=== PATIENT | male | born 1930 | race Caucasian/White ===

== ENCOUNTER 2016-12-26 10:30 | Inpatient (IN) | payer MEDICARE, OTHER ==
[~2016-12-26] VITALS: Ht 190.5 cm; Wt 78.0 kg
[2016-12-29] MEDS ORDERED: CALC500T17 PO (09:33)
[2016-12-29] MEDS ORDERED: SYNT112T PO (09:33)
[2016-12-29] MEDS ORDERED: AMIO200T PO (09:33)
[2016-12-29] MEDS ORDERED: ESCI10TA PO (09:33)
[2016-12-29] MEDS ORDERED: MULT1TAB84 PO (09:33)
[2016-12-29] MEDS ORDERED: LEVO.1 PO (09:33)
[2017-01-09] MEDS ORDERED: ceFAZolin 2 GM PREMIX 50 ML IV SCH (05:45)
[2017-01-09] MEDS ORDERED: CHLORHEXIDINE GLUCONATE 4% SOLN 120 ML BTL TOPICAL SCH (05:45)
[2017-01-09] MEDS ORDERED: INSULIN HUMAN REGULAR 1,000 UNITS/10 ML VIAL SQ PRN (05:45)
[2017-01-09] MEDS ORDERED: CHLORHEXIDINE GLUCONATE 2 % 1 PACK (2 CLOTHS) TOPICAL PRN (05:45)
[2017-01-09] MEDS ORDERED: LACTATED RINGER'S 1000 ML IV PRN (05:45)
[2017-01-09] MEDS ORDERED: POVIDONE IODINE 5% (ANTISEPSIS KIT) 4 APPLICATIONS EACH NARE PRN (05:45)
[2017-01-09] MEDS ORDERED: SODIUM CHLORID 0.9% 500 ML IV PRN (05:45)
[2017-01-09] MEDS ORDERED: METOPROLOL TARTRATE 25 MG TAB PO PRN (05:45)
[2017-01-09 05:49] VITALS: BP 155/78; PULSE 74; RESP 20; TEMP 97.9; O2SAT 97
[2017-01-09] MEDS ORDERED: GENTAMICIN SULFATE 80 MG/2 ML VIAL ONE (06:09)
[2017-01-09] MEDS ORDERED: fentaNYL CITRATE 250 MCG/5 ML AMP ONE (06:46)
[2017-01-09] MEDS ORDERED: FAMOTIDINE 20 MG/2 ML VIAL ONE (06:46)
[2017-01-09] MEDS ORDERED: MIDAZOLAM HCL 2 MG/2 ML VIAL ONE (06:46)
[2017-01-09] MEDS ORDERED: ACETAMINOPHEN 1000 MG/100 ML VIAL IV ONE (06:46)
[2017-01-09] MEDS ORDERED: DEXAMETHASONE SOD PHOS 4 MG/ML VIAL ONE (06:47)
[2017-01-09] MEDS ORDERED: TRANEXAMIC ACID INJ 779 MG in SODIUM CHLORIDE 0.9% INJ 100 ML IV SCH ×2 (07:00→10:00)
[2017-01-09] MEDS ORDERED: EXPAREL PERI-ARTICULAR INJECTION (TOTAL VOL. 60 ML) P-ARTICULR SCH ×2 (07:00)
[2017-01-09] MEDS ORDERED: SODIUM CHLORIDE 0.9% FLUSH 5 ML FLUSH IVF PRN (09:45)
[2017-01-09] MEDS ORDERED: Post-op Orders (for Pharmacy) MISC XX ONE (09:45)
[2017-01-09] MEDS ORDERED: ACETAMINOPHEN/HYDROcodone 325 MG/7.5 MG TAB PO PRN (09:45)
[2017-01-09] MEDS ORDERED: ONDANSETRON HCL 4 MG/2 ML VIAL IVP PRN (09:45)
[2017-01-09] MEDS ORDERED: BISACODYL 10 MG SUPP RECTAL PRN (09:45)
[2017-01-09] MEDS ORDERED: TRANEXAMIC ACID INJ 0 MG in SODIUM CHLORIDE 0.9% INJ 100 ML IV SCH (09:45)
[2017-01-09] MEDS ORDERED: MORPHINE SULFATE 8 MG/ML INJ IV PUSH PRN (09:45)
--- NOTE | 2017-01-09 09:49 | HHI.FF ---
Face to Face Verification Diagnosis: (1) Status post total hip replacement, right Physical Therapy Gait training Hip: Total hip, Protocol: Right, Posterior hip precautions, Progress to weight bearing Canvas Knee Splint: When in bed & 2 pillows btw thighs Right LE Weight Bearing: WB as tolerated Right LE Range of Motion: Active ROM Nursing Nursing: Dressing changes Dressing Changes: Daily dressing change, Coverderm/Primapore Additional Instructions Remove steristrips on postop day 14. I have seen patient Ranjit Cortez on 01/09/17. My clinical findings support the need for the requested home health care services because: Ltd mobility - disease progression Limited ability to care for self High risk of falls I certify that my clinical findings support that this patient is homebound because: Post-op weakness Unsteady gait/balance Unsafe to leave home unassisted Tea Linares MD (Charles) January 09, 2017 09:48
[2017-01-09] MEDS ORDERED: DO NOT ADM ANY ANTICOAGULANT DRUGS PRN (10:15)
[2017-01-09] MEDS ORDERED: *morphine SULFATE 8 MG/ML PERIprocedure ONLY ONE (10:21)
[2017-01-09] MEDS: LACTATED RINGER'S 1000 ML INJ 1,000 ML IV SCH ×2 (10:40→23:02)
[2017-01-09] MEDS: KETOROLAC TROMETHAMINE 30 MG/ML (IVP) VIAL IVP SCH ×3 (10:41→23:01)
--- NOTE | 2017-01-09 10:52 | RADRPT ---
EXAM DATE/TIME: 01/09/2017 10:22 [facility] COMPARISON: HIP RIGHT (AP & LAT), April 07, 2015, 16:30. INDICATIONS : Post op right hip replacement surgery. MEDICAL HISTORY : None. SURGICAL HISTORY : None. ENCOUNTER: Initial ACUITY: 1 day PAIN SCORE: 0/10 LOCATION: Right hip FINDINGS: 2 views of the hip reveal a total hip prosthesis in good position. No fracture or dislocation is obse rved. A small amount of air is seen within the joint. Soft tissue swelling is noted. CONCLUSION: Hip implant in good position. Ethan Spence Jr., MD on January 09, 2017 at 10:49 Board Certified Radiologist. This report was verified electronically.
[2017-01-09] MEDS: ACETAMINOPHEN/HYDROcodone 325 MG/7.5 MG TAB PO PRN (12:11)
--- NOTE | 2017-01-09 12:46 | MP ---
cc: Colton SHELBY. DATE OF SURGERY: 01/09/2017 PREOPERATIVE DIAGNOSIS Primary osteoarthritis right hip with retained hardware post in situ pinning with cannulated screws. POSTOPERATIVE DIAGNOSIS Primary osteoarthritis right hip with retained hardware post in situ pinning with cannulated screws. OPERATION PERFORMED Right total hip arthroplasty and removal of deep retained hardware, right hip. SURGEON Tea Shelby MD ELASTIC ATTACHER ZIGZAG BRODY [place] ANESTHESIA General endotracheal with supplemental local. INDICATIONS AND FINDINGS This 86-year-old man has had a two-year history of right hip pain subsequent to a subcapital fracture that was repaired by another surgeon locally. He has had progressive increase in pain with pain on ambulation and even rest pain. His ambulation tolerance is one-quarter mile because of the pain. He has stiffness and difficulty ascending and descending stairs and difficulty standing from a seated position. He has pain when trying to raise his leg. He has not responded to conservative measures with nonsteroidal anti-inflammatory agents, activity modification, exercise and ambulatory aids. Imaging studies showed significant arthritis in the right hip with loss of articular cartilage to [id number] with there being eburnation and osteophytes. There were three cannulated screws in the upper anterior border of the femoral head. The femoral head is out of round. Operative findings showed evidence of a healed subcapital fracture of the femur with there being severe osteoarthritis with osteophytes and eburnation. There were three cannulated screws in the femoral head. There was no sign of infection. PROCEDURE The patient was brought to the operating room and a general anesthetic was administered. He was placed in a lateral position on a Biomet lateral positioner with the right hip up. An axillary roll was placed under the left shoulder. The left shoulder was then prepped with alcohol, Hibiclens and ChloraPrep and draped in the usual manner with the hip draped free. He received prophylactic antibiotics in the form of Ancef 2 grams preoperatively and also received tranexamic acid. An appropriate timeout procedure was carried out. Local anesthesia was administered in the incision site prior to making the incision. A posterolateral incision was then made extending approximately 15 cm and centered over the posterior superior greater trochanter. The incision was deepened through subcutaneous tissues to the fascia satnam and gluteus fascia which were incised in line with their fibers and the skin incision. The posterior aspect of the hip was exposed. Dissection was carried down to the area of the screws. The screw heads were then exposed through an incision in the vastus lateralis near its origin. Attention was then directed back to the posterior aspect of the hip. The external rotators were transected off the posterior aspect of the greater trochanter along with the capsule which was reflected in a posteriorly based flap. The sciatic nerve was protected throughout the procedure. The hip was dislocated and some releases made to facilitate re-dislocation. The hip was then reduced again. The three screws were then serially removed. The hip was dislocated again. The femoral neck was transected. The femoral head was removed. Femoral preparation was then started with the box osteotome followed by the curved curet which identified the line of the medullary canal. Broaching was started at size 0 and went to a size 8. A size 8 broach was left in place. Calcar planing was not necessary. The hip was then repositioned. Retractors were placed about the acetabulum. The soft tissues were cleaned from the acetabulum. Hemostasis was achieved with a combination of electrocautery and suture ligatures during the procedure. The acetabulum was then reamed starting at size 49 and went in 1 mm increments up to size 58. A size 58 trial prosthesis was inserted and seated appropriately and was stable. This was then removed. A 58 mm tritanium cluster cup shell was impacted into place in the appropriate position after irrigating the acetabulum. When this was seated two screws were then placed, one 20 mm and one 25 mm for further stability. A 0 degree, 36 mm inner diameter liner was inserted and seated appropriately. With this seated attention was directed back to the femur. A trial prosthesis was inserted onto the broach for a 132 degree neck with a 0 and then a -5 mm neck length. The -5 appeared to be appropriate. The stability was excellent. The motion was excellent. There was no pistoning. The leg lengths were appropriate. This was then removed along with the broach. Local anesthesia was administered throughout the hip with Exparel. The medullary canal was cleaned with pulse lavage. The prosthesis which is a size 8 x 132 degree Accolade II stem was impacted into place and seated appropriately. Trial reduction showed the same findings as previously. The trunnion was cleaned and dried. A 36 mm diameter -5 mm neck length femoral head which was a [place] chrome head was impacted onto the trunnion. The hip was reduced. The capsular structures and external rotators were repaired back to bone with a Krackow technique and transosseous sutures. This was done with #1 Vicryl. The sciatic nerve was again inspected. The remainder of the Exparel was injected throughout the hip. The incision in the vastus laterals was repaired with #1 Vicryl interrupted [id number]-xf-[id number] sutures. The fascia satnam and gluteus fascia were repaired with the same suture and technique. The subcutaneous tissue was closed with 2-0 Vicryl interrupted simple sutures with buried knots. The skin was closed with continuous subcuticular closure of 4-0 Monocryl. The wound was dressed with Steri-Strips followed by dry dressing, sterile ABD and Medipore compression hip dressing. The leg was placed into a knee immobilizer. The patient was transported to the recovery room in satisfactory condition having tolerated the procedure well. Counts were correct. Specimens none. Estimated blood loss 600 mL. MD RADHA Alvarez/RUI /9:56 AM /12:29 PM
[2017-01-09 13:55] VITALS: BP 168/71; PULSE 73; RESP 16; TEMP 96.6; O2SAT 98
[2017-01-09] MEDS ORDERED: PROPOFOL 200 MG/20 ML AMP IV ONE (14:08)
[2017-01-09] MEDS ORDERED: NEOSTIGMINE METHYLSULFATE 10 MG/10 ML VIAL IV PUSH ONE (14:09)
[2017-01-09] MEDS ORDERED: PHENYLEPH/NS 1000 MCG/10 ML SYR IV ONE (14:10)
[2017-01-09] MEDS ORDERED: LACTATED RINGER'S 1000 ML INJ 1,000 ML IV ONE (14:10)
[2017-01-09] MEDS ORDERED: ONDANSETRON HCL 4 MG/2 ML VIAL IV PUSH ONE (14:10)
[2017-01-09 20:20] VITALS: BP 129/60; PULSE 75; RESP 18; TEMP 97.8; O2SAT 96
[2017-01-09] MEDS: SODIUM CHLORIDE 0.9% FLUSH 5 ML FLUSH IVF SCH (20:30)
[2017-01-09] MEDS ORDERED: ZOLPIDEM TARTRATE 5 MG TAB PO PRN (21:00)
[2017-01-10] VITALS (7 sets, daily range): BP systolic 110–125; BP diastolic 50–64; PULSE 67–75; RESP 16–18; TEMP 96.7–98.2; O2SAT 95–98
[2017-01-10] MEDS: LEVOTHYROXINE SODIUM 100 MCG TAB PO SCH (05:11)
[2017-01-10] MEDS: LEVOTHYROXINE SODIUM 112 MCG TAB PO SCH (05:11)
[2017-01-10] MEDS: MAGNESIUM HYDROXIDE SUSP 30 ML CUP PO PRN (05:11)
[2017-01-10] MEDS: KETOROLAC TROMETHAMINE 30 MG/ML (IVP) VIAL IVP SCH ×4 (05:11→23:18)
[2017-01-10 05:53] LABS: REVIEW FLAG FINAL
--- NOTE | 2017-01-10 07:36 | PD.ORT.PN ---
Subjective Post Op Day #: 1 Subjective Remarks He has minimal pain. He indicates that he walked a few steps in PACU and none when he got to the floor. Distance Walked 5 feet with PT. Objective Vitals Vital Signs Date Time Temp Pulse Resp B/P Pulse Ox O2 Delivery O2 Flow Rate FiO2 01/10/17 04:00 97.0 67 17 120/58 96 01/10/17 00:20 98.0 70 17 125/64 98 01/09/17 20:20 97.8 75 18 129/60 96 01/09/17 13:55 96.6 73 16 168/71 98 01/09/17 12:30 67 16 157/78 100 Nasal Cannula 2 01/09/17 10:30 65 16 135/63 100 Nasal Cannula 2 01/09/17 10:15 66 16 140/63 100 Nasal Cannula 2 01/09/17 10:00 68 16 149/68 99 Nasal Cannula 2 01/09/17 09:59 97.7 67 16 154/69 100 Nasal Cannula 2 I/O 01/09/17 01/09/17 01/09/17 01/10/17 01/10/17 01/10/17 07:00 15:00 23:00 07:00 15:00 23:00 Intake Total 1850 ml 750 ml 859 ml Output Total 600 ml 200 ml 500 ml Balance 1250 ml 550 ml 359 ml Intake Oral 250 ml 120 ml 240 ml IV Total 400 ml 630 ml 619 ml Other 1200 ml Output Urine Total 0 ml 200 ml 500 ml Estimated Blood Loss 600 ml Other 0 ml # Bowel Movements 0 0 Result Diagram: 01/10/17 0345 Imaging Hip x-ray looks good. Last 72 hours Impressions Hip X-Ray 01/09/17 0000 Signed Impressions: Service Date/Time: Monday, January 09, 2017 10:22 - CONCLUSION: Hip implant in good position. Ethan Spence Jr., MD Objective Remarks He is resting comfortably, supine in bed. The neurovascular status is intact. The dressing is dry and intact. Assessment & Plan Ortho Post Op Day #: 1 Problem List: (1) Status post total hip replacement, right Plan: Continue poastop care and PT. Assessment and Plan Condition: Good. Orthopaedically stable. DVT prophylaxis: TEDs, sequentials, ASA. Discharge plans: Home with home health care. Has appointment. Tea Linares MD (Charles) January 10, 2017 07:36
[2017-01-10] MEDS ORDERED: HYDR-3580 PO (08:00)
[2017-01-10] MEDS ORDERED: ASPI81TA11 PO (08:00)
[2017-01-10] MEDS: CALCIUM CARBONATE 1.25 GM (CA 500 MG) TAB PO SCH (08:49)
[2017-01-10] MEDS: AMIODARONE 200 MG TAB PO SCH (08:49)
[2017-01-10] MEDS: MULTIVITAMINS/MINERALS THERAPEUTIC TAB PO SCH (08:49)
[2017-01-10] MEDS: ESCITALOPRAM OXALATE 10 MG TAB PO SCH (08:50)
[2017-01-10] MEDS: SODIUM CHLORIDE 0.9% FLUSH 5 ML FLUSH IVF SCH ×2 (08:51→20:15)
[2017-01-10] MEDS: ASPIRIN EC 81 MG TABEC PO SCH ×2 (08:51→20:15)
[2017-01-10] MEDS: LACTATED RINGER'S 1000 ML INJ 1,000 ML IV SCH ×2 (10:40→23:10)
--- NOTE | 2017-01-10 12:17 | PD.CONS ---
[facility] Reason for Consult Medical management Primary Care Physician Nguyễn Roberts MD Diagnoses: History of Present Illness 86 years old male admitted for right total hip arthroplasty, patient from [place] he told me he has a history of hypothyroidism he takes Synthroid, he also was told that he has a murmur but not significant as well as that he has minimal nonsignificant level of CHF. Patient stated his blood pressure usually around 125/50, he is not on KIMI inhibitor or diuretic. He told me he follow up every 4 months with his breakfast hostess. Currently he denied any chest pain short of breath headache lightheaded abdominal pain diarrhea constipation. However he reported chronic fatigue and feeling tired, especially on exertion but he denied specific chest pain or short of breath. I advised with him extensively to continue following up closely with his breakfast hostess and primary care physician and at the same time organ a check his TSH, CBC and BMP and electrolyte as well as BNP Review of Systems Constitutional: COMPLAINS OF: Fatigue Except as stated in HPI: all other systems reviewed are Neg Past Family Social History Allergies: Uncoded Allergies: RUBBER (Allergy, Severe, ITCHING, 12/29/16) Past Medical History Hypothyroidism Patient was told he had minimal level of CHF, and nonsignificant heart murmur Atrial fibrillation Hypertension Hypothyroidism Colon cancer Past Surgical History Colon resection for colon cancer Family History Significant for diabetes mellitus Social History He drinks one drink 5 times a week, no alcohol or illicit drug abuse Physical Exam Vital Signs Vital Signs Date Time Temp Pulse Resp B/P Pulse Ox O2 Delivery O2 Flow Rate FiO2 01/10/17 09:33 98 Nasal Cannula 2.00 01/10/17 08:00 98.0 75 16 114/52 96 01/10/17 04:00 97.0 67 17 120/58 96 01/10/17 00:20 98.0 70 17 125/64 98 01/09/17 20:20 97.8 75 18 129/60 96 01/09/17 13:55 96.6 73 16 168/71 98 01/09/17 12:30 67 16 157/78 100 Nasal Cannula 2 Physical Exam GENERAL: This is a well-nourished, well-developed patient, in no apparent distress. SKIN: No rashes, warm and dry HEAD: Atraumatic. Normocephalic. EYES: Pupils equal round and reactive. Extraocular motions intact. No scleral icterus. ENT: Nose without bleeding, or drainage, Airway patent. NECK: Trachea midline. Supple CARDIOVASCULAR: Regular rate and rhythm 4/6 systolic crescendo decrescendo murmur RESPIRATORY: Fair air entry bilaterally. No wheezes, rales, or rhonchi. GASTROINTESTINAL: Abdomen soft, non-tender, nondistended. Positive bowel sounds MUSCULOSKELETAL: Extremities without clubbing, cyanosis, or edema. Pedal pulses appreciated NEUROLOGICAL: Awake and alert. Moves all extremity. Normal speech.no focal neurological deficit Laboratory Laboratory Tests Test 01/10/17 03:45 Hemoglobin 9.2 Hematocrit 29.0 Result Diagram: 01/10/17 0345 Imaging Last Impressions Hip X-Ray 01/09/17 0000 Signed Impressions: Service Date/Time: Monday, January 09, 2017 10:22 - CONCLUSION: Hip implant in good position. Ethan Spence Jr., MD Assessment and Plan Assessment and Plan 86 years old male with history of hypothyroidism heart murmur hypertension admitted for -Right total hip arthroplasty: Doing well post op, pain management, DVT prophylaxis per ortho -Complain of constant fatigue> will check TSH, CBC to rule out anemia, patient and his family about reason for his fatigue, patient confirmed to me along with his family that he t sees his breakfast hostess every 4 months, he doesn't know what' s the valvulopathy he has but he was told it's not significant -History of CHF with systolic heart murmur 4/6 last 2-D echo 2 years ago as per the patient but he is following up closely every 4 months with his breakfast hostess , will check BMP, BNP Rodger Cain MD January 10, 2017 12:17
[2017-01-10 13:37] LABS: AUTOMATED NEUTROPHIL # 12.9 TH/MM3 (1.8-7.7); BASOPHIL # 0.1 TH/MM3 (0-0.2); BASOPHIL % 0.4 % (0.0-2.0); HEMATOCRIT 30.3 % (39.0-51.0); HEMO FLAGS DIFF FINAL; LYMPHOCYTE # 1.5 TH/MM3 (1.0-4.8); MEAN CELL VOLUME 82.7 FL (80.0-100.0); MEAN CORPUSCULAR HEMOGLOBIN 26.3 PG (27.0-34.0); MEAN CORPUSCULAR HGB CONC 31.9 % (32.0-36.0); NEUT % 79.6 % (16.0-70.0); PLATELET COUNT 232 TH/MM3 (150-450); RED BLOOD COUNT 3.67 MIL/MM3 (4.50-5.90); RED CELL DISTRIBUTION WIDTH 13.8 % (11.6-17.2); WHITE BLOOD COUNT 16.2 TH/MM3 (4.0-11.0)
[2017-01-10 13:56] LABS: BICARBONATE 27.6 MEQ/L (21.0-32.0); POTASSIUM 4.3 MEQ/L (3.5-5.1)
[2017-01-10] MEDS: DOCUSATE SODIUM 100 MG CAP PO SCH (20:15)
[2017-01-11] VITALS: BP 137/62; PULSE 77; RESP 17; TEMP 97; O2SAT 93
[2017-01-11 04:15] VITALS: BP 122/57; PULSE 67; RESP 16; TEMP 97.1; O2SAT 96
[2017-01-11] MEDS: KETOROLAC TROMETHAMINE 30 MG/ML (IVP) VIAL IVP SCH (05:24)
[2017-01-11] MEDS: LEVOTHYROXINE SODIUM 100 MCG TAB PO SCH (05:24)
[2017-01-11] MEDS: LEVOTHYROXINE SODIUM 112 MCG TAB PO SCH (05:24)
[2017-01-11] MEDS: ACETAMINOPHEN/HYDROcodone 325 MG/7.5 MG TAB PO PRN ×2 (05:27→10:17)
[2017-01-11 06:04] LABS: HEMATOCRIT 25.7 % (39.0-51.0); REVIEW FLAG FINAL
--- NOTE | 2017-01-11 06:44 | PD.ORT.PN ---
Subjective Post Op Day #: 2 Subjective Remarks He has minimal pain. He attended the class. He is ready to go home. Distance Walked 72 feet twice with PT. Objective Vitals Vital Signs Date Time Temp Pulse Resp B/P Pulse Ox O2 Delivery O2 Flow Rate FiO2 01/11/17 04:15 97.1 67 16 122/57 96 01/11/17 00:00 97.0 77 17 137/62 93 01/10/17 20:01 21 01/10/17 20:00 97.6 72 16 114/51 96 01/10/17 16:00 98.2 73 18 117/54 98 01/10/17 12:00 96.7 73 16 110/50 95 01/10/17 09:33 98 Nasal Cannula 2.00 01/10/17 08:00 98.0 75 16 114/52 96 I/O 01/10/17 01/10/17 01/10/17 01/11/17 01/11/17 01/11/17 07:00 15:00 23:00 07:00 15:00 23:00 Intake Total 859 ml 980 ml 460 ml 320 ml Output Total 500 ml 400 ml 600 ml Balance 359 ml 980 ml 60 ml -280 ml Intake Oral 240 ml 980 ml 460 ml 320 ml IV Total 619 ml Output Urine Total 500 ml 400 ml 600 ml # Voids 2 # Bowel Movements 0 0 0 0 Result Diagram: 01/11/17 0523 01/10/17 1317 Imaging Hip x-ray looks good. Last 72 hours Impressions Hip X-Ray 01/09/17 0000 Signed Impressions: Service Date/Time: Monday, January 09, 2017 10:22 - CONCLUSION: Hip implant in good position. Ethan Spence Jr., MD Objective Remarks He is resting comfortably, supine in bed. The neurovascular status is intact. The new dressing is dry and intact. Assessment & Plan Ortho Post Op Day #: 2 Problem List: (1) Status post total hip replacement, right Plan: Continue postop care and PT. Assessment and Plan Condition: Good. Orthopaedically stable. DVT prophylaxis: TEDs, sequentials, ASA. Discharge plans: Home with home health care. Has appointment. Rx [place] 7.5/325 Tea Linares MD (Charles) January 11, 2017 06:44
[2017-01-11 08:00] VITALS: BP 114/57; PULSE 67; RESP 18; TEMP 97.9; O2SAT 92
[2017-01-11] MEDS: SODIUM CHLORIDE 0.9% FLUSH 5 ML FLUSH IVF SCH (09:00)
[2017-01-11] MEDS: ESCITALOPRAM OXALATE 10 MG TAB PO SCH (10:16)
[2017-01-11] MEDS: AMIODARONE 200 MG TAB PO SCH (10:16)
[2017-01-11] MEDS: CALCIUM CARBONATE 1.25 GM (CA 500 MG) TAB PO SCH (10:16)
[2017-01-11] MEDS: ASPIRIN EC 81 MG TABEC PO SCH (10:16)
[2017-01-11] MEDS: MULTIVITAMINS/MINERALS THERAPEUTIC TAB PO SCH (10:16)
[2017-01-11] MEDS: DOCUSATE SODIUM 100 MG CAP PO SCH (10:16)
[2017-01-11] MEDS: MAGNESIUM HYDROXIDE SUSP 30 ML CUP PO PRN (10:16)
[2017-01-11] MEDS: LACTATED RINGER'S 1000 ML INJ 1,000 ML IV SCH (10:17)
--- NOTE | 2017-01-29 09:24 | MD ---
cc: Colton SHELBY. ADMISSION DATE: 01/09/2017 DISCHARGE DATE: 01/11/2017 ADMISSION DIAGNOSIS Osteoarthritis right hip with retained hardware post in situ pinning with cannulated screws. FINAL DIAGNOSIS Osteoarthritis right hip with retained hardware post in situ pinning with cannulated screws. OPERATIONS DURING THE HOSPITALIZATION Right total hip arthroplasty with removal of deep retained hardware right hip on 01/09/2017. PRESENT ILLNESS This 86-year-old man has a 2-year history of right hip pain progressively worsening subsequent to a subcapital fracture treated with screws. His ambulation tolerance is one-quarter mile. He has stiffness with difficulty ascending and descending stairs and difficulty standing from a seated position. He had pain when trying to raise the leg and had not responded to conservative measures with nonsteroidal anti-inflammatory agents, activity modification, exercise and ambulatory aids. Physical findings showed limited range of motion in the hip with tenderness on motion and a well-healed scar. Imaging studies showed severe osteoarthritis with loss of articular cartilage to [id number] with eburnation osteophytes along with three cannulated screws in the upper anterior border of the femoral head. The femoral head was well out of round. HOSPITAL COURSE The patient was admitted on 01/09/2017. After discussion with the anesthesiologist, he was taken to the clean-air operating suite where a general anesthetic was administered. He received prophylactic antibiotics in the form of Ancef. He also received tranexamic acid. A total hip arthroplasty and removal of hardware was carried out at that time. He tolerated the procedure well. On the first postoperative day he did indicate that he had walked a few steps in the Post-Anesthesia Care Unit but none on the floor. He walked 5 feet with the therapist. He had minimal pain. His temperature was 98.0. He was stable and felt comfortable. Hemoglobin was 9.2 with a hematocrit of 29.0. X-rays showed excellent position and alignment of the prosthesis. His neurovascular status was intact. Arrangements were made for eventual discharge home with home health care. On the second postoperative day he also had minimal pain. He indicated that he had attended class and indicated the desire to return home. The day before he walked 72 feet, twice with physical therapy. His maximum temperature was 98.2. His vital signs remained stable. His hemoglobin was 8.4 with hematocrit of 25.7. Arrangements were made for discharge home with home health care after therapy. On the day of discharge he did walk 75 feet twice with physical therapist as well. He tolerated this well. He was discharged home on this day with home health care being arranged. Follow-up appointment was scheduled. DISCHARGE MEDICATIONS 1. Hawley 7.5/325 for pain. 2. He was to continue using his NICK stockings and aspirin as an anticoagulant. He was also instructed on the use of a canvas knee splint while sleeping. MD RADHA Alvarez/ALEXANDER /10:17 AM /9:17 AM
== END 2017-01-11 12:28 | disposition home health service (06) | DRG 470 ==
LOC: HSDI 01-09 05:16 → N06A 01-09 14:03
PROVIDERS: ADMIT Orthopaedic Surgery; ATTEND Orthopaedic Surgery
PROC: 0SR901A Replacement of Right Hip Joint with Metal Synthetic Substitute, Uncemented, Open Approach (ICD-10-PCS; principal; 2017-01-09 06:46)
DX: M16.11 Unilateral primary osteoarthritis, right hip (principal); I50.22 Chronic systolic (congestive) heart failure; I10 Essential (primary) hypertension; E03.9 Hypothyroidism, unspecified; Z85.038 Personal history of other malignant neoplasm of large intestine
CPT/HCPCS: 73502; 80048; 84443; 85014; 85018; 85025; 86850; 86900; 86901; 94150; C1776; C9290; J0131; J0690; J1100; J1580; J1885; J2250; J2270; J2370; J2405; J2710; J3010; J7120; L1830

== ENCOUNTER → 2016-12-29 | Outpatient (CLI) | payer MEDICARE, OTHER ==
[~2016-12-29] MED LIST: AMIO200T PO; ASPI81TA11 PO; CALC500T17 PO; ENOX30P SQ; ESCI10TA PO; HYDR-3580 PO; LEVO.1 PO; LEVO50IN PO; LISI-360 PO; MULT1TAB84 PO; MVI PO; NYST500KS SWISH-SWAL; PROS5TAB2 PO; SYNT112T PO
[2016-12-29 10:03] LABS: HEMATOCRIT 40.1 % (39.0-51.0); MEAN CELL VOLUME 82.4 FL (80.0-100.0); MEAN CORPUSCULAR HEMOGLOBIN 26.2 PG (27.0-34.0); MEAN CORPUSCULAR HGB CONC 31.8 % (32.0-36.0); PLATELET COUNT 289 TH/MM3 (150-450); RED BLOOD COUNT 4.87 MIL/MM3 (4.50-5.90); RED CELL DISTRIBUTION WIDTH 13.2 % (11.6-17.2); REVIEW FLAG FINAL; WHITE BLOOD COUNT 11.8 TH/MM3 (4.0-11.0)
[2016-12-29 10:13] LABS: APTT (PATIENT) 29.9 SEC (24.3-30.1); PROTHROMBIN TIME - PATIENT 10.7 SEC (9.8-11.6)
[2016-12-29 10:34] LABS: BICARBONATE 30.8 MEQ/L (21.0-32.0); POTASSIUM 4.5 MEQ/L (3.5-5.1)
[2016-12-29 12:10] LABS: BLOOD, URINE NEG (NEG); COMMENT (UR) CULT NOT INDICATED; CULTURE IF INDICATED CULT NOT INDICATED; GLUCOSE,URINE NEG (NEG); HYALINE CAST, URINE 12 /lpf (RARE); KETONE, URINE NEG (NEG); MUCUS URINE FEW /lpf (OCC); NITRITE,URINE NEG (NEG); PH, URINE 6.5 (5.0-8.5); URINE COLOR YELLOW (YELLW/STRAW)
--- NOTE | 2016-12-29 19:36 | EKG ---
Date Performed: 12/29/2016 Time Performed: 09:18:38 PTAGE: 86 years EKG: Sinus rhythm Compared to prior tracing no significant change NORMAL ECG PREVIOUS TRACING : 03/26/2015 22.41 DOCTOR: Nik Brenner Interpretating Date/Time 12/29/2016 19:33:30
== END ==
LOC: CPRE 08:47
PROVIDERS: ATTEND Orthopaedic Surgery
DX: Z01.812 Encounter for preprocedural laboratory examination (principal); Z01.810 Encounter for preprocedural cardiovascular examination; I48.0 Paroxysmal atrial fibrillation; M16.11 Unilateral primary osteoarthritis, right hip; S72.091 Other fracture of head and neck of right femur; Z47.2 Encounter for removal of internal fixation device; M79.609 Pain in unspecified limb; X58.XXXS Exposure to other specified factors, sequela
CPT/HCPCS: 36415; 80048; 81001; 85027; 85610; 85730; 93005

== ENCOUNTER 2017-01-13 12:25 | Inpatient (IN) | payer MEDICARE, OTHER ==
[2017-01-13] VITALS (16 sets, daily range): BP systolic 112–152; BP diastolic 54–73; PULSE 68–86; RESP 12–26; TEMP 97.4–98.6; O2SAT 20–100
[~2017-01-13] VITALS: Ht 190.5 cm; Wt 71.8 kg
[~2017-01-13 12:25] MED LIST changes: -ENOX30P SQ; -LEVO50IN PO; -LISI-360 PO; -MVI PO; -NYST500KS SWISH-SWAL; -PROS5TAB2 PO
[2017-01-13 12:47] LABS: BLOOD GAS HCO3 25 mmol/L (22-26); BLOOD GAS METHEMOGLOBIN 0.6 % (0-2); BLOOD GAS O2 HGB SATURATION 56 % (90-100); BLOOD GAS OXYGEN CONTENT 7.1 Vol % (12.0-20.0); BLOOD GAS PCO2 35 mmHg (38-42); BLOOD GAS PO2 29 mmHG (61-120); CRITICAL VALUE YES; DRAW SITE RT RADIAL; FIO2 21 %; NUMBER OF ARTERIAL PUNCTURES 1; OXYGEN DEVICE ROOM AIR; STAT YES; TEMP CORR TO 98.6; ULNAR PULSE PRESENT
--- NOTE | 2017-01-13 13:03 | PD ---
HPI Chief Complaint: Respiratory Symptoms Time Seen by Provider: 12:41 Travel History International Travel<30 days: No Contact w/Intl Traveler<30days: No Traveled to known affect area: No History of Present Illness HPI Patient is an 86-year-old male who presents to emergency room with complaints of shortness of breath. As per EMS, patient had a right hip replacement performed on Sunday by Dr. Linares. Patient reports that he was discharged to home on . Patient reports that he felt fine after his discharge, reports that he began to feel sick last night. Patients reports that patient had the chills, reports that he was feeling weak and has had a productive cough since last night.. Reports that this morning, he was complaining of shortness of breath. When patient's home nurse arrived, she noted that patients pulse ox was 35%on room air. Patient does not use home O2. EMS were called, fire rescue reports that patient's pulse ox was 50% on room air. Patient was put on a nonrebreather which brought his pulse ox to 80%. When EMS arrived on scene, patient's pulse ox went to the low 90s on a nonrebreather. Patient reports that he felt short of breath prior to being placed on oxygen, reports that he is feeling much better with oxygen in place. Patient does have history of hypothyroidism, CHF, A. fib, hypertension, colon cancer, he currently takes a baby aspirin and is not on any anticoagulants. PFSH Past Medical History Hx Anticoagulant Therapy: Yes (ASA ) Arthritis: Yes (Right Hip ) Asthma: No Atrial Fibrillation: Yes Autoimmune Disease: No Anxiety: No Depression: No Heart Rhythm Problems: Yes (A-Fib ) Cancer: Yes (COLON 2008 s/p Colon section ) Cardiovascular Problems: Yes (MURMUR, AFIB ) High Cholesterol: No Chemotherapy: Yes Chest Pain: No Congestive Heart Failure: No COPD: No Cerebrovascular Accident: No Diabetes: No Diminished Hearing: No Endocrine: Yes GERD: No Genitourinary: Yes (FREQUENCY AT HS) Hepatitis: No Hiatal Hernia: Yes Immune Disorder: No Kidney Stones: No Musculoskeletal: Yes (OA) Neurologic: Yes Psychiatric: No Reproductive: No Respiratory: No Migraines: No Radiation Therapy: No Renal Failure: No Seizures: No Sickle Cell Disease: No Sleep Apnea: No Thyroid Disease: Yes (hypothyroidism) Ulcer: No Past Surgical History Abdominal Surgery: Yes (COLON RESECTION secondary to colon CA 2007,HERNIA REPAIR) AICD: No Arteriovenous Shunt: No Body Medical Devices: SCREWS RIGHT LEG Cardiac Surgery: No Ear Surgery: No Endocrine Surgery: No Eye Surgery: No Genitourinary Surgery: No Gynecologic Surgery: No Insulin Pump: Yes Joint Replacement: Yes (S/P ORIF right hip ) Oral Surgery: No Pacemaker: No Thoracic Surgery: No Social History Alcohol Use: Yes (ONE DRINK EVERY OTHER DAY) Tobacco Use: No Substance Use: No Allergies-Medications (Allergen,Severity, Reaction): Uncoded Allergies: RUBBER (Allergy, Severe, ITCHING, 12/29/16) Reported Meds & Prescriptions Reported Meds & Active Scripts Active Hydrocodone-Acetaminophen 7.5-325 mg Tab 1 Tab PO Q4H PRN Aspirin EC (Aspirin) 81 Mg Tabdr 81 Mg PO BID Reported Calcium (Calcium Carbonate) 1,250 Mg Tab 1,250 Mg PO DAILY 1,250 mg calcium carbonate (500 mg elemental calcium) Multivitamin Adults (Multiple Vitamins W/ Minerals) 1 Tab 1 Tab PO DAILY Amiodarone (Amiodarone HCl) 200 Mg Tab 200 Mg PO DAILY Synthroid (Levothyroxine Sodium) 100 Mcg Tab 100 Mcg PO DAILY take with 112 mcg for toatal sose of 212mcg Synthroid (Levothyroxine Sodium) 112 Mcg Tab 112 Mcg PO DAILY take with 100 mcg for toatal sose of 212mcg Review of Systems General / Constitutional: No: Fever Eyes: No: Visual changes HENT: No: Headaches Cardiovascular: No: Chest Pain or Discomfort Respiratory: Positive: Cough, Shortness of Breath Gastrointestinal: No: Abdominal Pain Genitourinary: No: Dysuria Musculoskeletal: No: Pain Skin: No Rash Neurologic: No: Weakness Psychiatric: No: Depression Endocrine: No: Polydipsia Hematologic/Lymphatic: No: Easy Bruising Physical Exam Narrative GENERAL: moderate distress, patient hypoxic on exam SKIN: Focused skin assessment warm/dry. HEAD: Atraumatic. Normocephalic. EYES: Pupils equal and round. No scleral icterus. No injection or drainage. ENT: No nasal bleeding or discharge. Mucous membranes pink and moist. NECK: Trachea midline. No JVD. CARDIOVASCULAR: Regular rate and rhythm. No murmur appreciated. RESPIRATORY: No accessory muscle use. rhonchi to lung bases. GASTROINTESTINAL: Abdomen soft, non-tender, nondistended. Hepatic and splenic margins not palpable. MUSCULOSKELETAL: No obvious deformities. No clubbing. No cyanosis. No edema. NEUROLOGICAL: Awake and alert. No obvious cranial nerve deficits. Motor grossly within normal limits. Normal speech. PSYCHIATRIC: Appropriate mood and affect; insight and judgment normal. Data Data Last Documented VS Vital Signs Date Time Temp Pulse Resp B/P Pulse Ox O2 Delivery O2 Flow Rate FiO2 01/13/17 14:22 97 01/13/17 13:15 79 18 134/68 Non-Rebreather 15 01/13/17 12:48 21 01/13/17 12:25 98.6 Orders Complete Blood Count With Diff (01/13/17 12:41) Comprehensive Metabolic Panel (01/13/17 12:41) Prothrombin Time / Inr (Pt) (01/13/17 12:41) Act Partial Throm Time (Ptt) (01/13/17 12:41) Lactic Acid Sepsis Protocol (01/13/17 12:41) Magnesium (Mg) (01/13/17 12:41) Ckmb (Isoenzyme) Profile (01/13/17 12:41) Troponin I (01/13/17 12:41) Urinalysis - C+S If Indicated (01/13/17 12:41) Influenzae A/B Antigen (01/13/17 12:41) Blood Culture (01/13/17 12:41) Chest, Single Ap (01/13/17 12:41) Arterial Blood Gas (Abg) (01/13/17 12:41) Blood Glucose (01/13/17 12:41) Ecg Monitoring (01/13/17 12:41) Iv Access Insert/Monitor (01/13/17 12:41) Oximetry (01/13/17 12:41) Oxygen Administration (01/13/17 12:41) B-Type Natriuretic Peptide (01/13/17 12:52) I-Stat Profile (01/13/17 12:52) I-Stat Creatinine (01/13/17 12:52) Furosemide Inj (Lasix Inj) (01/13/17 13:15) Ct Pulmonary Angiogram (01/13/17 13:13) Piperacil-Tazo 3.375 Gm Premix (Zosyn 3. (01/13/17 13:45) Vancomycin Inj (Vancomycin Inj) (01/13/17 13:45) CKMB (01/13/17 12:50) CKMB% (01/13/17 12:50) Aspirin Chew (Aspirin Chew) (01/13/17 14:00) Iohexol 350 Inj (Omnipaque 350 Inj) (01/13/17 13:57) Resp Bipap / Cpap Non Invas Vt (01/13/17 ) Labs Laboratory Tests Test 01/13/17 01/13/17 12:41 12:50 Blood Gas Puncture Site RT RADIAL Blood Gas Patient Temperature 98.6 Blood Gas HCO3 25 mmol/L Blood Gas Base Excess 2.0 mmol/L Blood Gas Oxygen Saturation 56 % Arterial Blood pH 7.48 Arterial Blood Partial 35 mmHg Pressure CO2 Arterial Blood Partial 29 mmHG Pressure O2 Arterial Blood Oxygen Content 7.1 Vol % Arterial Blood 2.0 % Carboxyhemoglobin Arterial Blood Methemoglobin 0.6 % Blood Gas Hemoglobin 9.0 G/DL Oxygen Delivery Device ROOM AIR Blood Gas Inspired Oxygen 21 % White Blood Count 22.4 TH/MM3 Red Blood Count 3.50 MIL/MM3 Hemoglobin 9.4 GM/DL Bedside Hemoglobin 9.5 G/DL Hematocrit 28.9 % Bedside Hematocrit 28.0 % Mean Corpuscular Volume 82.5 FL Mean Corpuscular Hemoglobin 26.8 PG Mean Corpuscular Hemoglobin 32.5 % Concent Red Cell Distribution Width 14.0 % Platelet Count 303 TH/MM3 Mean Platelet Volume 7.5 FL Neutrophils (%) (Auto) 85.9 % Lymphocytes (%) (Auto) 5.3 % Monocytes (%) (Auto) 8.6 % Eosinophils (%) (Auto) 0.0 % Basophils (%) (Auto) 0.2 % Neutrophils # (Auto) 19.3 TH/MM3 Lymphocytes # (Auto) 1.2 TH/MM3 Monocytes # (Auto) 1.9 TH/MM3 Eosinophils # (Auto) 0.0 TH/MM3 Basophils # (Auto) 0.1 TH/MM3 CBC Comment DIFF FINAL Differential Comment Prothrombin Time 11.5 SEC Prothromb Time International 1.0 RATIO Ratio Activated Partial 32.7 SEC Thromboplast Time Bedside Sodium 138 MMOL/L Sodium Level 140 MEQ/L Bedside Potassium 5.1 MMOL/L Potassium Level 5.1 MEQ/L Bedside Chloride 102 MMOL/L Chloride Level 104 MEQ/L Carbon Dioxide Level 27.3 MEQ/L Anion Gap 9 MEQ/L Bedside Blood Urea Nitrogen 27 MG/DL Blood Urea Nitrogen 27 MG/DL Creatinine 1.32 MG/DL Bedside Creatinine 1.2 MG/DL Estimat Glomerular Filtration 52 ML/MIN Rate Bedside Glucose 155 MG/DL Random Glucose 151 MG/DL Lactic Acid Level 2.6 mmol/L Calcium Level 8.7 MG/DL Magnesium Level 2.5 MG/DL Total Bilirubin 1.1 MG/DL Aspartate Amino Transf 106 U/L (AST/SGOT) Alanine Aminotransferase 63 U/L (ALT/SGPT) Alkaline Phosphatase 86 U/L Total Creatine Kinase 130 U/L Creatine Kinase MB 3.2 NG/ML Troponin I 0.68 NG/ML B-Type Natriuretic Peptide 782 PG/ML Total Protein 6.0 GM/DL Albumin 2.5 GM/DL [facility] Medical Decision Making Medical Screen Exam Complete: Yes Emergency Medical Condition: Yes Interpretation(s) ekg at 1238: NSR at 90bpm, 1st degree av block with nonspecific st and t wave changes Vital Signs Date Time Temp Pulse Resp B/P Pulse Ox O2 Delivery O2 Flow Rate FiO2 01/13/17 12:50 96 Non-Rebreather 15.00 01/13/17 12:48 52 21 01/13/17 12:25 97 Non-Rebreather 15 01/13/17 12:25 98.6 84 18 133/62 56 Differential Diagnosis Pulmonary embolism, flash pulmonary edema, CHF, ACS, electrolyte abnormality Narrative Course Patient is an 86-year-old male who presents to emergency room with hypoxia. Patient had a right hip arthroscopy and total hip replacement on Sunday, presents to ER with c/o of sob and hypoxia. Patient was 35% on room air by his home RN, fire rescue reported a pulse ox of 50% on room and and then was placed on nonrebreather. Patient did have a pulse ox of 50% on Room air while in the ER. Patient with recent hip replacement, concern for possible PE vs flash pulmonary edema given his xray of chest. I- STAT labs sent. Patient was put on a nonrebreather. Vital Signs Date Time Temp Pulse Resp B/P Pulse Ox O2 Delivery O2 Flow Rate FiO2 01/13/17 14:22 97 01/13/17 13:15 79 18 134/68 97 Non-Rebreather 15 01/13/17 12:50 96 Non-Rebreather 15.00 01/13/17 12:48 52 21 01/13/17 12:25 83 18 97 Non-Rebreather 15 01/13/17 12:25 82 18 133/62 97 Non-Rebreather 15 01/13/17 12:25 97 Non-Rebreather 15 01/13/17 12:25 98.6 84 18 133/62 56 Laboratory Tests Test 01/13/17 01/13/17 12:41 12:50 Blood Gas Puncture Site RT RADIAL Blood Gas Patient Temperature 98.6 Blood Gas HCO3 25 mmol/L (22-26) Blood Gas Base Excess 2.0 mmol/L (-2-2) Blood Gas Oxygen Saturation 56 % (90-100) Arterial Blood pH 7.48 (7.380-7.420) Arterial Blood Partial 35 mmHg (38-42) Pressure CO2 Arterial Blood Partial 29 mmHG Pressure O2 (61-120) Arterial Blood Oxygen Content 7.1 Vol % (12.0-20.0) Arterial Blood 2.0 % (0-4) Carboxyhemoglobin Arterial Blood Methemoglobin 0.6 % (0-2) Blood Gas Hemoglobin 9.0 G/DL (12.0-16.0) Oxygen Delivery Device ROOM AIR Blood Gas Inspired Oxygen 21 % White Blood Count 22.4 TH/MM3 (4.0-11.0) Red Blood Count 3.50 MIL/MM3 (4.50-5.90) Hemoglobin 9.4 GM/DL (13.0-17.0) Bedside Hemoglobin 9.5 G/DL (12.0-17.0) Hematocrit 28.9 % (39.0-51.0) Bedside Hematocrit 28.0 % (38.0-51.0) Mean Corpuscular Volume 82.5 FL (80.0-100.0) Mean Corpuscular Hemoglobin 26.8 PG (27.0-34.0) Mean Corpuscular Hemoglobin 32.5 % Concent (32.0-36.0) Red Cell Distribution Width 14.0 % (11.6-17.2) Platelet Count 303 TH/MM3 (150-450) Mean Platelet Volume 7.5 FL (7.0-11.0) Neutrophils (%) (Auto) 85.9 % (16.0-70.0) Lymphocytes (%) (Auto) 5.3 % (9.0-44.0) Monocytes (%) (Auto) 8.6 % (0.0-8.0) Eosinophils (%) (Auto) 0.0 % (0.0-4.0) Basophils (%) (Auto) 0.2 % (0.0-2.0) Neutrophils # (Auto) 19.3 TH/MM3 (1.8-7.7) Lymphocytes # (Auto) 1.2 TH/MM3 (1.0-4.8) Monocytes # (Auto) 1.9 TH/MM3 (0-0.9) Eosinophils # (Auto) 0.0 TH/MM3 (0-0.4) Basophils # (Auto) 0.1 TH/MM3 (0-0.2) CBC Comment DIFF FINAL Differential Comment Prothrombin Time 11.5 SEC (9.8-11.6) Prothromb Time International 1.0 RATIO Ratio Activated Partial 32.7 SEC Thromboplast Time (24.3-30.1) Bedside Sodium 138 MMOL/L (138-146) Sodium Level 140 MEQ/L (136-145) Bedside Potassium 5.1 MMOL/L (3.5-4.9) Potassium Level 5.1 MEQ/L (3.5-5.1) Bedside Chloride 102 MMOL/L (98-109) Chloride Level 104 MEQ/L (98-107) Carbon Dioxide Level 27.3 MEQ/L (21.0-32.0) Anion Gap 9 MEQ/L (5-15) Bedside Blood Urea Nitrogen 27 MG/DL (8-26) Blood Urea Nitrogen 27 MG/DL (7-18) Creatinine 1.32 MG/DL (0.60-1.30) Bedside Creatinine 1.2 MG/DL (0.8-1.3) Estimat Glomerular Filtration 52 ML/MIN (>89) Rate Bedside Glucose 155 MG/DL (60-95) Random Glucose 151 MG/DL (74-106) Lactic Acid Level 2.6 mmol/L (0.4-2.0) Calcium Level 8.7 MG/DL (8.5-10.1) Magnesium Level 2.5 MG/DL (1.5-2.5) Total Bilirubin 1.1 MG/DL (0.2-1.0) Aspartate Amino Transf 106 U/L (15-37) (AST/SGOT) Alanine Aminotransferase 63 U/L (12-78) (ALT/SGPT) Alkaline Phosphatase 86 U/L (45-117) Total Creatine Kinase 130 U/L (39-308) Creatine Kinase MB 3.2 NG/ML (0.5-3.6) Troponin I 0.68 NG/ML (0.02-0.05) B-Type Natriuretic Peptide 782 PG/ML (0-100) Total Protein 6.0 GM/DL (6.4-8.2) Albumin 2.5 GM/DL (3.4-5.0) Last Impressions CT Angiography 01/13/17 1313 Signed Impressions: Service Date/Time: Friday, January 13, 2017 13:52 - CONCLUSION: 1. No evidence of pulmonary embolism. 2. Diffuse alveolar infiltrates most consistent with pulmonary edema. 3. Small bilateral pleural effusions and cardiomegaly. Pan Soria MD Chest X-Ray 01/13/17 1241 Signed Impressions: Service Date/Time: Friday, January 13, 2017 12:42 - CONCLUSION: 1. Development of diffuse interstitial prominence and small effusion suggesting congestive failure. Mega Monzon MD patient reports that he is feeling much better. 80mg of IV lasix given, patient tolerated bipap without any difficultly. Patient does have a white blood cell count 22.4, a lactate of 2.6, patient has been pancultured, IV vancomycin as well as Zosyn ordered for patient. Patient also with a troponin of 0.68, patient with no chest pain at this time. Repeat EKG at 1434 shows normal sinus rhythm at 81 bpm, there is some ST segment depressions on lateral leads. Patient was given an aspirin. CT of the chest shows no PE, patient has diffuse alveolar infiltrates consistent with pulmonary edema. A milligrams of Lasix was administered to patient, patient was placed on BiPAP and tolerating without any difficulty. Plan to admit patient to the hospital under Dr. Franco (Compliance Clerk). I did review case with Dr. Franco who accepts pt to service. Critical Care Narrative Aggregate critical care time was 45 minutes. Time to perform other separately billable procedures was not included in the critical care time. My time did not include minutes spent treating any other patients simultaneously or on activities that did not directly contribute to the patient's treatment. The services I provided to this patient were to treat and/or prevent clinically significant deterioration that could result in: , decompensation, deterioration I provided critical care services requiring my management, as noted below: Chart data review, documentation time, medication orders and management, vital sign assessments/reviewing monitor data, ordering and reviewing lab tests, ordering and interpreting/reviewing x-rays and diagnostic studies, care of the patient and discussion of the patient with the admitting physicians. Diagnosis Primary Impression: Pulmonary edema Qualified Code: J81.0 - Acute pulmonary edema Additional Impressions: Hypoxia Sepsis Qualified Code: A41.9 - Sepsis, due to unspecified organism NSTEMI (non-ST elevated myocardial infarction) Admitting Information Admitting Physician Requests: Admit Linda Burton DO January 13, 2017 13:03
--- NOTE | 2017-01-13 13:04 | RADRPT ---
EXAM DATE/TIME: 01/13/2017 12:42 [facility] COMPARISON: CHEST SINGLE AP, March 26, 2015, 22:17. HIP RIGHT (AP&LAT 2/3VWS) WO AP PELVIS, January 09, 2017, 10:22. INDICATIONS : Shortness of breath. MEDICAL HISTORY : Hiatal hernia. Carcinoma, colon. A-fib. SURGICAL HISTORY : None. ENCOUNTER: Initial ACUITY: 1 day PAIN SCORE: 0/10 LOCATION: Bilateral chest FINDINGS: There is cardiomegaly. There is diffuse interstitial prominence which is new compared to previous edwar ed 03/26/15. There are minimal bilateral effusions. The exam would suggest congestive failure. There is a known 1 cm nodule on the right. This is not appreciated on today's exam. CONCLUSION: 1. Development of diffuse interstitial prominence and small effusion suggesting congestive failure. Mega Monzon MD on January 13, 2017 at 13:01 Board Certified Radiologist. This report was verified electronically.
[2017-01-13 13:08] LABS: AUTOMATED NEUTROPHIL # 19.3 TH/MM3 (1.8-7.7); BASOPHIL # 0.1 TH/MM3 (0-0.2); BASOPHIL % 0.2 % (0.0-2.0); HEMATOCRIT 28.9 % (39.0-51.0); HEMO FLAGS DIFF FINAL; LYMPH % 5.3 % (9.0-44.0); LYMPHOCYTE # 1.2 TH/MM3 (1.0-4.8); MEAN CELL VOLUME 82.5 FL (80.0-100.0); MEAN CORPUSCULAR HEMOGLOBIN 26.8 PG (27.0-34.0); MEAN CORPUSCULAR HGB CONC 32.5 % (32.0-36.0); MONO % 8.6 % (0.0-8.0); NEUT % 85.9 % (16.0-70.0); PLATELET COUNT 303 TH/MM3 (150-450); WHITE BLOOD COUNT 22.4 TH/MM3 (4.0-11.0)
[2017-01-13 13:11] LABS: I-STAT POTASSIUM 5.1 MMOL/L (3.5-4.9)
[2017-01-13 13:13] LABS: APTT (PATIENT) 32.7 SEC (24.3-30.1); PROTHROMBIN TIME - PATIENT 11.5 SEC (9.8-11.6)
[2017-01-13] MEDS ORDERED: FUROSEMIDE 100 MG/10 ML VIAL IV PUSH ONE (13:15)
[2017-01-13 13:31] LABS: ALT (GPT) 63 U/L (12-78); ANION GAP 9 MEQ/L (5-15); AST (GOT) 106 U/L (15-37); BICARBONATE 27.3 MEQ/L (21.0-32.0); BLOOD UREA NITROGEN 27 MG/DL (7-18); CHLORIDE 104 MEQ/L (98-107); GLOMERULAR FILTRATION RATE 52 ML/MIN (>89); MAGNESIUM 2.5 MG/DL (1.5-2.5); POTASSIUM 5.1 MEQ/L (3.5-5.1); SODIUM (NA) 140 MEQ/L (136-145)
[2017-01-13 13:34] LABS: ALKALINE PHOSPHATASE 86 U/L (45-117); CREATINE KINASE 130 U/L (39-308); TOTAL BILIRUBIN ADULT 1.1 MG/DL (0.2-1.0)
[2017-01-13] MEDS ORDERED: PIPERACIL-TAZO 3.375 GM PREMIX 50 ML IV ONE (13:45)
[2017-01-13] MEDS ORDERED: VANCOMYCIN INJ 1,150 MG in SODIUM CHLOR 0.9% 250 ML INJ 250 ML IV ONE (13:45)
[2017-01-13 13:54] LABS: CKMB 3.2 NG/ML (0.5-3.6)
[2017-01-13] MEDS ORDERED: IOHEXOL 350 MG/ML 10 ML VIAL (for RAD DIAG) IV ONE (13:57)
[2017-01-13] MEDS ORDERED: ASPIRIN 81 MG CHEW TAB CHEW ONE (14:00)
--- NOTE | 2017-01-13 14:16 | RADRPT ---
EXAM DATE/TIME: 01/13/2017 13:52 [facility] COMPARISON: No previous studies available for comparison. INDICATIONS : Shortness of breath; post op hip replacement four days ago. IV CONTRAST: 75 cc Omnipaque 350 (iohexol) IV RADIATION DOSE: 23.16 CTDIvol (mGy) MEDICAL HISTORY : Cardiovascular disease. Carcinoma, colon. SURGICAL HISTORY : Hiatal hernia repair. ENCOUNTER: Initial ACUITY: 1 day PAIN SCALE: 3/10 LOCATION: Bilateral chest TECHNIQUE: Volumetric scanning of the chest was performed using a pulmonary embolism protocol MIP images were re constructed. Using automated exposure control and adjustment of the mA and/or kV according to patien t size, radiation dose was kept as low as reasonably achievable to obtain optimal diagnostic quality images. FINDINGS: PULMONARY ARTERIES: No filling defects are seen in the pulmonary arteries through the segmental level. LUNGS: Extensive bilateral ground glass alveolar opacities are noted in both lungs. PLEURAE: There is small bilateral pleural effusions. There are calcified pleural plaques. MEDIASTINUM: There is good visualization of the great vessels of the middle mediastinum. No evidence of mediastin al or hilar adenopathy/mass. The heart size is enlarged. MUSCULOSKELETAL: Within normal limits for patient age. MISCELLANEOUS: The visualized upper abdominal organs demonstrate no acute abnormality. CONCLUSION: 1. No evidence of pulmonary embolism. 2. Diffuse alveolar infiltrates most consistent with pulmonary edema. 3. Small bilateral pleural effusions and cardiomegaly. Pan Soria MD on January 13, 2017 at 14:02 Board Certified Radiologist. This report was verified electronically.
[2017-01-13] MEDS ORDERED: ENOXAPARIN SODIUM 80 MG/0.8 ML SYRINGE SQ ONE (14:45)
[2017-01-13 14:59] LABS: LACTIC ACID GHOST NOT REPORTABLE
[2017-01-13 15:08] LABS: BLOOD, URINE NEG (NEG); GLUCOSE,URINE NEG (NEG); KETONE, URINE NEG (NEG); NITRITE,URINE NEG (NEG); PH, URINE 6.5 (5.0-8.5); URINE COLOR LIGHT-YELLOW (YELLW/STRAW)
[2017-01-13 15:13] LABS: COMMENT (UR) CATH-CULT NOT IND; CULTURE IF INDICATED CATH CULTURE NOT IND
[2017-01-13] MEDS ORDERED: MAGNESIUM OXIDE 400 MG TAB PO PRN (15:45)
[2017-01-13] MEDS ORDERED: CHLORHEXIDINE GLUCONATE 2 % 1 PACK (2 CLOTHS) TOP PRN (15:45)
[2017-01-13] MEDS ORDERED: Vancomycin Consult Pharmacy 1 EA OTHER SCH (15:45)
[2017-01-13] MEDS ORDERED: BISACODYL 10 MG SUPP RECTAL PRN (15:45)
[2017-01-13] MEDS ORDERED: MAGNESIUM SULFATE INJ 2 GM in SODIUM CHLORIDE 0.9% INJ 96 ML IV PRN (15:45)
[2017-01-13] MEDS ORDERED: POTASSIUM PHOSPHATE MONOBASIC 500 MG TAB PO PRN (15:45)
[2017-01-13] MEDS ORDERED: RESP: ALBUTEROL 2.5 MG/IPRATROPIUM 0.5 MG NEB (PRN) INH (15:45)
[2017-01-13] MEDS ORDERED: ACETAMINOPHEN/HYDROcodone 325 MG/5 MG TAB PO PRN (15:45)
[2017-01-13] MEDS ORDERED: ONDANSETRON HCL 4 MG/2 ML VIAL IV PRN (15:45)
[2017-01-13] MEDS ORDERED: POTASSIUM CHLOR 40 MEQ PREMIX 100 ML IV PRN ×2 (15:45)
[2017-01-13] MEDS ORDERED: POTASSIUM CHLORIDE 25 MEQ EFFERVESCENT TAB PO PRN (15:45)
[2017-01-13] MEDS ORDERED: SODIUM PHOSPHATE INJ 30 MMOL in SODIUM CHLOR 0.9% 250 ML INJ 240 ML IV PRN (15:45)
[2017-01-13] MEDS ORDERED: MISCELLANEOUS NURSING INFORMATION XX SCH (15:45)
[2017-01-13] MEDS ORDERED: POTASSIUM PHOSPHATE MONOBASIC 500 MG TAB PO/TUBE PRN (15:45)
[2017-01-13] MEDS ORDERED: POTASSIUM CHLOR 20 MEQ PREMIX 100 ML IV PRN (15:45)
[2017-01-13] MEDS ORDERED: MAGNESIUM SULFATE INJ 4 GM in SODIUM CHLORIDE 0.9% INJ 92 ML IV PRN (15:45)
[2017-01-13] MEDS ORDERED: MAGNESIUM HYDROXIDE SUSP 30 ML CUP PO PRN (15:45)
--- NOTE | 2017-01-13 16:24 | HHI.HP ---
HPI Service Critical Care Medicine Primary Care Physician Unknown Admission Diagnosis Sepsis, Hypoxia, Pulmonary Edema Diagnosis: Travel History International Travel<30 Days: No Contact w/Intl Traveler <30 Da: No Traveled to Known Affected Are: No History of Present Illness Patient is an 86-year-old male that presented to the ED with complaints of shortness of breath. As per EMS, patient had a right hip replacement performed on Sunday by Dr. Linares. Patient reports that he was discharged to home on . Patient reports that he felt fine after his discharge, and reported that last evening he had episodes of nausea, and indigestion so he decided not to take his second dose of ASA. Patients reports that patient had the chills, reports that he was feeling weak and has had a productive cough since last night.. Reports that this morning, he was complaining of shortness of breath. When patient's home nurse arrived, she noted that patients pulse ox was 35% on room air. Patient does not use home O2. EMS were called, fire rescue reports that patient's pulse ox was 50% on room air. Patient was put on a nonrebreather which brought his pulse ox to 80%. When EMS arrived on scene, patient's pulse ox went to the low 90s on a nonrebreather. In the ED ABG was obtained and the patient was noted to have an O2 sat duration of 56% on room air with a PA O2 of 29. The patient was placed on 100% O2 imaging studies were performed showing pulmonary edema, CTA performed negative for pulmonary embolus. The patient was given 80 mg of furosemide IV with good diuresis. Initial troponin was noted to be elevated the patient received Lovenox subcutaneous 1 dose, and an aspirin 81 mg. Patient does have history of hypothyroidism, CHF, A. fib, hypertension, colon cancer, he currently takes a baby aspirin and is not on any anticoagulants. Critical care medicine was consult for management. History PFSH Past Medical History Hx Anticoagulant Therapy: Yes (ASA ) Arthritis: Yes (Right Hip ) Asthma: No Atrial Fibrillation: Yes Autoimmune Disease: No Anxiety: No Depression: No Heart Rhythm Problems: Yes (A-Fib ) Cancer: Yes (COLON 2008 s/p Colon section ) Cardiovascular Problems: Yes (MURMUR, AFIB ) High Cholesterol: No Chemotherapy: Yes Chest Pain: No Congestive Heart Failure: No COPD: No Cerebrovascular Accident: No Diabetes: No Diminished Hearing: No Endocrine: Yes GERD: No Genitourinary: Yes (FREQUENCY AT HS) Hepatitis: No Hiatal Hernia: Yes Immune Disorder: No Kidney Stones: No Musculoskeletal: Yes (OA) Neurologic: Yes Psychiatric: No Reproductive: No Respiratory: No Migraines: No Radiation Therapy: No Renal Failure: No Seizures: No Sickle Cell Disease: No Sleep Apnea: No Thyroid Disease: Yes (hypothyroidism) Ulcer: No Past Surgical History Abdominal Surgery: Yes (COLON RESECTION secondary to colon CA 2007,HERNIA REPAIR) AICD: No Arteriovenous Shunt: No Body Medical Devices: SCREWS RIGHT LEG Cardiac Surgery: No Ear Surgery: No Endocrine Surgery: No Eye Surgery: No Genitourinary Surgery: No Gynecologic Surgery: No Insulin Pump: Yes Joint Replacement: Yes (S/P ORIF right hip ) Oral Surgery: No Pacemaker: No Thoracic Surgery: No Social History Alcohol Use: Yes (ONE DRINK EVERY OTHER DAY) Tobacco Use: No Substance Use: No Allergies-Medications Allergies-Medications (Allergen,Severity, Reaction): Uncoded Allergies: RUBBER (Allergy, Severe, ITCHING, 12/29/16) Reported Meds & Prescriptions Reported Meds & Active Scripts Active Hydrocodone-Acetaminophen 7.5-325 mg Tab 1 Tab PO Q4H PRN Aspirin EC (Aspirin) 81 Mg Tabdr 81 Mg PO BID Reported Calcium (Calcium Carbonate) 1,250 Mg Tab 1,250 Mg PO DAILY 1,250 mg calcium carbonate (500 mg elemental calcium) Multivitamin Adults (Multiple Vitamins W/ Minerals) 1 Tab 1 Tab PO DAILY Amiodarone (Amiodarone HCl) 200 Mg Tab 200 Mg PO DAILY Synthroid (Levothyroxine Sodium) 100 Mcg Tab 100 Mcg PO DAILY take with 112 mcg for toatal sose of 212mcg Synthroid (Levothyroxine Sodium) 112 Mcg Tab 112 Mcg PO DAILY take with 100 mcg for toatal sose of 212mcg ROS Review of Systems General / Constitutional: No: Fever Eyes: No: Visual changes HENT: No: Headaches Cardiovascular: No: Chest Pain or Discomfort Respiratory: Positive: Cough, Shortness of Breath Gastrointestinal: No: Abdominal Pain Genitourinary: No: Dysuria Musculoskeletal: No: Pain Skin: No Rash Neurologic: No: Weakness Psychiatric: No: Depression Endocrine: No: Polydipsia Hematologic/Lymphatic: No: Easy Bruising Physical Exam Vital Signs Vital Signs Date Time Temp Pulse Resp B/P Pulse Ox O2 Delivery O2 Flow Rate FiO2 01/13/17 15:30 77 20 116/54 100 BiPAP 100 01/13/17 14:30 84 20 133/73 99 BiPAP 100 01/13/17 14:22 97 01/13/17 14:05 86 18 152/66 97 Non-Rebreather 15 01/13/17 13:15 79 18 134/68 97 Non-Rebreather 15 01/13/17 12:50 96 Non-Rebreather 15.00 01/13/17 12:48 52 21 01/13/17 12:25 83 18 97 Non-Rebreather 15 01/13/17 12:25 82 18 133/62 97 Non-Rebreather 15 01/13/17 12:25 97 Non-Rebreather 15 01/13/17 12:25 98.6 84 18 133/62 56 Physical Exam GENERAL: Elderly gentleman in moderate respiratory distress, on BiPAP. SKIN: Warm and dry. HEAD: Atraumatic. Normocephalic. EYES: Pupils equal and round. No scleral icterus. No injection or drainage. ENT: No nasal bleeding or discharge. Mucous membranes pink and moist. NECK: Trachea midline. No JVD. CARDIOVASCULAR: Normal rate, regular rhythm. RESPIRATORY: No accessory muscle use. Rales bilateral bases. Breath sounds equal bilaterally. GASTROINTESTINAL: Abdomen soft, non-tender, nondistended. No guarding. MUSCULOSKELETAL: Extremities without clubbing, cyanosis, or edema. No obvious deformities. NEUROLOGICAL: Awake and alert. RASS 0. No gross focal/sensory deficits. Follows commands in all 4 extremities. Laboratory Laboratory Tests Test 01/13/17 01/13/17 01/13/17 12:41 12:50 14:45 Blood Gas Puncture Site RT RADIAL Blood Gas Patient Temperature 98.6 Blood Gas HCO3 25 Blood Gas Base Excess 2.0 Blood Gas Oxygen Saturation 56 Arterial Blood pH 7.48 Arterial Blood Partial 35 Pressure CO2 Arterial Blood Partial 29 Pressure O2 Arterial Blood Oxygen Content 7.1 Arterial Blood 2.0 Carboxyhemoglobin Arterial Blood Methemoglobin 0.6 Blood Gas Hemoglobin 9.0 Oxygen Delivery Device ROOM AIR Blood Gas Inspired Oxygen 21 White Blood Count 22.4 Red Blood Count 3.50 Hemoglobin 9.4 Bedside Hemoglobin 9.5 Hematocrit 28.9 Bedside Hematocrit 28.0 Mean Corpuscular Volume 82.5 Mean Corpuscular Hemoglobin 26.8 Mean Corpuscular Hemoglobin 32.5 Concent Red Cell Distribution Width 14.0 Platelet Count 303 Mean Platelet Volume 7.5 Neutrophils (%) (Auto) 85.9 Lymphocytes (%) (Auto) 5.3 Monocytes (%) (Auto) 8.6 Eosinophils (%) (Auto) 0.0 Basophils (%) (Auto) 0.2 Neutrophils # (Auto) 19.3 Lymphocytes # (Auto) 1.2 Monocytes # (Auto) 1.9 Eosinophils # (Auto) 0.0 Basophils # (Auto) 0.1 CBC Comment DIFF FINAL Differential Comment Prothrombin Time 11.5 Prothromb Time International 1.0 Ratio Activated Partial 32.7 Thromboplast Time Bedside Sodium 138 Sodium Level 140 Bedside Potassium 5.1 Potassium Level 5.1 Bedside Chloride 102 Chloride Level 104 Carbon Dioxide Level 27.3 Anion Gap 9 Bedside Blood Urea Nitrogen 27 Blood Urea Nitrogen 27 Creatinine 1.32 Bedside Creatinine 1.2 Estimat Glomerular Filtration 52 Rate Bedside Glucose 155 Random Glucose 151 Lactic Acid Level 2.6 Calcium Level 8.7 Magnesium Level 2.5 Total Bilirubin 1.1 Aspartate Amino Transf 106 (AST/SGOT) Alanine Aminotransferase 63 (ALT/SGPT) Alkaline Phosphatase 86 Total Creatine Kinase 130 Creatine Kinase MB 3.2 Troponin I 0.68 B-Type Natriuretic Peptide 782 Total Protein 6.0 Albumin 2.5 Urine Color LIGHT-YELLOW Urine Turbidity CLEAR Urine pH 6.5 Urine Specific [place] 1.013 Urine Protein NEG Urine Glucose (UA) NEG Urine Ketones NEG Urine Occult Blood NEG Urine Nitrite NEG Urine Bilirubin NEG Urine Urobilinogen LESS THAN 2.0 Urine Leukocyte Esterase NEG Urine RBC LESS THAN 1 Microscopic Urinalysis Comment CATH-CULT NOT IND Date/Time Procedure Status Source Growth 01/13/17 12:55 Influenza Types A,B Antigen (BRISA) - Final Complete Nasal Aspirate NEGATIVE FOR FLU A AND B ANTIGEN.... 01/13/17 12:55 Aerobic Blood Culture Received Blood Peripheral Pending 01/13/17 12:55 Anaerobic Blood Culture Received Blood Peripheral Pending Result Diagram: 01/13/17 1250 01/13/[address] Angiography 01/13/17 1313 Signed Impressions: Service Date/Time: Friday, January 13, 2017 13:52 - CONCLUSION: 1. No evidence of pulmonary embolism. 2. Diffuse alveolar infiltrates most consistent with pulmonary edema. 3. Small bilateral pleural effusions and cardiomegaly. Pan Soria MD Chest X-Ray 01/13/17 1241 Signed Impressions: Service Date/Time: Friday, January 13, 2017 12:42 - CONCLUSION: 1. Development of diffuse interstitial prominence and small effusion suggesting congestive failure. Mega Monzon MD Septic Shock Reassessment Heart: Regular rate and rhythm Lungs: Crackles Skin: Warm Peripheral Pulses: Bounding Right Radial Bounding Left Radial Bounding Right Dorsalis Pedis Bounding Left Dorsalis Pedis Capillary Refill: Brisk Assessment and Plan Assessment and Plan This is a 86-year-old gentleman status post right total hip arthroplasty recently discharged from the hospital, with noted hypoxemic respiratory failure secondary to john, most likely flash pulmonary edema. The patient has a remote cardiac history of noted A. fib, and CHF currently in sinus rhythm. The patient's lactate level was also noted to be slightly elevated, possibly, secondary to cardiac ischemia or sepsis. Neurologic: GCS 15 Neurochecks per ICU protocol Maintain sleep hygiene Consider melatonin 5 mg for insomnia Respiratory: Acute hypoxemic respiratory failure Pulmonary edema Possible multilobar pneumonia 5/6CTA no evidence of pulmonary embolus. Diffuse alveolar infiltrates consistent with pulmonary edema. Small bilateral pleural effusions. Cardiomegaly Maintain O2 sat greater than 92% Given 80 mg IV Lasix in ED, will wean FiO2 as clinically indicated Continue on BiPAP Bronchodilators every 4 hours when necessary Maintain head of bed 30 Repeat chest x-ray in a.m. Lasix PRN Cardiovascular: NSTEMI History of A. fib CHF Cardiomegaly Given aspirin, Lovenox in ED, patient's home med atorvastatin continued Will continue home med amiodarone Cardiology consulted, appreciate recommendations Obtain echocardiogram Initial troponin 0.68 , Follow up serial troponins BNP 782 Patient's private home health assistant is [facility] Obtain lipid panel Renal: Renal insufficiency Insert Kinney, monitor urine output-diuresed 1200 cc since receiving 80 mg Lasix IV -- Strict I/Os FEN/GI: Hyperkalemia Hiatal hernia Potassium 5.1, creatinine 1.3 Monitor BMP Gentle hydration normal saline 42 cc/hour Protonix 40 mg IV Clear liquid diet tonight Bowel regimen Heme/ID: Sepsis Obtain blood urine and sputum cultures follow-up results Initial Lactate level 2.7, follow up serial lactate level Antibiotics received in the ED included Zosyn, and vancomycin Patient placed on empiric antibiotics cefepime, vancomycin and azithromycin Monitor CBC Endocrine: Hyperglycemia of critical illness Hypothyroidism Obtain TSH and resume home dose Synthroid Glucose monitoring per ICU protocol. Low-dose regimen -- SSI Prophylaxis: GI Prophylaxis Protonix DVT Prophylaxis -- SCDs Lines: Peripheral IVs 2. Central line if indicated Dispo: This patient remains critically ill with one or more organ systems which are or may become a threat to life. I have spent in excess of 45 minutes discontinuously in the care and management of this patient. This time is exclusive of procedures, and includes, but is not limited to, evaluation of the patient, review of the medical record, discussions with family, consultants, nursing staff, or respiratory therapy, and documentation in the medical record. Code Status Full Discussed Condition With Patient, and daughter,ED RN at bedside Ronda Franco MD January 13, 2017 16:24
[2017-01-13] MEDS ORDERED: SODIUM CHLOR 0.9% 1000 ML INJ 1,000 ML IV SCH (17:00)
[2017-01-13] MEDS ORDERED: VANCOMYCIN 1,000 MG/NS 250 ML IV ONE ×2 (17:00)
[2017-01-13] MEDS: AZITHROMYCIN INJ 500 MG in SODIUM CHLOR 0.9% 250 ML INJ 250 ML IV SCH (17:02)
[2017-01-13] MEDS ORDERED: VANCOMYCIN 500 MG/NS 100 ML IV ONE ×2 (18:00)
[2017-01-13] MEDS: CEFEPIME INJ 2,000 MG in SODIUM CHLORIDE 0.9% INJ 100 ML IV SCH (19:19)
[2017-01-13 19:27] LABS: HDL CHOLESTEROL 57.2 MG/DL (40.0-60.0)
[2017-01-13] MEDS: DOCUSATE SODIUM 50 MG/SENNA 8.6 MG TAB PO SCH (20:58)
[2017-01-13] MEDS: SODIUM CHLORIDE 0.9% FLUSH 10 ML FLUSH IV FLUSH SCH (21:00)
--- NOTE | 2017-01-13 21:49 | EKG ---
Date Performed: 01/13/2017 Time Performed: 14:34:28 PTAGE: 86 years EKG: Sinus rhythm WITH FIRST DEGREE AV BLOCK MODERATE ST DEPRESSION ABNORMAL ECG PREVIOUS TRACING : 01/13/2017 12.38 DOCTOR: Wilson Escoto Interpretating Date/Time 01/13/2017 21:46:00
--- NOTE | 2017-01-13 21:50 | EKG ---
Date Performed: 01/13/2017 Time Performed: 12:38:33 PTAGE: 86 years EKG: Sinus rhythm WITH FIRST DEGREE AV BLOCK NONSPECIFIC ST & T-WAVE ABNORMALITY ABNORMAL ECG INTERPRETATION BASED ON A DEFAULT AGE OF 40 YEARS PREVIOUS TRACING : 12/29/2016 09.18 DOCTOR: Wilson Escoto Interpretating Date/Time 01/13/2017 21:47:02
[2017-01-14] VITALS (19 sets, daily range): BP systolic 103–121; BP diastolic 60–64; PULSE 76–110; RESP 20–24; TEMP 97.1–98.4; O2SAT 92–98
[2017-01-14] MEDS: CHLORHEXIDINE GLUCONATE 2 % 1 PACK (2 CLOTHS) TOP SCH (04:00)
--- NOTE | 2017-01-14 04:57 | RADRPT ---
EXAM DATE/TIME: 01/14/2017 03:51 [facility] COMPARISON: CHEST SINGLE AP, January 13, 2017, 12:42. INDICATIONS : Shortness of breath, possible pulmonary disease. MEDICAL HISTORY : Hiatal hernia. Carcinoma, colon. A-Fib SURGICAL HISTORY : None. ENCOUNTER: Subsequent ACUITY: 2 days PAIN SCORE: 0/10 LOCATION: Bilateral chest FINDINGS: A single view of the chest demonstrates cardiomegaly with interstitial edema, slightly improved. Oss eous structures are intact. CONCLUSION: Slight improvement of interstitial edema. Deng Nicholas MD on January 14, 2017 at 4:54 Board Certified Radiologist. This report was verified electronically.
[2017-01-14] MEDS: CEFEPIME INJ 2,000 MG in SODIUM CHLORIDE 0.9% INJ 100 ML IV SCH (05:40)
[2017-01-14 05:54] LABS: AUTOMATED NEUTROPHIL # 14.3 TH/MM3 (1.8-7.7); BASOPHIL # 0.1 TH/MM3 (0-0.2); BASOPHIL % 0.6 % (0.0-2.0); EOSINOPHIL % 0.1 % (0.0-4.0); HEMATOCRIT 25.2 % (39.0-51.0); HEMO FLAGS DIFF FINAL; LYMPH % 9.6 % (9.0-44.0); LYMPHOCYTE # 1.7 TH/MM3 (1.0-4.8); MEAN CELL VOLUME 82.4 FL (80.0-100.0); MEAN CORPUSCULAR HEMOGLOBIN 26.8 PG (27.0-34.0); MEAN CORPUSCULAR HGB CONC 32.5 % (32.0-36.0); MONO % 8.5 % (0.0-8.0); NEUT % 81.2 % (16.0-70.0); PLATELET COUNT 252 TH/MM3 (150-450); RED BLOOD COUNT 3.06 MIL/MM3 (4.50-5.90); WHITE BLOOD COUNT 17.6 TH/MM3 (4.0-11.0)
[2017-01-14 06:22] LABS: MAGNESIUM 2.4 MG/DL (1.5-2.5)
--- NOTE | 2017-01-14 07:54 | HHI.CCPN ---
Subjective Remarks/Hospital Course Patient is an 86-year-old male that presented to the ED with complaints of shortness of breath. As per EMS, patient had a right hip replacement performed on Sunday by Dr. Linares. Patient reports that he was discharged to home on . Patient reports that he felt fine after his discharge, and reported that last evening he had episodes of nausea, and indigestion so he decided not to take his second dose of ASA. Patients reports that patient had the chills, reports that he was feeling weak and has had a productive cough since last night.. Reports that this morning, he was complaining of shortness of breath. When patient's home nurse arrived, she noted that patients pulse ox was 35% on room air. Patient does not use home O2. EMS were called, fire rescue reports that patient's pulse ox was 50% on room air. Patient was put on a nonrebreather which brought his pulse ox to 80%. When EMS arrived on scene, patient's pulse ox went to the low 90s on a nonrebreather. In the ED ABG was obtained and the patient was noted to have an O2 sat duration of 56% on room air with a PA O2 of 29. The patient was placed on 100% O2 imaging studies were performed showing pulmonary edema, CTA performed negative for pulmonary embolus. The patient was given 80 mg of furosemide IV with good diuresis. Initial troponin was noted to be elevated the patient received Lovenox subcutaneous 1 dose, and an aspirin 81 mg. Patient does have history of hypothyroidism, CHF, A. fib, hypertension, colon cancer, he currently takes a baby aspirin and is not on any anticoagulants. Critical care medicine was consult for management. Subjective: 01/14: Tmax 98.0. WBC count trending down. Troponins was noted to be elevated. Atorvastatin added to medication regimen. The patient's chest x-ray revealed slight improvement in his pulmonary edema additional Lasix 40 mg IV given this a.m.. Cardiology consulted 01/13, appreciate recommendations The patient continued on BiPAP at 40% overnight we'll continue to attempt to wean to facemask this a.m.. Patient is tolerating a clear liquid diet. Objective Vital Signs Date Time Temp Pulse Resp B/P Pulse Ox O2 Delivery O2 Flow Rate FiO2 01/14/17 07:31 98 40 01/14/17 03:00 97.1 81 24 107/60 01/13/17 17:30 BiPAP 01/13/17 14:05 15 Intake and Output 01/13/17 01/13/17 01/14/17 08:00 16:00 00:00 Output Total 700 ml 800 ml Balance -700 ml -800 ml Result Diagram: 01/14/17 0541 01/13/17 1250 Other Results Microbiology Date/Time Procedure Status Source Growth 01/13/17 12:55 Influenza Types A,B Antigen (BRISA) - Final Complete Nasal Aspirate NEGATIVE FOR FLU A AND B ANTIGEN.... Laboratory Tests Test 01/13/17 12:41 Blood Gas Puncture Site RT RADIAL Blood Gas Patient Temperature 98.6 Blood Gas HCO3 25 mmol/L (22-26) Blood Gas Base Excess 2.0 mmol/L (-2-2) Blood Gas Oxygen Saturation 56 % (90-100) Arterial Blood pH 7.48 (7.380-7.420) Arterial Blood Partial 35 mmHg (38-42) Pressure CO2 Arterial Blood Partial 29 mmHG Pressure O2 (61-120) Arterial Blood Oxygen Content 7.1 Vol % (12.0-20.0) Arterial Blood 2.0 % (0-4) Carboxyhemoglobin Arterial Blood Methemoglobin 0.6 % (0-2) Blood Gas Hemoglobin 9.0 G/DL (12.0-16.0) Oxygen Delivery Device ROOM AIR Blood Gas Inspired Oxygen 21 % Imaging Last Impressions CT Angiography 01/13/17 1313 Signed Impressions: Service Date/Time: Friday, January 13, 2017 13:52 - CONCLUSION: 1. No evidence of pulmonary embolism. 2. Diffuse alveolar infiltrates most consistent with pulmonary edema. 3. Small bilateral pleural effusions and cardiomegaly. Pan Soria MD Chest X-Ray 01/13/17 1241 Signed Impressions: Service Date/Time: Friday, January 13, 2017 12:42 - CONCLUSION: 1. Development of diffuse interstitial prominence and small effusion suggesting congestive failure. Mega Monzon MD Objective Remarks GENERAL: Elderly well-developed well-nourished gentleman on BiPAP, able to complete sentences without shortness of breath SKIN: Warm and dry. HEAD: Atraumatic. Normocephalic. EYES: Pupils equal and round. No scleral icterus. No injection or drainage. ENT: No nasal bleeding or discharge. Mucous membranes pink and moist. Currently on BiPAP at FiO2 of 40% NECK: Trachea midline. No JVD. CARDIOVASCULAR: Normal rate, irregular rhythm. RESPIRATORY: No accessory muscle use. Clear to auscultation. Breath sounds equal bilaterally. GASTROINTESTINAL: Abdomen soft, non-tender, nondistended. No guarding. MUSCULOSKELETAL: Extremities without clubbing, cyanosis, or edema. No obvious deformities. NEUROLOGICAL: Awake and alert. RASS 0. No gross focal/sensory deficits. Follows commands in all 4 extremities. Urinary Catheter: Yes Kinney insert reason: ICU Pt Getting Diuretics Date of Insertion: January 13, 2017 A/P Assessment and Plan This is a 86-year-old gentleman status post right total hip arthroplasty recently discharged from the hospital, with noted hypoxemic respiratory failure secondary to john, most likely flash pulmonary edema. The patient has a remote cardiac history of noted A. fib, and CHF currently in sinus rhythm. The patient's lactate level was also noted to be slightly elevated, possibly secondary to ischemia or sepsis. Neurologic: GCS 15 Neurochecks per ICU protocol Maintain sleep hygiene Consider melatonin 5 mg for insomnia Respiratory: Acute hypoxemic respiratory failure Pulmonary edema Possible multilobar pneumonia 5/6CTA no evidence of pulmonary embolus. Diffuse alveolar infiltrates consistent with pulmonary edema. Small bilateral pleural effusions. Cardiomegaly Maintain O2 sat greater than 92% Given 80 mg IV Lasix in ED, will wean FiO2 as clinically indicated Continue on BiPAP Bronchodilators every 4 hours when necessary Maintain head of bed 30 CXR-slight improvement in interstitial edema. Lasix 40 mg IV now Cardiovascular: NSTEMI History of A. fib CHF Cardiomegaly Given aspirin, Lovenox in ED 5/ Cardiology consulted, appreciate recommendations Obtain echocardiogram Atorvastatin 20 mg daily home med, and amiodarone continued Initial troponin 0.68->1.44 Continue ASA 81 mg BNP 782 Patient's private load out worker is [facility] At 3 AM the patient was noted to go into atrial fibrillation controlled, intermittently with resolution normal sinus rhythm. Patient continues on home dose amiodarone 200 mg twice a day Renal: Renal insufficiency Insert Kinney, monitor urine output-diuresed 1200 cc since receiving 80 mg Lasix IV -- Strict I/Os FEN/GI: Hyperkalemia Hiatal hernia Potassium 5.1, creatinine 1.3 Monitor BMP Gentle hydration normal saline 42 cc/hour Protonix 40 mg IV Clear liquid diet Bowel regimen Heme/ID: Sepsis Obtain blood urine and sputum cultures follow-up results Initial Lactate level 2.7, follow up serial lactate level possibly 2/2 ischemia or infectious process Antibiotics received in the ED included Zosyn, and vancomycin Patient placed on empiric antibiotics cefepime, vancomycin and azithromycin Monitor CBC Endocrine: Hyperglycemia of critical illness Hypothyroidism Obtain TSH and resume home dose Synthroid Glucose monitoring per ICU protocol. Low-dose regimen -- SSI Prophylaxis: GI Prophylaxis Protonix DVT Prophylaxis -- SCDs Lines: Peripheral IVs 2. Central line if indicated Dispo: Discussed with [employer] OFFICER at bedside This patient remains critically ill with one or more organ systems which are or may become a threat to life. I have spent in excess of 34 minutes discontinuously in the care and management of this patient. This time is exclusive of procedures, and includes, but is not limited to, evaluation of the patient, review of the medical record, discussions with family, consultants, nursing staff, or respiratory therapy, and documentation in the medical record. Physician Ronda Hall MD January 14, 2017 07:53
[2017-01-14] MEDS ORDERED: FUROSEMIDE 40 MG/4 ML VIAL ONE (08:15)
[2017-01-14] MEDS: ATORVASTATIN 20 MG TAB PO SCH (08:25)
[2017-01-14] MEDS: ASPIRIN 81 MG CHEW TAB CHEW SCH (08:25)
[2017-01-14] MEDS: DOCUSATE SODIUM 50 MG/SENNA 8.6 MG TAB PO SCH ×2 (08:26→21:27)
[2017-01-14] MEDS: SODIUM CHLORIDE 0.9% FLUSH 10 ML FLUSH IV FLUSH SCH ×2 (08:26→21:27)
[2017-01-14] MEDS: PANTOPRAZOLE SODIUM 40 MG VIAL IV SCH (08:26)
--- NOTE | 2017-01-14 08:45 | PD.CONS ---
HPI Service Orthopedic Surgeons Consult Requested By Primary Care Physician Unknown Admission Diagnosis Sepsis, Hypoxia, Pulmonary Edema Diagnoses: (1) Status post total hip replacement, right Diagnosis: Principal Chief Complaint: Postop Right total hip History of Present Illness This 86 year old man had a right total hip done by the undersigned last 01/08/2017. He did well in the hospital and was discharged home with [facility]. He was readmitted apparently with CHF, atrial fibrillation and oxygen desaturation. Past Family Social History Allergies: Uncoded Allergies: RUBBER (Allergy, Severe, ITCHING, 12/29/16) Active Ordered Medications Current Medications Medications (Trade) Dose Ordered Sig/Mookie Route Start Time Stop Time Status Last Admin (NS Flush) 2 ml UNSCH PRN IV FLUSH 01/13/17 15:45 (NS Flush) 2 ml BID IV FLUSH 01/13/17 21:00 01/14/17 08:26 (Tylenol) 650 mg Q6H PRN PO 01/13/17 15:45 ([place] 5-325 Mg) 1 tab Q4H PRN PO 01/13/17 15:45 (Protonix Inj) 40 mg DAILY IV 01/14/17 09:00 01/14/17 08:26 (Zofran Inj) 4 mg Q6H PRN IV 01/13/17 15:45 (Gertrude-Colace) 2 tab BID PO 01/13/17 21:00 01/14/17 08:26 (Dulcolax Supp) 10 mg DAILY PRN RECTAL 01/13/17 15:45 (Milk Of Magnesia Liq) 30 ml Q12H PRN PO 01/13/17 15:45 Miscellaneous Information 1 Q361D XX 01/13/17 15:45 (Chlorhexidine 2% Cloth) 3 pack Taper DAILY@04 TOP 01/14/17 04:00 01/10/18 03:59 Chlorhexidine Gluconate 3 pack 3 pack UNSCH PRN TOP 01/13/17 15:45 Potassium Chloride 100 ml @ 50 mls/hr Q2H PRN IV 01/13/17 15:45 (KCl 20 Meq Premix Inj) 100 ml @ 50 mls/hr Q2H PRN IV 01/13/17 15:45 Potassium Bicarb/ Potassium Chloride 50 meq 50 meq UNSCH PRN PO 01/13/17 15:45 Potassium Chloride 100 ml @ 25 mls/hr UNSCH PRN IV 01/13/17 15:45 Potassium Chloride 100 ml @ 50 mls/hr Q2H PRN IV 01/13/17 15:45 (Magnesium Sulfate Inj/NS Inj) 100 ml @ 50 mls/hr UNSCH PRN IV 01/13/17 15:45 Magnesium Oxide 800 mg 800 mg UNSCH PRN PO 01/13/17 15:45 (Magnesium Sulfate Inj/NS Inj) 100 ml @ 50 mls/hr UNSCH PRN IV 01/13/17 15:45 Potassium Phosphate 2000 mg 2,000 mg Q4H PRN PO 01/13/17 15:45 (Sodium Phosphate Inj/NS 250 ml Inj) 250 ml @ 42 mls/hr UNSCH PRN IV 01/13/17 15:45 Potassium Phosphate 2000 mg 2,000 mg UNSCH PRN PO/TUBE 01/13/17 15:45 Cefepime HCl 2000 mg/Sodium Chloride 100 ml @ 200 mls/hr Q12H IV 01/13/17 18:00 01/14/17 05:40 Azithromycin 500 mg/Sodium Chloride 250 ml @ 250 mls/hr Q24H IV 01/13/17 17:00 01/13/17 17:02 Pharmacy Profile Note 0 ml @ 0 mls/hr UNSCH OTHER 01/13/17 15:45 (NS 1000 ml Inj) 1,000 ml @ 42 mls/hr [id number] IV 01/13/17 17:00 01/13/17 17:02 (Lipitor) 20 mg DAILY PO 01/14/17 09:00 01/14/17 08:25 (Aspirin Chew) 81 mg DAILY CHEW 01/14/17 09:00 01/14/17 08:25 (Lasix Inj) 40 mg NOW ONCE IV PUSH 01/14/17 09:00 01/14/17 09:01 Reported Meds & Active Scripts Active Hydrocodone-Acetaminophen 7.5-325 mg Tab 1 Tab PO Q4H PRN Aspirin EC (Aspirin) 81 Mg Tabdr 81 Mg PO BID Reported Calcium (Calcium Carbonate) 1,250 Mg Tab 1,250 Mg PO DAILY 1,250 mg calcium carbonate (500 mg elemental calcium) Multivitamin Adults (Multiple Vitamins W/ Minerals) 1 Tab 1 Tab PO DAILY Amiodarone (Amiodarone HCl) 200 Mg Tab 200 Mg PO DAILY Synthroid (Levothyroxine Sodium) 100 Mcg Tab 100 Mcg PO DAILY take with 112 mcg for toatal sose of 212mcg Synthroid (Levothyroxine Sodium) 112 Mcg Tab 112 Mcg PO DAILY take with 100 mcg for toatal sose of 212mcg Physical Exam Vital Signs Vital Signs Date Time Temp Pulse Resp B/P Pulse Ox O2 Delivery O2 Flow Rate FiO2 01/14/17 07:31 98 40 01/14/17 03:34 97 40 01/14/17 03:00 97.1 81 24 107/60 97 01/14/17 03:00 84 01/14/17 00:05 97 35 01/13/17 23:00 68 01/13/17 23:00 97.8 72 20 120/66 20 01/13/17 22:05 94 40 01/13/17 19:00 71 01/13/17 19:00 98.0 71 26 112/60 97 01/13/17 18:12 78 01/13/17 18:12 97.4 78 20 126/56 93 01/13/17 18:10 95 50 01/13/17 17:30 74 20 119/67 94 BiPAP 40 01/13/17 17:02 93 40 01/13/17 16:30 76 20 116/64 93 BiPAP 40 01/13/17 15:30 77 20 116/54 100 BiPAP 100 01/13/17 14:30 84 20 133/73 99 BiPAP 100 01/13/17 14:22 97 01/13/17 14:05 86 18 152/66 97 Non-Rebreather 15 01/13/17 13:15 79 18 134/68 97 Non-Rebreather 15 01/13/17 12:50 96 Non-Rebreather 15.00 01/13/17 12:48 52 21 01/13/17 12:25 83 18 97 Non-Rebreather 15 01/13/17 12:25 82 18 133/62 97 Non-Rebreather 15 01/13/17 12:25 97 Non-Rebreather 15 01/13/17 12:25 98.6 84 18 133/62 56 Physical Exam The right hip wound is clean and dry. There is no erythema, induration or drainage. The neurovascular status is intact. There is no edema. Laboratory Laboratory Tests Test 01/13/17 01/13/17 01/13/17 01/13/17 12:41 12:50 14:45 16:20 Blood Gas Puncture Site RT RADIAL Blood Gas Patient Temperature 98.6 Blood Gas HCO3 25 Blood Gas Base Excess 2.0 Blood Gas Oxygen Saturation 56 Arterial Blood pH 7.48 Arterial Blood Partial 35 Pressure CO2 Arterial Blood Partial 29 Pressure O2 Arterial Blood Oxygen Content 7.1 Arterial Blood 2.0 Carboxyhemoglobin Arterial Blood Methemoglobin 0.6 Blood Gas Hemoglobin 9.0 Oxygen Delivery Device ROOM AIR Blood Gas Inspired Oxygen 21 White Blood Count 22.4 Red Blood Count 3.50 Hemoglobin 9.4 Bedside Hemoglobin 9.5 Hematocrit 28.9 Bedside Hematocrit 28.0 Mean Corpuscular Volume 82.5 Mean Corpuscular Hemoglobin 26.8 Mean Corpuscular Hemoglobin 32.5 Concent Red Cell Distribution Width 14.0 Platelet Count 303 Mean Platelet Volume 7.5 Neutrophils (%) (Auto) 85.9 Lymphocytes (%) (Auto) 5.3 Monocytes (%) (Auto) 8.6 Eosinophils (%) (Auto) 0.0 Basophils (%) (Auto) 0.2 Neutrophils # (Auto) 19.3 Lymphocytes # (Auto) 1.2 Monocytes # (Auto) 1.9 Eosinophils # (Auto) 0.0 Basophils # (Auto) 0.1 CBC Comment DIFF FINAL Differential Comment Prothrombin Time 11.5 Prothromb Time International 1.0 Ratio Activated Partial 32.7 Thromboplast Time Bedside Sodium 138 Sodium Level 140 Bedside Potassium 5.1 Potassium Level 5.1 Bedside Chloride 102 Chloride Level 104 Carbon Dioxide Level 27.3 Anion Gap 9 Bedside Blood Urea Nitrogen 27 Blood Urea Nitrogen 27 Creatinine 1.32 Bedside Creatinine 1.2 Estimat Glomerular Filtration 52 Rate Bedside Glucose 155 Random Glucose 151 Lactic Acid Level 2.6 1.9 Calcium Level 8.7 Phosphorus Level 2.9 Magnesium Level 2.5 Total Bilirubin 1.1 Aspartate Amino Transf 106 (AST/SGOT) Alanine Aminotransferase 63 (ALT/SGPT) Alkaline Phosphatase 86 Total Creatine Kinase 130 Creatine Kinase MB 3.2 Troponin I 0.68 B-Type Natriuretic Peptide 782 Total Protein 6.0 Albumin 2.5 Thyroid Stimulating Hormone 1.330 3rd Gen Urine Color LIGHT-YELLOW Urine Turbidity CLEAR Urine pH 6.5 Urine Specific [place] 1.013 Urine Protein NEG Urine Glucose (UA) NEG Urine Ketones NEG Urine Occult Blood NEG Urine Nitrite NEG Urine Bilirubin NEG Urine Urobilinogen LESS THAN 2.0 Urine Leukocyte Esterase NEG Urine RBC LESS THAN 1 Microscopic Urinalysis Comment CATH-CULT NOT IND Test 01/13/17 01/13/17 01/14/17 01/14/17 18:45 20:29 01:12 05:41 Lactic Acid Level 1.6 1.1 Troponin I 1.44 Triglycerides Level 78 Cholesterol Level 110 LDL Cholesterol 37 HDL Cholesterol 57.2 Cholesterol/HDL Ratio 1.92 Nasal Screen MRSA (PCR) MRSA NOT DETECTED White Blood Count 17.6 Red Blood Count 3.06 Hemoglobin 8.2 Hematocrit 25.2 Mean Corpuscular Volume 82.4 Mean Corpuscular Hemoglobin 26.8 Mean Corpuscular Hemoglobin 32.5 Concent Red Cell Distribution Width 14.0 Platelet Count 252 Mean Platelet Volume 7.2 Neutrophils (%) (Auto) 81.2 Lymphocytes (%) (Auto) 9.6 Monocytes (%) (Auto) 8.5 Eosinophils (%) (Auto) 0.1 Basophils (%) (Auto) 0.6 Neutrophils # (Auto) 14.3 Lymphocytes # (Auto) 1.7 Monocytes # (Auto) 1.5 Eosinophils # (Auto) 0.0 Basophils # (Auto) 0.1 CBC Comment DIFF FINAL Differential Comment Phosphorus Level 2.9 Magnesium Level 2.4 Date/Time Procedure Status Source Growth 01/13/17 18:24 Urine Culture Received Urine Catheterized Urine Pending 01/13/17 12:55 Influenza Types A,B Antigen (BRISA) - Final Complete Nasal Aspirate NEGATIVE FOR FLU A AND B ANTIGEN.... 01/13/17 12:55 Aerobic Blood Culture Received Blood Peripheral Pending 01/13/17 12:55 Anaerobic Blood Culture Received Blood Peripheral Pending Result Diagram: 01/14/17 0541 01/13/17 1250 Assessment & Plan Ortho Post Op Day #: 6 Problem List: (1) Status post total hip replacement, right Plan: Continue postop care . Resume PT/OT when allowed by admitting physician. Assessment and Plan Orthopaedically stable. I have added wound care and posterior hip orders. PT/OT orders are added for when he is allowed to resume therapy. Tea Linares MD (Charles) January 14, 2017 08:44
[2017-01-14 08:53] LABS: BLOOD UREA NITROGEN 27 MG/DL (7-18); GLOMERULAR FILTRATION RATE 52 ML/MIN (>89)
[2017-01-14 08:54] LABS: ALKALINE PHOSPHATASE 80 U/L (45-117); ALT (GPT) 49 U/L (12-78); ANION GAP 10 MEQ/L (5-15); AST (GOT) 63 U/L (15-37); BICARBONATE 29.4 MEQ/L (21.0-32.0); CHLORIDE 105 MEQ/L (98-107); INDIRECT BILIRUBIN 0.5 MG/DL (0.0-0.8); SODIUM (NA) 144 MEQ/L (136-145); TOTAL BILIRUBIN ADULT 0.8 MG/DL (0.2-1.0)
[2017-01-14] MEDS ORDERED: FUROSEMIDE 40 MG/4 ML VIAL IV PUSH ONE (09:00)
--- NOTE | 2017-01-14 10:35 | EKG ---
Date Performed: 01/14/2017 Time Performed: 07:07:02 PTAGE: 86 years EKG: Atrial flutter Extensive ST-T changes suggest myocardial injury/ischemia Abnormal ECG PREVIOUS TRACING : 01/13/2017 14.34 DOCTOR: Wilson Escoto Interpretating Date/Time 01/14/2017 10:33:53
--- NOTE | 2017-01-14 12:24 | OTSOAPIP ---
TIME SESSION COMPLETED: 1200 PATIENT ON REBREATHER WITH DECREASING SATURATION WILL REATTEMPT IN AM. Therapist: Lizette Troncoso OTR/L Signature on file
--- NOTE | 2017-01-14 17:22 | EC ---
Study Study Date:01/14/2017 STUDY CONCLUSIONS SUMMARY - Left ventricle: The cavity size was normal. Wall thickness was normal. Systolic function was normal. The estimated ejection fraction was in the range of 50% to 55%. Wall motion was normal; there were no regional wall motion abnormalities. Doppler parameters are consistent with abnormal left ventricular relaxation (grade 1 diastolic dysfunction). - Aortic valve: Transvalvular velocity was increased. There was mild stenosis. - Mitral valve: Mild regurgitation. - Tricuspid valve: Mild regurgitation. - Pulmonary arteries: PA peak pressure: 54mm Hg (S). If LV function is below 40, please consider prescribing an ACEI or ARB or document rationale for non-use. PROCEDURE DATA STUDY STATUS: Elective. Procedure: Transthoracic echocardiography. Image quality was good. Scanning was performed from the parasternal, apical, and subcostal acoustic windows. Study completion: The patient tolerated the procedure well. Transthoracic echocardiography. M-mode, complete 2D, complete spectral Doppler, and color Doppler. Height: Height: 75in. Weight: Weight: 170.6lb. Body mass index: BMI: 21.4kg/m^2. Body surface area: BSA: 2.05m^2. Patient status: Inpatient. CARDIAC ANATOMY LEFT VENTRICLE: The cavity size was normal. Wall thickness was normal. Systolic function was normal. The estimated ejection fraction was in the range of 50% to 55%. Wall motion was normal; there were no regional wall motion abnormalities. Doppler parameters are consistent with abnormal left ventricular relaxation (grade 1 diastolic dysfunction). AORTIC VALVE: Trileaflet; moderately thickened, moderately calcified leaflets. Doppler: Transvalvular velocity was increased. There was mild stenosis. No regurgitation. Indexed valve area: 0.35cm^2/m^2 (Vmax). Mean gradient: 32mm Hg (S). Peak gradient: 57mm Hg (S). AORTA: Aortic root: The aortic root was normal in size. MITRAL VALVE: Structurally normal valve. Doppler: Transvalvular velocity was within the normal range. There was no evidence for stenosis. Mild regurgitation. Peak gradient: 2mm Hg (D). LEFT ATRIUM: The atrium was normal in size. RIGHT VENTRICLE: The cavity size was normal. Wall thickness was normal. PULMONIC VALVE: Doppler: Transvalvular velocity was within the normal range. There was no evidence for stenosis. Trace regurgitation. TRICUSPID VALVE: Structurally normal valve. Doppler: Transvalvular velocity was within the normal range. Mild regurgitation. PULMONARY ARTERY: The main pulmonary artery was normal-sized. Systolic pressure was within the normal range. RIGHT ATRIUM: The atrium was normal in size. PERICARDIUM: There was no pericardial effusion. SYSTEMIC VEINS: Inferior vena cava: The vessel was normal in size. Patient weight: 170.6lb _Ejection fraction:_ 65-75% _Fractional shortening:_ 32% up to 5Kg 5-11.5Kg 11.6-22.9Kg 23-45Kg 45-57Kg Aortic Root 7-13 <17 13-22 17-27 17-27 LA diam 6-13 <23 24-38 33-47 37-40 RVID 10-17 7-15 7-15 7-18 8-17 LVIDd 12-22 <32 24-38 33-47 37-40 LVPW 2-4 3-6 5-7 6-8 7-8 IVS 2-4 3-6 5-7 6-8 7-8 BASIC MEASUREMENTS ADULT NORMAL Left ventricle LV internal dimension, ED, chordal *38.3 mm 43-52 level, PLAX LV internal dimension, ES, chordal 30.9 mm 23-38 level, PLAX Fractional shortening, chordal level, *19 % >29 PLAX LV posterior wall thickness, ED 13.1 mm IVS/LVPW ratio, ED 1 <1.3 Ventricular septum Septal thickness, ED 13.1 mm Aorta Root diameter, ED 31 mm Left atrium Anterior-posterior dimension 30 mm Anterior-posterior dimension index 1.46 cm/m^2 <2.2 DOPPLER MEASUREMENTS ADULT NORMAL Main pulmonary artery Pressure, S *54 mm Hg =30 Aortic valve Peak velocity, S 378 cm/s Mean velocity, S 259 cm/s VTI, S 85.4 cm Mean gradient, S 32 mm Hg Peak gradient, S 57 mm Hg Valve area index, Vmax 0.35 cm^2/m^2 Mitral valve Peak E-wave velocity 76.5 cm/s Peak A-wave velocity 98.2 cm/s Deceleration time 187 ms 150-230 Peak gradient, D 2 mm Hg Peak E/A ratio 0.8 Tricuspid valve Regurgitant peak velocity 336 cm/s Peak RV-RA gradient, S 45 mm Hg Maximal regurgitant velocity 336 cm/s Systemic veins Estimated CVP 10 mm Hg Right ventricle RV pressure, S *55 mm Hg <30 Pulmonic valve Peak velocity, S 54.1 cm/s LEGEND: Mean values are shown as u=mean value. Asterisk (*) rodriguez values outside specified normal range. Prepared and signed by Wilson Escoto [id number]
[2017-01-14] MEDS: AZITHROMYCIN INJ 500 MG in SODIUM CHLOR 0.9% 250 ML INJ 250 ML IV SCH (17:33)
[2017-01-15] VITALS (32 sets, daily range): BP systolic 102–129; BP diastolic 56–71; PULSE 20–110; RESP 18–24; TEMP 98–99.9; O2SAT 92–98
[2017-01-15] MEDS: CHLORHEXIDINE GLUCONATE 2 % 1 PACK (2 CLOTHS) TOP SCH (03:56)
[2017-01-15] MEDS: CEFEPIME INJ 2,000 MG in SODIUM CHLORIDE 0.9% INJ 100 ML IV SCH ×3 (06:03→17:47)
--- NOTE | 2017-01-15 07:12 | PD.ORT.PN ---
Subjective Post Op Day #: 7 Subjective Remarks He has not been OOB because of hypoxia. Objective Vitals Vital Signs Date Time Temp Pulse Resp B/P Pulse Ox O2 Delivery O2 Flow Rate FiO2 01/15/17 05:00 108 01/15/17 04:20 94 60 01/15/17 04:00 98.5 108 24 108/62 94 01/15/17 04:00 110 01/15/17 03:00 108 01/15/17 02:00 106 01/15/17 01:00 106 01/15/17 00:23 95 60 01/15/17 00:00 99.2 108 24 108/60 94 01/15/17 00:00 108 01/14/17 23:00 80 01/14/17 22:00 82 01/14/17 21:30 93 60 01/14/17 21:00 96 01/14/17 20:00 86 01/14/17 20:00 98.0 85 22 103/60 93 01/14/17 19:40 97 Partial Rebreather 15.00 01/14/17 19:00 86 01/14/17 17:28 110 01/14/17 16:00 98.3 95 20 108/64 92 01/14/17 12:00 98.4 82 20 121/62 97 01/14/17 11:44 93 Partial Rebreather 13.00 01/14/17 11:00 88 01/14/17 07:31 98 40 01/14/17 07:15 98.0 94 21 108/64 98 I/O 01/14/17 01/14/17 01/14/17 01/15/17 01/15/17 01/15/17 07:00 15:00 23:00 07:00 15:00 23:00 Intake Total 944 ml 1181 ml 780 ml Output Total 550 ml 2100 ml 400 ml Balance 394 ml -919 ml 380 ml Intake Oral 240 ml 680 ml 300 ml IV Total 704 ml 501 ml 480 ml Output Urine Total 550 ml 2100 ml 400 ml # Bowel Movements 0 0 Result Diagram: 01/14/17 0541 01/14/17 0729 Objective Remarks He is resting comfortably, supine in bed. The neurovascular status is intact. Assessment & Plan Ortho Post Op Day #: 7 Problem List: (1) Status post total hip replacement, right Plan: Continue postop care . Resume PT/OT when allowed by admitting physician. Assessment and Plan Orthopaedically stable. PT/OT when he is allowed to resume therapy. Tea Linares MD (Charles) January 15, 2017 07:12
--- NOTE | 2017-01-15 08:12 | RADRPT ---
EXAM DATE/TIME: 01/15/2017 07:54 [facility] COMPARISON: CHEST SINGLE AP, January 14, 2017, 3:51. INDICATIONS : Shortness of breath. MEDICAL HISTORY : Hiatal hernia. Carcinoma, colon. A-Fib. SURGICAL HISTORY : None. ENCOUNTER: Subsequent ACUITY: 3 days PAIN SCORE: 0/10 LOCATION: Bilateral chest FINDINGS: A single view of the chest demonstrates diffuse bilateral airspace disease with more confluence densi ty in the lower lobes. Heart mildly enlarged.. Osseous structures are intact. CONCLUSION: Cardiomegaly with diffuse bilateral pulmonary opacities likely pulmonary edema CHF. Deng Nicholas MD on January 15, 2017 at 8:08 Board Certified Radiologist. This report was verified electronically.
[2017-01-15] MEDS ORDERED: FUROSEMIDE 40 MG/4 ML VIAL IV PUSH ONE ×3 (08:45→20:45)
--- NOTE | 2017-01-15 09:08 | HHI.CCPN ---
Subjective Remarks/Hospital Course Patient is an 86-year-old male that presented to the ED with complaints of shortness of breath. As per EMS, patient had a right hip replacement performed on Sunday by Dr. Linares. Patient reports that he was discharged to home on . Patient reports that he felt fine after his discharge, and reported that last evening he had episodes of nausea, and indigestion so he decided not to take his second dose of ASA. Patients reports that patient had the chills, reports that he was feeling weak and has had a productive cough since last night.. Reports that this morning, he was complaining of shortness of breath. When patient's home nurse arrived, she noted that patients pulse ox was 35% on room air. Patient does not use home O2. EMS were called, fire rescue reports that patient's pulse ox was 50% on room air. Patient was put on a nonrebreather which brought his pulse ox to 80%. When EMS arrived on scene, patient's pulse ox went to the low 90s on a nonrebreather. In the ED ABG was obtained and the patient was noted to have an O2 sat duration of 56% on room air with a PA O2 of 29. The patient was placed on 100% O2 imaging studies were performed showing pulmonary edema, CTA performed negative for pulmonary embolus. The patient was given 80 mg of furosemide IV with good diuresis. Initial troponin was noted to be elevated the patient received Lovenox subcutaneous 1 dose, and an aspirin 81 mg. Patient does have history of hypothyroidism, CHF, A. fib, hypertension, colon cancer, he currently takes a baby aspirin and is not on any anticoagulants. Critical care medicine was consult for management. Subjective: 01/14: Tmax 98.0. WBC count trending down. Troponins was noted to be elevated. Atorvastatin added to medication regimen. The patient's chest x-ray revealed slight improvement in his pulmonary edema additional Lasix 40 mg IV given this a.m.. Cardiology consulted 01/13, appreciate recommendations The patient continued on BiPAP at 40% overnight we'll continue to attempt to wean to facemask this a.m.. Patient is tolerating a clear liquid diet. 01/15: Tmax 99.2. Morning labs pending. Patient was noted to have an episode of nausea last evening, given Zofran with resolution of symptoms. Concern for cardiac ischemia, EKG ordered this a.m.. Troponin level 1.[address] Linares and obtained clearance to begin heparin infusion.Echo showed elevated Transvalvular gradient w/ mean of 32, and Peak of 57. Patient given Lasix, this a.m.. Objective Vital Signs Date Time Temp Pulse Resp B/P Pulse Ox O2 Delivery O2 Flow Rate FiO2 01/15/17 07:00 78 01/15/17 04:20 94 60 01/15/17 04:00 98.5 24 108/62 01/14/17 19:40 Partial Rebreather 15.00 Intake and Output 01/14/17 01/14/17 01/15/17 08:00 16:00 00:00 Intake Total 944 ml 1181 ml Output Total 550 ml 2100 ml Balance 394 ml -919 ml Result Diagram: 01/14/17 0541 01/14/17 0729 Other Results Microbiology Date/Time Procedure Status Source Growth 01/13/17 12:55 Influenza Types A,B Antigen (BRISA) - Final Complete Nasal Aspirate NEGATIVE FOR FLU A AND B ANTIGEN.... Imaging Last Impressions Chest X-Ray 01/15/17 0000 Signed Impressions: Service Date/Time: Sunday, January 15, 2017 07:54 - CONCLUSION: Cardiomegaly with diffuse bilateral pulmonary opacities likely pulmonary edema CHF. Deng Nicholas MD CT Angiography 01/13/17 1313 Signed Impressions: Service Date/Time: Friday, January 13, 2017 13:52 - CONCLUSION: 1. No evidence of pulmonary embolism. 2. Diffuse alveolar infiltrates most consistent with pulmonary edema. 3. Small bilateral pleural effusions and cardiomegaly. Pan Soria MD Last Impressions CT Angiography 01/13/17 1313 Signed Impressions: Service Date/Time: Friday, January 13, 2017 13:52 - CONCLUSION: 1. No evidence of pulmonary embolism. 2. Diffuse alveolar infiltrates most consistent with pulmonary edema. 3. Small bilateral pleural effusions and cardiomegaly. Pan Soria MD Chest X-Ray 01/13/17 1241 Signed Impressions: Service Date/Time: Friday, January 13, 2017 12:42 - CONCLUSION: 1. Development of diffuse interstitial prominence and small effusion suggesting congestive failure. Mega Monzon MD Objective Remarks GENERAL: Elderly gentleman in on BiPAP, no respiratory distress noted SKIN: Warm and dry. HEAD: Atraumatic. Normocephalic. EYES: Pupils equal and round. No scleral icterus. No injection or drainage. ENT: No nasal bleeding or discharge. Mucous membranes pink and moist. NECK: Trachea midline. No JVD. CARDIOVASCULAR: Normal rate, regular rhythm. RESPIRATORY: No accessory muscle use. Fine crackles noted in bases. Breath sounds equal bilaterally. GASTROINTESTINAL: Abdomen soft, non-tender, nondistended. No guarding. MUSCULOSKELETAL: Extremities without clubbing, cyanosis, or edema. No obvious deformities. NEUROLOGICAL: Awake and alert. RASS 0. No gross focal/sensory deficits. Follows commands in all 4 extremities. Date of Insertion: January 13, 2017 A/P Assessment and Plan This is a 86-year-old gentleman status post right total hip arthroplasty Mon,01/08 recently discharged from the hospital, with noted hypoxemic respiratory failure secondary to john, most likely flash pulmonary edema. The patient has a remote cardiac history of noted A. fib, and CHF currently in sinus rhythm. The patient's lactate level was also noted to be slightly elevated, possibly secondary to ischemia or sepsis. Neurologic: GCS 15 Neurochecks per ICU protocol Maintain sleep hygiene Consider melatonin 5 mg for insomnia Respiratory: Acute hypoxemic respiratory failure Pulmonary edema 5/6CTA no evidence of pulmonary embolus. Diffuse alveolar infiltrates consistent with pulmonary edema. Small bilateral pleural effusions. Cardiomegaly Maintain O2 sat greater than 92% Given 80 mg IV Lasix in ED, will wean FiO2 as clinically indicated Continue on BiPAP wean as tolerated Bronchodilators every 4 hours when necessary Maintain head of bed 30 CXR-slight improvement in interstitial edema. Lasix 40 mg IV. No noted pulmonary opacities, less likely a pneumonia process Cardiovascular: NSTEMI History of A. 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 Patient continues on home dose amiodarone 200 mg twice a day Heparin infusion initiated after receiving clearance from Orthopedic surgeon, Dr. Linares Renal: Renal insufficiency Insert Kinney, monitor urine output -- Strict I/Os FEN/GI: Hyperkalemia-resolved Hiatal hernia Lasix 40 mg IV Monitor BMP Hep-Lock IV Protonix 40 mg IV Clear liquid diet Bowel regimen Heme/ID: Lactic acidosis F/U blood urine and sputum cultures -NGTD Initial Lactate level 2.7, follow up serial lactate level possibly 2/2 ischemia or infectious process Antibiotics received in the ED included Zosyn, and vancomycin Patient placed on empiric antibiotics cefepime, vancomycin and azithromycin on - will de-escalate Monitor CBC Endocrine: Hyperglycemia of critical illness Hypothyroidism Obtain TSH and resume home dose Synthroid Glucose monitoring per ICU protocol. Low-dose regimen -- SSI Prophylaxis: GI Prophylaxis Protonix DVT Prophylaxis -- SCDs Lines: Peripheral IVs 2. Central line if indicated Dispo: Discussed with RN at bedside, and Dr. Linares Called patient's Biometrics Technician in [place] Dr. Velazquez and updated him on the patient's medical status. This patient remains critically ill with one or more organ systems which are or may become a threat to life. I have spent in excess of 45 minutes discontinuously in the care and management of this patient. This time is exclusive of procedures, and includes, but is not limited to, evaluation of the patient, review of the medical record, discussions with family, consultants, nursing staff, or respiratory therapy, and documentation in the medical record. Physician Ronda Hall MD January 15, 2017 09:08
[2017-01-15 09:11] LABS: AUTOMATED NEUTROPHIL # 14.5 TH/MM3 (1.8-7.7); HEMATOCRIT 25.2 % (39.0-51.0); HEMO FLAGS DIFF FINAL; LYMPH % 5.7 % (9.0-44.0); MEAN CELL VOLUME 82.7 FL (80.0-100.0); MEAN CORPUSCULAR HEMOGLOBIN 27.3 PG (27.0-34.0); MONO % 8.8 % (0.0-8.0); NEUT % 85.5 % (16.0-70.0); PLATELET COUNT 268 TH/MM3 (150-450); RED BLOOD COUNT 3.05 MIL/MM3 (4.50-5.90); RED CELL DISTRIBUTION WIDTH 14.2 % (11.6-17.2)
[2017-01-15 09:21] LABS: APTT (PATIENT) 32.4 SEC (24.3-30.1); INTERNATIONAL NORMALIZED RATIO 1.1 RATIO; PROTHROMBIN TIME - PATIENT 11.7 SEC (9.8-11.6)
[2017-01-15] MEDS: ATORVASTATIN 20 MG TAB PO SCH (09:25)
[2017-01-15] MEDS: DOCUSATE SODIUM 50 MG/SENNA 8.6 MG TAB PO SCH ×2 (09:25→21:04)
[2017-01-15] MEDS: PANTOPRAZOLE SODIUM 40 MG VIAL IV SCH (09:25)
[2017-01-15 09:26] LABS: BICARBONATE 31.9 MEQ/L (21.0-32.0); MAGNESIUM 2.4 MG/DL (1.5-2.5); POTASSIUM 4.1 MEQ/L (3.5-5.1)
[2017-01-15] MEDS: ASPIRIN 81 MG CHEW TAB CHEW SCH (09:26)
[2017-01-15] MEDS: SODIUM CHLORIDE 0.9% FLUSH 10 ML FLUSH IV FLUSH SCH ×2 (09:26→21:02)
[2017-01-15] MEDS: HEPARIN-D5W INJ 250 ML IV SCH (09:35)
[2017-01-15] MEDS: LEVOTHYROXINE SODIUM 100 MCG TAB PO SCH (11:16)
[2017-01-15] MEDS: AMIODARONE 200 MG TAB PO SCH (11:16)
[2017-01-15] MEDS: AZITHROMYCIN INJ 500 MG in SODIUM CHLOR 0.9% 250 ML INJ 250 ML IV SCH (16:29)
[2017-01-15 17:04] LABS: APTT (PATIENT) 38.5 SEC (24.3-30.1)
[2017-01-15] MEDS: VANCOMYCIN 1,000 MG/NS 250 ML IV SCH ×2 (18:39)
[2017-01-15 23:58] LABS: APTT (PATIENT) 42.9 SEC (24.3-30.1)
[2017-01-16] VITALS (32 sets, daily range): BP systolic 91–112; BP diastolic 52–62; PULSE 71–115; RESP 17–28; TEMP 97.6–99.2; O2SAT 90–100
[2017-01-16] MEDS: CHLORHEXIDINE GLUCONATE 2 % 1 PACK (2 CLOTHS) TOP SCH (03:45)
[2017-01-16 05:30] LABS: HEMATOCRIT 24.7 % (39.0-51.0); MEAN CELL VOLUME 81.5 FL (80.0-100.0); MEAN CORPUSCULAR HEMOGLOBIN 26.6 PG (27.0-34.0); MEAN CORPUSCULAR HGB CONC 32.6 % (32.0-36.0); PLATELET COUNT 299 TH/MM3 (150-450); RED BLOOD COUNT 3.03 MIL/MM3 (4.50-5.90); RED CELL DISTRIBUTION WIDTH 13.5 % (11.6-17.2); REVIEW FLAG FINAL; WHITE BLOOD COUNT 16.4 TH/MM3 (4.0-11.0)
[2017-01-16 05:41] LABS: APTT (PATIENT) 44.8 SEC (24.3-30.1)
[2017-01-16] MEDS: CEFEPIME INJ 2,000 MG in SODIUM CHLORIDE 0.9% INJ 100 ML IV SCH ×2 (05:44→18:06)
[2017-01-16 05:53] LABS: BICARBONATE 35.6 MEQ/L (21.0-32.0); MAGNESIUM 2.2 MG/DL (1.5-2.5); POTASSIUM 3.2 MEQ/L (3.5-5.1)
[2017-01-16] MEDS: LEVOTHYROXINE SODIUM 112 MCG TAB PO SCH (06:32)
[2017-01-16] MEDS: LEVOTHYROXINE SODIUM 100 MCG TAB PO SCH (06:32)
--- NOTE | 2017-01-16 06:55 | RADRPT ---
EXAM DATE/TIME: 01/16/2017 06:29 [facility] COMPARISON: CHEST SINGLE AP, January 15, 2017, 7:54. INDICATIONS : Shortness of breath. MEDICAL HISTORY : Hiatal hernia. Carcinoma, colon. A-Fib. SURGICAL HISTORY : None. ENCOUNTER: Subsequent ACUITY: 1 week PAIN SCORE: 0/10 LOCATION: Bilateral chest FINDINGS: A single portable frontal view the chest shows no significant change. Diffuse bilateral pulmonary inf iltrates again noted. Tiny left effusion question. Heart is normal in size. CONCLUSION: Unchanged diffuse bilateral pulmonary infiltrates. Ethan Spence Jr., MD on January 16, 2017 at 6:53 Board Certified Radiologist. This report was verified electronically.
--- NOTE | 2017-01-16 07:43 | EKG ---
Date Performed: 01/15/2017 Time Performed: 08:42:30 PTAGE: 86 years EKG: Sinus rhythm . Anterolateral ST-T changes are nonspecific Borderline ECG PREVIOUS TRACING : 01/14/2017 07.07 DOCTOR: Elvis Shaikh Interpretating Date/Time 01/16/2017 07:41:55
--- NOTE | 2017-01-16 07:58 | MB ---
cc: YESICA RODRIGES DO DATE OF CONSULTATION 01/15/2017 IMPRESSION 1. Shortness of breath secondary to congestive heart failure. This is likely a combination of valvular heart disease (aortic stenosis), recent hip surgery and probable fluid overload. 2. Recent total hip arthroplasty right side two days prior to admission. 3. History of colon cancer. 4. Normal nuclear stress test 2014. 5. Leukocytosis, although this may be related to congestive heart failure. 6. Elevated troponin. The patient is noted to have mild renal insufficiency GFR 52 on admission. 7. Elevated troponin 8. History of atrial fibrillation. ECG on admission normal sinus rhythm. 9. Hypothyroidism on replacement therapy. RECOMMENDATIONS At this point in time, I would continue diaphoresis. I ordered an extra dose of intravenous Lasix. The patient will ultimately need cardiac catheterization to rule out progression of his aortic stenosis. No evidence of acute myocardial infarction at this point in time. EKG's are essentially normal. CLINICAL DATA Mr. Cortez is an 86-year-old male admitted to the hospital with shortness of breath, nausea and anorexia. He apparently had a successful total right hip arthroplasty, was sent home doing well. No shortness of breath or chest pain. He started to feel badly over the following 48 hours. Paramedics were called. His O2 saturations were about 50%. He was transported to the hospital. Chest x-ray demonstrated pulmonary edema. A CT angiogram failed to demonstrate any evidence of a major pulmonary emboli. It did demonstrate alveolar edema condition with congestive heart failure. Enzymes were performed and were 0.68 Troponin on admission. The troponin performed yesterday evening at 11:00 p.m. was 1.07. He has no history of ischemic heart disease, myocardial infarction, previous episodes of congestive heart failure. He does have an episode of paroxysmal atrial fibrillation. He has been on amiodarone at relatively low doses of 200 mg daily long-term. He has no history of seizure or stroke or TIA. There is no history of lung disease, COPD, asthma, bronchitis, no history of GI bleeding or acid peptic disease. No history of liver disease. There is no history of significant renal failure, no history of DVT or previous pulmonary thromboembolic disease. He does have a history of colon cancer. Previous surgeries include hip surgery, colon resection for colon cancer. It is unclear if she had chemotherapy at this point in time. He apparently has had other surgery on his right leg with hardware. He denies any fever or chills to me. Admitting physician. There may be hospital-acquired pneumonia. His potassium was also 5.1 on admission. He has had no angina. He has had no fever or shaking chills. He has had no lower extremity edema. He has had no abdominal pain but was nauseated. He did not vomit. He has had no unusual back pain, etc. PHYSICAL EXAMINATION At this point in time demonstrates an alert oriented male sitting up in bed. His sats were 88. He now has a non-rebreather and sats have come up to 92. His most recent heart rate is 100 and regular. blood pressure 129/70. T-max today is 99.9. HEAD, EARS, EYES, NOSE, AND THROAT: Anicteric sclerae. NECK: Jugular venous pressures are not elevated. RESPIRATORY: He has bibasilar rales. CARDIAC: Regular rate and rhythm with a 2/6 systolic ejection murmur which extends to the second heart sound. I could not hear splitting of the second heart sound, but the examination is somewhat limited. There are no diastolic murmurs, no gallops currently noted. ABDOMEN: Soft, nontender. EXTREMITIES: Free of cyanosis, clubbing or edema. ELECTROCARDIOGRAM A 12-lead electrocardiogram normal sinus rhythm with nonspecific ST-T changes. No evidence of A fib. LABORATORY FINDINGS Most recent electrolytes 144, 4.0. 105, 29 with a BUN 27, creatinine 1.3. Transaminases less than two x above normal limits. Troponin elevated at 1.07. Chest x-ray pulmonary edema. DISCUSSION This is an 86-year-old male with valvular heart disease admitted to the hospital with pulmonary edema and heart failure after recent total hip arthroplasty. There is no evidence of pulmonary embolism based on imaging studies and physical exam. RECOMMENDATIONS As noted above. DO LUCAS [place]/SALVATORE /8:13 PM /7:45 AM
[2017-01-16] MEDS: ATORVASTATIN 20 MG TAB PO SCH (08:38)
[2017-01-16] MEDS: DOCUSATE SODIUM 50 MG/SENNA 8.6 MG TAB PO SCH ×2 (08:38→21:48)
[2017-01-16] MEDS: PANTOPRAZOLE SODIUM 40 MG VIAL IV SCH (08:39)
[2017-01-16] MEDS: ASPIRIN 81 MG CHEW TAB CHEW SCH (08:39)
[2017-01-16] MEDS: FUROSEMIDE 40 MG TAB PO SCH ×2 (08:39→21:48)
[2017-01-16] MEDS: AMIODARONE 200 MG TAB PO SCH (08:39)
[2017-01-16] MEDS: SODIUM CHLORIDE 0.9% FLUSH 10 ML FLUSH IV FLUSH SCH ×2 (08:40→21:47)
[2017-01-16] MEDS ORDERED: POTASSIUM CHLORIDE 25 MEQ EFFERVESCENT TAB PO ONE (08:45)
--- NOTE | 2017-01-16 10:25 | HHI.CCPN ---
Subjective Remarks/Hospital Course Patient is an 86-year-old male that presented to the ED with complaints of shortness of breath. As per EMS, patient had a right hip replacement performed on Sunday by Dr. Linares. Patient reports that he was discharged to home on . Patient reports that he felt fine after his discharge, and reported that last evening he had episodes of nausea, and indigestion so he decided not to take his second dose of ASA. Patients reports that patient had the chills, reports that he was feeling weak and has had a productive cough since last night.. Reports that this morning, he was complaining of shortness of breath. When patient's home nurse arrived, she noted that patients pulse ox was 35% on room air. Patient does not use home O2. EMS were called, fire rescue reports that patient's pulse ox was 50% on room air. Patient was put on a nonrebreather which brought his pulse ox to 80%. When EMS arrived on scene, patient's pulse ox went to the low 90s on a nonrebreather. In the ED ABG was obtained and the patient was noted to have an O2 sat duration of 56% on room air with a PA O2 of 29. The patient was placed on 100% O2 imaging studies were performed showing pulmonary edema, CTA performed negative for pulmonary embolus. The patient was given 80 mg of furosemide IV with good diuresis. Initial troponin was noted to be elevated the patient received Lovenox subcutaneous 1 dose, and an aspirin 81 mg. Patient does have history of hypothyroidism, CHF, A. fib, hypertension, colon cancer, he currently takes a baby aspirin and is not on any anticoagulants. Critical care medicine was consult for management. Subjective: 01/14: Tmax 98.0. WBC count trending down. Troponins was noted to be elevated. Atorvastatin added to medication regimen. The patient's chest x-ray revealed slight improvement in his pulmonary edema additional Lasix 40 mg IV given this a.m.. Cardiology consulted 01/13, appreciate recommendations The patient continued on BiPAP at 40% overnight we'll continue to attempt to wean to facemask this a.m.. Patient is tolerating a clear liquid diet. 01/15: Tmax 99.2. Morning labs pending. Patient was noted to have an episode of nausea last evening, given Zofran with resolution of symptoms. Concern for cardiac ischemia, EKG ordered this a.m.. Troponin level 1.[address] Linares and obtained clearance to begin heparin infusion.Echo showed elevated Transvalvular gradient w/ mean of 32, and Peak of 57. Patient given Lasix, this a.m.. 01/16: Tmax 99.8. The patient was seen by his geosciences faculty member, Dr. Barrow last evening. Per report from the RN, Dr. Barrow plans to do a cardiac catheterization in the near future, when respiratory status improves. The patient received a total of 240 mg of Lasix in the last 24 hours, with 3 L diuresed. The patient had a short episode of atrial fib last night, and converted without any intervention .Persistent leukocytosis noted, ID consulted. Objective Vital Signs Date Time Temp Pulse Resp B/P Pulse Ox O2 Delivery O2 Flow Rate FiO2 01/16/17 06:40 95 01/16/17 06:05 89 01/16/17 04:17 60 01/16/17 03:01 98.6 17 103/62 01/16/17 03:01 Bi-Pap 01/15/17 10:35 15.00 Intake and Output 01/15/17 01/15/17 01/16/17 08:00 16:00 00:00 Intake Total 780 ml Output Total 400 ml 1200 ml Balance 380 ml -1200 ml Result Diagram: 01/16/17 0508 01/16/17 0508 Other Results Microbiology Date/Time Procedure Status Source Growth 01/13/17 12:55 Influenza Types A,B Antigen (BRISA) - Final Complete Nasal Aspirate NEGATIVE FOR FLU A AND B ANTIGEN.... 01/13/17 18:24 Urine Culture - Final Complete Urine Catheterized Urine NO GROWTH IN 48 HOURS. Imaging Last Impressions Chest X-Ray 01/16/17 0600 Signed Impressions: Service Date/Time: Monday, January 16, 2017 06:29 - CONCLUSION: Unchanged diffuse bilateral pulmonary infiltrates. Ethan Spence Jr., MD CT Angiography 01/13/17 1313 Signed Impressions: Service Date/Time: Friday, January 13, 2017 13:52 - CONCLUSION: 1. No evidence of pulmonary embolism. 2. Diffuse alveolar infiltrates most consistent with pulmonary edema. 3. Small bilateral pleural effusions and cardiomegaly. Pan Soria MD Last Impressions Chest X-Ray 01/15/17 0000 Signed Impressions: Service Date/Time: Sunday, January 15, 2017 07:54 - CONCLUSION: Cardiomegaly with diffuse bilateral pulmonary opacities likely pulmonary edema CHF. Deng Nicholas MD CT Angiography 01/13/17 1313 Signed Impressions: Service Date/Time: Friday, January 13, 2017 13:52 - CONCLUSION: 1. No evidence of pulmonary embolism. 2. Diffuse alveolar infiltrates most consistent with pulmonary edema. 3. Small bilateral pleural effusions and cardiomegaly. Pan Soria MD Last Impressions CT Angiography 01/13/17 1313 Signed Impressions: Service Date/Time: Friday, January 13, 2017 13:52 - CONCLUSION: 1. No evidence of pulmonary embolism. 2. Diffuse alveolar infiltrates most consistent with pulmonary edema. 3. Small bilateral pleural effusions and cardiomegaly. Pan Soria MD Chest X-Ray 01/13/17 1241 Signed Impressions: Service Date/Time: Friday, January 13, 2017 12:42 - CONCLUSION: 1. Development of diffuse interstitial prominence and small effusion suggesting congestive failure. Mega Monzon MD Objective Remarks GENERAL: Elderly gentleman on nonrebreather, no respiratory distress noted SKIN: Warm and dry. HEAD: Atraumatic. Normocephalic. EYES: Pupils equal and round. No scleral icterus. No injection or drainage. ENT: No nasal bleeding or discharge. Mucous membranes pink and moist. NECK: Trachea midline. No JVD. CARDIOVASCULAR: Normal rate, regular rhythm. Murmur 2/6 noted left sternal border RESPIRATORY: No accessory muscle use. Fine crackles noted in bases. Breath sounds equal bilaterally. GASTROINTESTINAL: Abdomen soft, non-tender, nondistended. No guarding. MUSCULOSKELETAL: Extremities without clubbing, cyanosis, or edema. No obvious deformities. NEUROLOGICAL: Awake and alert. RASS 0. No gross focal/sensory deficits. Follows commands in all 4 extremities. Date of Insertion: January 13, 2017 A/P Assessment and Plan This is a 86-year-old gentleman status post right total hip arthroplasty recently discharged from the hospital, with noted hypoxemic respiratory failure secondary to john, most likely flash pulmonary edema. The patient has a remote cardiac history of noted A. fib, and CHF currently in sinus rhythm. The patient's lactate level was also noted to be slightly elevated, possibly secondary to ischemia or sepsis. Neurologic: GCS 15 Neurochecks per ICU protocol Maintain sleep hygiene Consider melatonin 5 mg for insomnia Respiratory: Acute hypoxemic respiratory failure Pulmonary edema TA no evidence of pulmonary embolus. Diffuse alveolar infiltrates consistent with pulmonary edema. Small bilateral pleural effusions. Cardiomegaly Maintain O2 sat greater than 92% Given 80 mg IV Lasix in ED, will wean FiO2 as clinically indicated Continue on BiPAP wean as tolerated Bronchodilators every 4 hours when necessary Maintain head of bed 30 01/16 CXR-pulmonary edema 01/16 initiate Hi flow O2, as tolerated by the patient and wean FiO2 Cardiovascular: NSTEMI History of A. fib CHF Cardiomegaly Grade 1 diastolic dysfunction Aortic Stenosis Given aspirin, Lovenox in ED 01/13 Cardiology consulted 01/13, appreciate recommendations Echocardiogram 01/14-ejection fraction 50-55%,no RWMA, diastolic dysfunction, tricuspid valve mild regurg, mitral valve mild regurg.PASP 54 mmHg elevated transvalvular gradients Continue Atorvastatin 20 mg daily home med, and amiodarone continued Initial troponin 0.68->1.44 Continue ASA 81 mg BNP 782 Patient's private geosciences faculty member is [facility] 01/14 atrial fibrillation controlled, intermittently with resolution normal sinus rhythm. Patient continues on home dose amiodarone 200 mg twice a day 01/15 Heparin infusion initiated after receiving clearance from Orthopedic surgeon , Dr. Linares 01/15 Management per Cardiology -Dr. Barrow, tentative plans for cardiac catheterization per report Renal: Renal insufficiency Insert Kinney, monitor urine output -- Strict I/Os FEN/GI: Hyperkalemia-resolved Hiatal hernia Lasix 40 mg IV BID x 3 days per Cards Monitor BMP Hep-Lock IV Protonix 40 mg IV Heart healthy diet Ensure supplement shakes Bowel regimen Heme/ID: Lactic acidosis Persistent Leukocytosis F/U blood urine and sputum cultures -NGTD Initial Lactate level 2.7, follow up serial lactate level possibly 2/2 ischemia or infectious process Antibiotics received in the ED included Zosyn, and vancomycin Patient placed on empiric antibiotics cefepime, vancomycin and azithromycin on - will de-escalate with resolution of leukocytosis Monitor CBC ID consulted Endocrine: Hyperglycemia of critical illness Hypothyroidism Obtain TSH normal Synthroid home medication 212 mcgs/d Glucose monitoring per ICU protocol. Low-dose regimen -- SSI Physical therapy ampulla mentation per Dr. Tran, patient is status post right total hip arthroplasty POD #8 Prophylaxis: GI Prophylaxis Protonix DVT Prophylaxis -- SCDs Heparin infusion Lines: Peripheral IVs 2. Central line if indicated Dispo: Discussed with RN at bedside. Level 3 Plan transfer to [facility] in the [facility] Physician Ronda Hall MD January 16, 2017 10:25
[2017-01-16] MEDS: HEPARIN-D5W INJ 250 ML IV SCH (13:01)
[2017-01-16] MEDS: AZITHROMYCIN INJ 500 MG in SODIUM CHLOR 0.9% 250 ML INJ 250 ML IV SCH (16:27)
--- NOTE | 2017-01-16 18:17 | PD.ID.CON ---
History of Present Illness Service ID Consult Requested By Reason for Consult Evaluation and Mment of persistent leucocytosis and pneumonia in a post op patient. 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 Per his who provided most of the history patient was doing ok post operatively and participating in PT/OT at home. With this background patient was admitted to the hospital with shortness of breath, nausea and anorexia. Over the last 48 hrs prior to admission patient started getting progressively short of breath and when home health checked his O2 sats at home they were in late 30s. EMS was called, patient was started on oxygen and transported to the ED. In the ED his sats were 58%. CXR in ED showed pulmonary edema. CT angiogram was negative for PE but demonstrated pulmonary edema. Cardiology has been following patient and determined. His cardiac enzymes were 0.68 on admission and later elevated to 1.07. Pertinent positives and negatives: No history of lung disease, COPD, asthma, bronchitis, no history of GI bleeding or acid peptic disease. No history of liver disease. There is no history of significant renal failure, no history of DVT or previous pulmonary thromboembolic disease. He does have a history of colon cancer. ID consulted for evaluation and Mment of persistent leucocytosis, ? Pneumonia in a patient with concomitant CHF, recent Total hip replacement. Review of Systems Constitutional: DENIES: Diaphoretic episodes, Fatigue, Fever, Weight gain, Weight loss, Chills, Dizziness, Change in appetite, Night Sweats Endocrine: DENIES: Heat/cold intolerance, Polydipsia, Polyuria, Polyphagia Eyes: DENIES: Blurred vision, Diplopia, Eye inflammation, Eye pain, Vision loss , Photosensitivity, Double Vision Ears, nose, mouth, throat: DENIES: Tinnitus, Hearing loss, Vertigo, Nasal discharge, Oral lesions, Throat pain, Hoarseness, Ear Pain, Running Nose, Epistaxis, Sinus Pain, Toothache, Odynophagia Respiratory: DENIES: Apneas, Cough, Snoring, Wheezing, Hemoptysis, Sputum production, Shortness of breath Cardiovascular: COMPLAINS OF: Dyspnea on Exertion, Orthopnea, DENIES: Chest pain, Palpitations, Syncope, PND, Lower Extremity Edema, Claudication Gastrointestinal: DENIES: Abdominal pain, Black stools, Bloody stools, Constipation, Diarrhea, Nausea, Vomiting, Difficulty Swallowing, Anorexia Genitourinary: DENIES: Sexual dysfunction, Urinary frequency, Urinary incontinence, Urgency, Hematuria, Dysuria, Nocturia, Penile Discharge, Testicular Pain, Testicular Swelling Musculoskeletal: DENIES: Joint pain, Muscle aches, Stiffness, Joint Swelling, Back pain, Neck pain Integumentary: DENIES: Abnormal pigmentation, Nail changes, Pruritus, Rash Hematologic/lymphatic: DENIES: Bruising, Lymphadenopathy Immunologic/allergic: DENIES: Eczema, Urticaria Neurologic: DENIES: Abnormal gait, Headache, Localized weakness, Paresthesias, Seizures, Speech Problems, Tremor, Poor Balance Psychiatric: DENIES: Anxiety, Confusion, Mood changes, Depression, Hallucinations, Agitation, Suicidal Ideation, Homicidal Ideation, Delusions Except as stated in HPI: all other systems reviewed are Neg Past Family Social History Allergies: Uncoded Allergies: RUBBER (Allergy, Severe, ITCHING, 12/29/16) Past Medical History hypothyroidism, CHF, A. fib, hypertension Past Surgical History Right hip hardware now removed. Right Total hip replacement. Colon resection for colon cancer. Reported Medications Reported Meds & Active Scripts Active Hydrocodone-Acetaminophen 7.5-325 mg Tab 1 Tab PO Q4H PRN Aspirin EC (Aspirin) 81 Mg Tabdr 81 Mg PO BID Reported Calcium (Calcium Carbonate) 1,250 Mg Tab 1,250 Mg PO DAILY 1,250 mg calcium carbonate (500 mg elemental calcium) Multivitamin Adults (Multiple Vitamins W/ Minerals) 1 Tab 1 Tab PO DAILY Amiodarone (Amiodarone HCl) 200 Mg Tab 200 Mg PO DAILY Synthroid (Levothyroxine Sodium) 100 Mcg Tab 100 Mcg PO DAILY take with 112 mcg for toatal sose of 212mcg Synthroid (Levothyroxine Sodium) 112 Mcg Tab 112 Mcg PO DAILY take with 100 mcg for toatal sose of 212mcg Active Ordered Medications Current Medications Medications (Trade) Dose Ordered Sig/Mookie Route Start Time Stop Time Status Last Admin (NS Flush) 2 ml UNSCH PRN IV FLUSH 01/13/17 15:45 (NS Flush) 2 ml BID IV FLUSH 01/13/17 21:00 01/16/17 08:40 (Tylenol) 650 mg Q6H PRN PO 01/13/17 15:45 ([place] 5-325 Mg) 1 tab Q4H PRN PO 01/13/17 15:45 (Protonix Inj) 40 mg DAILY IV 01/14/17 09:00 01/16/17 08:39 (Zofran Inj) 4 mg Q6H PRN IV 01/13/17 15:45 01/15/17 06:06 (Gertrude-Colace) 2 tab BID PO 01/13/17 21:00 01/16/17 08:38 (Dulcolax Supp) 10 mg DAILY PRN RECTAL 01/13/17 15:45 (Milk Of Magnesia Liq) 30 ml Q12H PRN PO 01/13/17 15:45 Miscellaneous Information 1 Q361D XX 01/13/17 15:45 (Chlorhexidine 2% Cloth) 3 pack Taper DAILY@04 TOP 01/14/17 04:00 01/10/18 03:59 Chlorhexidine Gluconate 3 pack 3 pack UNSCH PRN TOP 01/13/17 15:45 Potassium Chloride 100 ml @ 50 mls/hr Q2H PRN IV 01/13/17 15:45 (KCl 20 Meq Premix Inj) 100 ml @ 50 mls/hr Q2H PRN IV 01/13/17 15:45 Potassium Bicarb/ Potassium Chloride 50 meq 50 meq UNSCH PRN PO 01/13/17 15:45 Potassium Chloride 100 ml @ 25 mls/hr UNSCH PRN IV 01/13/17 15:45 Potassium Chloride 100 ml @ 50 mls/hr Q2H PRN IV 01/13/17 15:45 (Magnesium Sulfate Inj/NS Inj) 100 ml @ 50 mls/hr UNSCH PRN IV 01/13/17 15:45 Magnesium Oxide 800 mg 800 mg UNSCH PRN PO 01/13/17 15:45 (Magnesium Sulfate Inj/NS Inj) 100 ml @ 50 mls/hr UNSCH PRN IV 01/13/17 15:45 Potassium Phosphate 2000 mg 2,000 mg Q4H PRN PO 01/13/17 15:45 (Sodium Phosphate Inj/NS 250 ml Inj) 250 ml @ 42 mls/hr UNSCH PRN IV 01/13/17 15:45 Potassium Phosphate 2000 mg 2,000 mg UNSCH PRN PO/TUBE 01/13/17 15:45 Cefepime HCl 2000 mg/Sodium Chloride 100 ml @ 200 mls/hr Q12H IV 01/13/17 18:00 01/16/17 18:06 Azithromycin 500 mg/Sodium Chloride 250 ml @ 250 mls/hr Q24H IV 01/13/17 17:00 01/16/17 16:27 (Vancomycin Consult Pharmacy) 0 ml @ 0 mls/hr UNSCH OTHER 01/13/17 15:45 (Lipitor) 20 mg DAILY PO 01/14/17 09:00 01/16/17 08:38 Aspirin 81 mg 81 mg DAILY CHEW 01/14/17 09:00 01/16/17 08:39 (Vancomycin Inj/ NS 250 ml Inj) 250 ml @ 250 mls/hr Q24H IV 01/14/17 18:00 01/16/17 18:50 Miscellaneous Information SPECIFIC LAB TO BE PEDRO... ONCE ONCE .XX 01/17/17 17:45 01/17/17 17:46 (Heparin-D5W Inj) 250 ml @ 0 mls/hr TITRATE IV 01/15/17 08:45 01/16/17 13:01 (Cordarone) 200 mg DAILY PO 01/15/17 11:15 01/16/17 08:39 (Synthroid) 100 mcg DAILY@06 PO 01/15/17 11:15 01/16/17 06:32 (Synthroid) 112 mcg DAILY@0600 PO 01/16/17 06:00 01/16/17 06:32 (Lasix) 40 mg BID PO 01/16/17 09:00 01/16/17 08:39 Family History reviewed and NC to current ID problems. Social History No smoking. Drinks 4-5 days a week a glass of wine etc. No illicit drugs. [place]. Has upto 8 plus steps to get into his home. Physical Exam Vital Signs Vital Signs Date Time Temp Pulse Resp B/P Pulse Ox O2 Delivery O2 Flow Rate FiO2 01/16/17 15:47 93 01/16/17 15:44 90 Non-Rebreather 15.00 01/16/17 15:44 99.2 101 20 98/54 90 01/16/17 14:30 94 01/16/17 13:44 92 01/16/17 12:00 92 01/16/17 11:45 98.7 90 17 112/58 98 01/16/17 11:15 100 60 01/16/17 11:15 98 Bi-Pap 01/16/17 11:00 104 01/16/17 10:30 85 Partial Non-Rebreather 15.00 01/16/17 10:00 78 01/16/17 09:00 98 01/16/17 08:00 90 01/16/17 07:00 72 01/16/17 07:00 97.6 71 19 110/55 94 01/16/17 07:00 98 Bi-Pap 01/16/17 06:40 95 01/16/17 06:05 89 01/16/17 05:09 75 01/16/17 04:17 96 60 01/16/17 04:01 89 01/16/17 03:01 98.6 112 17 103/62 94 01/16/17 03:01 98 Bi-Pap 60 01/16/17 03:00 92 01/16/17 02:10 115 01/16/17 01:18 85 01/16/17 00:54 97 60 01/16/17 00:06 95 01/15/17 23:41 99.4 85 18 109/56 98 01/15/17 23:00 93 01/15/17 22:00 92 01/15/17 21:21 95 60 01/15/17 21:00 86 01/15/17 20:00 90 01/15/17 19:30 99.8 88 19 102/57 92 01/15/17 19:00 88 Physical Exam GENERAL: This is a well-nourished, well-developed patient, in no apparent distress. On 50% Non rebreather. SKIN: No rashes, ecchymoses or lesions. Cool and dry. HEAD: Atraumatic. Normocephalic. No temporal or scalp tenderness. EYES: Pupils equal round and reactive. Extraocular motions intact. No scleral icterus. No injection or drainage. ENT: Nose without bleeding, purulent drainage or septal hematoma. Throat without erythema, tonsillar hypertrophy or exudate. Uvula midline. Airway patent. NECK: Trachea midline. Supple, nontender, no meningeal signs. CARDIOVASCULAR: No murmur RESPIRATORY: Breath sounds equal bilaterally but decreased in bases. Basilar crackles. GASTROINTESTINAL: Abdomen soft, non-tender, nondistended. MUSCULOSKELETAL: Right hip surgical site intact with no e.o infection. NEUROLOGICAL: Awake and alert. Grossly non focal Psych: cooperative IV line sites with no e.o infection. Laboratory Laboratory Tests Test 01/15/17 01/16/17 23:33 05:08 Activated Partial 42.9 44.8 Thromboplast Time White Blood Count 16.4 Red Blood Count 3.03 Hemoglobin 8.0 Hematocrit 24.7 Mean Corpuscular Volume 81.5 Mean Corpuscular Hemoglobin 26.6 Mean Corpuscular Hemoglobin 32.6 Concent Red Cell Distribution Width 13.5 Platelet Count 299 Mean Platelet Volume 7.5 Sodium Level 143 Potassium Level 3.2 Chloride Level 100 Carbon Dioxide Level 35.6 Anion Gap 7 Blood Urea Nitrogen 24 Creatinine 1.23 Estimat Glomerular Filtration 56 Rate Random Glucose 120 Calcium Level 8.0 Phosphorus Level 3.2 Magnesium Level 2.2 Date/Time Procedure Status Source Growth 01/15/17 11:30 Stool Occult Blood ([facility]) Ordered Stool Stool Pending 01/13/17 18:24 Urine Culture - Final Complete Urine Catheterized Urine NO GROWTH IN 48 HOURS. 01/13/17 12:55 Influenza Types A,B Antigen ([facility]) - Final Complete Nasal Aspirate NEGATIVE FOR FLU A AND B ANTIGEN.... 01/13/17 12:55 Aerobic Blood Culture - Preliminary Resulted Blood Peripheral NO GROWTH IN 3 DAYS 01/13/17 12:55 Anaerobic Blood Culture - Preliminary Resulted Blood Peripheral NO GROWTH IN 3 DAYS Result Diagram: 01/16/17 0508 01/16/17 0508 Imaging Last Impressions Chest X-Ray 01/16/17 0600 Signed Impressions: Service Date/Time: Monday, January 16, 2017 06:29 - CONCLUSION: Unchanged diffuse bilateral pulmonary infiltrates. Ethan Spence Jr., MD CT Angiography 01/13/17 1313 Signed Impressions: Service Date/Time: Friday, January 13, 2017 13:52 - CONCLUSION: 1. No evidence of pulmonary embolism. 2. Diffuse alveolar infiltrates most consistent with pulmonary edema. 3. Small bilateral pleural effusions and cardiomegaly. Pan Soria MD Assessment and Plan Assessment and Plan Pneumonia plus component of Pulm edema. 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 Recs: Check procalcitonin (help trend or differentiate bacterial infection vs pulm edema) Continue Cefepime IV Continue Vanco IV (target 15-20) Continue Azithro (ok to change to oral in am) Follow cultures Follow clinically. Will deescalate after procalcitonin results back. Currently still significantly short of breath and no sputum cultures. Sharon Day MD January 16, 2017 18:17 Sharon Day MD January 16, 2017 18:17
[2017-01-16] MEDS: VANCOMYCIN 1,000 MG/NS 250 ML IV SCH ×2 (18:50)
[2017-01-17] VITALS (33 sets, daily range): BP systolic 100–122; BP diastolic 54–65; PULSE 74–112; RESP 25–32; TEMP 98–99.8; O2SAT 91–100
[2017-01-17] MEDS: CHLORHEXIDINE GLUCONATE 2 % 1 PACK (2 CLOTHS) TOP SCH (03:55)
[2017-01-17] MEDS: CEFEPIME INJ 2,000 MG in SODIUM CHLORIDE 0.9% INJ 100 ML IV SCH ×2 (05:27→17:17)
[2017-01-17] MEDS: LEVOTHYROXINE SODIUM 100 MCG TAB PO SCH (05:28)
[2017-01-17] MEDS: LEVOTHYROXINE SODIUM 112 MCG TAB PO SCH (05:29)
[2017-01-17 06:15] LABS: HEMATOCRIT 25.1 % (39.0-51.0); MEAN CELL VOLUME 81.9 FL (80.0-100.0); MEAN CORPUSCULAR HEMOGLOBIN 26.2 PG (27.0-34.0); PLATELET COUNT 301 TH/MM3 (150-450); RED BLOOD COUNT 3.06 MIL/MM3 (4.50-5.90); RED CELL DISTRIBUTION WIDTH 13.9 % (11.6-17.2); REVIEW FLAG FINAL; WHITE BLOOD COUNT 18.7 TH/MM3 (4.0-11.0)
--- NOTE | 2017-01-17 06:24 | RADRPT ---
EXAM DATE/TIME: 01/17/2017 05:09 [facility] COMPARISON: CHEST SINGLE AP, January 16, 2017, 6:29. INDICATIONS : Short of breath. MEDICAL HISTORY : Hiatal hernia. Carcinoma, colon. A-Fib. SURGICAL HISTORY : None. ENCOUNTER: Subsequent ACUITY: 1 week PAIN SCORE: 0/10 LOCATION: Bilateral chest FINDINGS: A single portable frontal view the chest shows no interval change. Diffuse bilateral infiltrates anish in. Heart is normal in size. No effusions. CONCLUSION: Unchanged diffuse pulmonary infiltrates. Ethan Spence Jr., MD on January 17, 2017 at 6:22 Board Certified Radiologist. This report was verified electronically.
[2017-01-17 06:34] LABS: APTT (PATIENT) 45.8 SEC (24.3-30.1)
[2017-01-17 06:38] LABS: BICARBONATE 32.7 MEQ/L (21.0-32.0); MAGNESIUM 2.4 MG/DL (1.5-2.5)
[2017-01-17] MEDS: FUROSEMIDE 40 MG TAB PO SCH (08:40)
[2017-01-17] MEDS: AMIODARONE 200 MG TAB PO SCH (08:40)
[2017-01-17] MEDS: DOCUSATE SODIUM 50 MG/SENNA 8.6 MG TAB PO SCH ×2 (08:40→21:08)
[2017-01-17] MEDS: ATORVASTATIN 20 MG TAB PO SCH (08:40)
[2017-01-17] MEDS: POTASSIUM CHLOR 20 MEQ PREMIX 100 ML IV PRN ×2 (08:41→08:51)
[2017-01-17] MEDS: ASPIRIN 81 MG CHEW TAB CHEW SCH (08:41)
--- NOTE | 2017-01-17 08:42 | PD.ORT.PN ---
Subjective Post Op Day #: 9 Subjective Remarks He still has not been OOB because of hypoxia. Objective Vitals Vital Signs Date Time Temp Pulse Resp B/P Pulse Ox O2 Delivery O2 Flow Rate FiO2 01/17/17 08:15 97 70 01/17/17 06:00 103 01/17/17 05:00 90 01/17/17 04:00 91 Bi-Pap 70 01/17/17 04:00 91 01/17/17 04:00 98.4 93 30 101/57 91 01/17/17 03:00 92 01/17/17 02:32 96 70 01/17/17 02:00 80 01/17/17 01:00 84 01/17/17 01:00 95 Bi-Pap 70 01/17/17 00:02 95 BiPAP 70 01/17/17 00:00 95 Bi-Pap 90 01/17/17 00:00 94 01/17/17 00:00 99.8 96 30 109/55 96 01/16/17 23:00 95 01/16/17 22:45 93 90 01/16/17 22:00 86 01/16/17 21:00 88 01/16/17 21:00 95 Non-Rebreather 15.00 01/16/17 20:00 99.0 89 28 97/52 95 01/16/17 20:00 96 01/16/17 20:00 95 Non-Rebreather 15.00 01/16/17 19:00 90 01/16/17 18:00 90 01/16/17 17:00 92 01/16/17 16:00 92 01/16/17 15:47 93 01/16/17 15:44 90 Non-Rebreather 15.00 01/16/17 15:44 99.2 101 20 98/54 90 01/16/17 14:30 94 01/16/17 13:44 92 01/16/17 12:00 92 01/16/17 11:45 98.7 90 17 112/58 98 01/16/17 11:15 100 60 01/16/17 11:15 98 Bi-Pap 01/16/17 11:00 104 01/16/17 10:30 85 Partial Non-Rebreather 15.00 01/16/17 10:00 78 01/16/17 09:00 98 I/O 01/16/17 01/16/17 01/16/17 01/17/17 01/17/17 01/17/17 07:00 15:00 23:00 07:00 15:00 23:00 Intake Total 348 ml 1080 ml 446 ml Output Total 2325 ml 450 ml 500 ml Balance -1977 ml 630 ml -54 ml Intake Oral 240 ml 720 ml 240 ml IV Total 108 ml 360 ml 206 ml Output Urine Total 2325 ml 450 ml 500 ml # Bowel Movements 0 0 0 Result Diagram: 01/17/1745601/17/17456 Imaging Last 24 hours Impressions Chest X-Ray 01/17/17 06 Signed Impressions: Service Date/Time: Tuesday, January 17, 2017 05:09 - CONCLUSION: Unchanged diffuse pulmonary infiltrates. Ethan Spence Jr., MD Objective Remarks He is resting (sleeping soundly) comfortably, supine in bed, rith a rebreather in place. The neurovascular status is intact. I did not awaken him. Assessment & Plan Ortho Post Op Day #: 9 Problem List: (1) Status post total hip replacement, right Plan: Continue postop care . Resume PT/OT when allowed by admitting physician. Assessment and Plan Orthopaedically stable. PT/OT when he is allowed to resume therapy. Chart reviewed. I did not awaken him. Tea Linares MD (Charles) January 17, 2017 08:42
[2017-01-17] MEDS: PANTOPRAZOLE SODIUM 40 MG VIAL IV SCH (08:50)
[2017-01-17] MEDS: SODIUM CHLORIDE 0.9% FLUSH 10 ML FLUSH IV FLUSH SCH ×2 (09:00→21:08)
[2017-01-17] MEDS ORDERED: FUROSEMIDE 20 MG/2 ML VIAL IV PUSH ONE (10:00)
--- NOTE | 2017-01-17 11:53 | HHI.PR ---
Subjective Remarks Follow up for acute respiratory failure, pulmonary edema, NSTEMI. Patient is currently on BiPAP and initially required 100% oxygen. Denies any chest pain, fever or chills. Later on after receiving 20 mg of IV Lasix, patient improved a little bit and now requiring 60% oxygen. Objective Vitals Vital Signs Date Time Temp Pulse Resp B/P Pulse Ox O2 Delivery O2 Flow Rate FiO2 01/17/17 11:26 97 Bi-Pap 12.00 70 01/17/17 11:24 91 01/17/17 11:00 98.1 107 25 100/65 97 01/17/17 10:30 94 BiPAP 70 01/17/17 10:13 94 70 01/17/17 10:00 101 01/17/17 09:00 112 01/17/17 08:15 97 70 01/17/17 08:00 74 01/17/17 07:00 93 Bi-Pap 12.00 70 01/17/17 07:00 80 01/17/17 07:00 98.8 80 30 115/58 93 01/17/17 06:00 103 01/17/17 05:00 90 01/17/17 04:00 91 Bi-Pap 70 01/17/17 04:00 91 01/17/17 04:00 98.4 93 30 101/57 91 01/17/17 03:00 92 01/17/17 02:32 96 70 01/17/17 02:00 80 01/17/17 01:00 84 01/17/17 01:00 95 Bi-Pap 70 01/17/17 00:02 95 BiPAP 70 01/17/17 00:00 95 Bi-Pap 90 01/17/17 00:00 94 01/17/17 00:00 99.8 96 30 109/55 96 01/16/17 23:00 95 01/16/17 22:45 93 90 01/16/17 22:00 86 01/16/17 21:00 88 01/16/17 21:00 95 Non-Rebreather 15.00 01/16/17 20:00 99.0 89 28 97/52 95 01/16/17 20:00 96 01/16/17 20:00 95 Non-Rebreather 15.00 01/16/17 19:00 90 01/16/17 18:00 90 01/16/17 17:00 92 01/16/17 16:00 92 01/16/17 15:47 93 01/16/17 15:44 90 Non-Rebreather 15.00 01/16/17 15:44 99.2 101 20 98/54 90 01/16/17 14:30 94 01/16/17 13:44 92 01/16/17 12:00 92 I/O 01/16/17 01/16/17 01/16/17 01/17/17 01/17/17 01/17/17 07:00 15:00 23:00 07:00 15:00 23:00 Intake Total 348 ml 1080 ml 446 ml Output Total 2325 ml 450 ml 500 ml Balance -1977 ml 630 ml -54 ml Intake Oral 240 ml 720 ml 240 ml IV Total 108 ml 360 ml 206 ml Output Urine Total 2325 ml 450 ml 500 ml # Bowel Movements 0 0 0 Result Diagram: 01/17/17 0457 01/17/17 0457 Imaging Last Impressions Chest X-Ray 01/17/17 0600 Signed Impressions: Service Date/Time: Tuesday, January 17, 2017 05:09 - CONCLUSION: Unchanged diffuse pulmonary infiltrates. Ethan Spence Jr., MD CT Angiography 01/13/17 1313 Signed Impressions: Service Date/Time: Friday, January 13, 2017 13:52 - CONCLUSION: 1. No evidence of pulmonary embolism. 2. Diffuse alveolar infiltrates most consistent with pulmonary edema. 3. Small bilateral pleural effusions and cardiomegaly. Pan Soria MD Objective Remarks GENERAL: AOX3, NAD. On BiPAP. SKIN: Warm and dry. HEAD: Normocephalic. EYES: No scleral icterus. No injection or drainage. NECK: Supple, trachea midline. No JVD or lymphadenopathy. CARDIOVASCULAR: Regular rate and rhythm without murmurs, gallops, or rubs. RESPIRATORY: Moderate air entry, diffuse crackles. GASTROINTESTINAL: Abdomen soft, non-tender, nondistended. MUSCULOSKELETAL: No cyanosis, or edema. BACK: Nontender without obvious deformity. No CVA tenderness. Procedures None. Date of Insertion: January 13, 2017 A/P Problem List: (1) Acute respiratory failure with hypoxia ICD Code: J96.01 Status: Acute (2) Pulmonary edema ICD Code: J81.1 Status: Acute (3) Status post total hip replacement, right ICD Code: Z96.641 Status: Acute (4) NSTEMI (non-ST elevated myocardial infarction) ICD Code: I21.4 Status: Acute Assessment and Plan Mr. Cortez is a pleasant 86-year-old male with a recent history of right hip replacement who presented to the emergency department on 01/13/2017 due to shortness of breath. Patient was managed in the ICU until 01/16/2017. Imaging studies indicate pulmonary edema. Also was found to have NSTEMI. Acute respiratory failure with hypoxia Acute pulmonary edema - Continue BiPAP at setting 12 over 5. Wean off O2 requirement as much as is possible. - Discontinue oral Lasix. Start Lasix 20 mg IV twice a day. - Patient's blood pressure is on the lower side and thus we have to be careful regarding Lasix use. - Probable pneumonia, healthcare associated - Procalcitonin 0.85 (elevated). - ID is following. Patient is currently on cefepime, vancomycin, azithromycin. - Atrial fibrillation - NSTEMI - Cardiology is following. Cardiology will consider Cardiac cath in future. - Continue amiodarone 200 mg daily, atorvastatin 20 mg daily, Aspirin 81mg Qday. - Currently on heparin drip. - Hypothyroidism - continue levothyroxine 212 g by mouth daily. - Hypokalemia - Potassium 3.0 today. We'll continue to give IV potassium today. - Start by mouth potassium as well 10 mEq every 8 hours. - Magnesium was 2.4. Full code. Heparin drip. I came back later to check on patient. Patient reports some improvements. Had good urine output after Lasix. Still requiring BiPAP. Problem Qualifiers (1) Pulmonary edema: Qualified Code: J81.0 - Acute pulmonary edema Yola Rocha DO January 17, 2017 11:53 am
--- NOTE | 2017-01-17 13:55 | PD.CARD.PN ---
Objective Vital Signs / I&O Vital Signs Date Time Temp Pulse Resp B/P Pulse Ox O2 Delivery O2 Flow Rate FiO2 01/17/17 13:00 87 01/17/17 12:00 81 01/17/17 11:26 97 Bi-Pap 12.00 70 01/17/17 11:24 91 01/17/17 11:00 98.1 107 25 100/65 97 01/17/17 10:30 94 BiPAP 70 01/17/17 10:13 94 70 01/17/17 10:00 101 01/17/17 09:00 112 01/17/17 08:15 97 70 01/17/17 08:00 74 01/17/17 07:00 93 Bi-Pap 12.00 70 01/17/17 07:00 80 01/17/17 07:00 98.8 80 30 115/58 93 01/17/17 06:00 103 01/17/17 05:00 90 01/17/17 04:00 91 Bi-Pap 70 01/17/17 04:00 91 01/17/17 04:00 98.4 93 30 101/57 91 01/17/17 03:00 92 01/17/17 02:32 96 70 01/17/17 02:00 80 01/17/17 01:00 84 01/17/17 01:00 95 Bi-Pap 70 01/17/17 00:02 95 BiPAP 70 01/17/17 00:00 95 Bi-Pap 90 01/17/17 00:00 94 01/17/17 00:00 99.8 96 30 109/55 96 01/16/17 23:00 95 01/16/17 22:45 93 90 01/16/17 22:00 86 01/16/17 21:00 88 01/16/17 21:00 95 Non-Rebreather 15.00 01/16/17 20:00 99.0 89 28 97/52 95 01/16/17 20:00 96 01/16/17 20:00 95 Non-Rebreather 15.00 01/16/17 19:00 90 01/16/17 18:00 90 01/16/17 17:00 92 01/16/17 16:00 92 01/16/17 15:47 93 01/16/17 15:44 90 Non-Rebreather 15.00 01/16/17 15:44 99.2 101 20 98/54 90 01/16/17 14:30 94 I/O 01/16/17 01/16/17 01/16/17 01/17/17 01/17/17 01/17/17 07:00 15:00 23:00 07:00 15:00 23:00 Intake Total 348 ml 1080 ml 446 ml Output Total 2325 ml 450 ml 500 ml Balance -1977 ml 630 ml -54 ml Intake Oral 240 ml 720 ml 240 ml IV Total 108 ml 360 ml 206 ml Output Urine Total 2325 ml 450 ml 500 ml # Bowel Movements 0 0 0 Laboratory Laboratory Tests Test 01/16/17 01/17/17 20:25 04:57 Procalcitonin 0.85 ng/mL White Blood Count 18.7 TH/MM3 Red Blood Count 3.06 MIL/MM3 Hemoglobin 8.0 GM/DL Hematocrit 25.1 % Mean Corpuscular Volume 81.9 FL Mean Corpuscular Hemoglobin 26.2 PG Mean Corpuscular Hemoglobin 32.0 % Concent Red Cell Distribution Width 13.9 % Platelet Count 301 TH/MM3 Mean Platelet Volume 7.8 FL Activated Partial 45.8 SEC Thromboplast Time Sodium Level 144 MEQ/L Potassium Level 3.0 MEQ/L Chloride Level 103 MEQ/L Carbon Dioxide Level 32.7 MEQ/L Anion Gap 8 MEQ/L Blood Urea Nitrogen 24 MG/DL Creatinine 1.12 MG/DL Estimat Glomerular Filtration 62 ML/MIN Rate Random Glucose 123 MG/DL Calcium Level 8.4 MG/DL Phosphorus Level 2.4 MG/DL Magnesium Level 2.4 MG/DL Assessment and Plan Assessment and Plan PT IS ABOUT THE SAME NO CP OR DEEPAK NOW A FIB CXR SAME CREAT V 1.03 HYPOXEMIC RESP FAILURE SEVERE SATS V 60'S OFF BIPAP FIO2 .7 V BS FEW BASILAR RALES IRREG NO S3 HAS 2/6 AND MR MURMURS NO EDEMA JVP NL WILL DC AMIODARONE THIS CAN RARELY CAUSE NON-CARDIOGENIC PULM EDEMA AND RESP FAILURE NO INDICATION FOR STEROIDS @ THIS TIME Michele Velazquez DO January 17, 2017 13:55
[2017-01-17] MEDS ORDERED: DIGOXIN 0.5 MG/2 ML VIAL IV PUSH ONE (15:15)
[2017-01-17] MEDS: FUROSEMIDE 20 MG/2 ML VIAL IV PUSH SCH (17:18)
--- NOTE | 2017-01-17 17:18 | HHI.IDPN ---
Subjective Subjective Remarks is an 86 y/o CM with PMHx of paroxysmal atrial fibrillation on senior living amiodarone, no prior ischemic heart disease, recent Right total hip arthroplasty. Per his who provided most of the history patient was doing ok post operatively and participating in PT/OT at home. With this background patient was admitted to the hospital with shortness of breath, nausea and anorexia. Over the last 48 hrs prior to admission patient started getting progressively short of breath and when home health checked his O2 sats at home they were in late 30s. EMS was called, patient was started on oxygen and transported to the ED. In the ED his sats were 58%. CXR in ED showed pulmonary edema. CT angiogram was negative for PE but demonstrated pulmonary edema. Cardiology has been following patient and determined. His cardiac enzymes were 0.68 on admission and later elevated to 1.07. Pertinent positives and negatives: No history of lung disease, COPD, asthma, bronchitis, no history of GI bleeding or acid peptic disease. No history of liver disease. There is no history of significant renal failure, no history of DVT or previous pulmonary thromboembolic disease. He does have a history of colon cancer. ID consulted for evaluation and Mment of persistent leucocytosis, ? Pneumonia in a patient with concomitant CHF, recent Total hip replacement. Overnight events reviewed No fever No rash No diarrhea Antibiotics Cefepime IV Azithro oral Lines Line sites with no e/o infection Past Medical History reviewed. Allergies: Uncoded Allergies: RUBBER (Allergy, Severe, ITCHING, 12/29/16) Objective . Vital Signs Date Time Temp Pulse Resp B/P Pulse Ox O2 Delivery O2 Flow Rate FiO2 01/17/17 17:00 85 01/17/17 16:07 74 01/17/17 15:56 98 Bi-Pap 12.00 60 01/17/17 15:00 89 01/17/17 15:00 98.6 95 25 103/64 91 01/17/17 14:54 85 01/17/17 14:45 93 60 01/17/17 13:00 87 01/17/17 12:00 81 01/17/17 11:26 97 Bi-Pap 12.00 70 01/17/17 11:24 91 01/17/17 11:00 98.1 107 25 100/65 97 01/17/17 10:30 94 BiPAP 70 01/17/17 10:13 94 70 01/17/17 10:00 101 01/17/17 09:00 112 01/17/17 08:15 97 70 01/17/17 08:00 74 01/17/17 07:00 93 Bi-Pap 12.00 70 01/17/17 07:00 80 01/17/17 07:00 98.8 80 30 115/58 93 01/17/17 06:00 103 01/17/17 05:00 90 01/17/17 04:00 91 Bi-Pap 70 01/17/17 04:00 91 01/17/17 04:00 98.4 93 30 101/57 91 01/17/17 03:00 92 01/17/17 02:32 96 70 01/17/17 02:00 80 01/17/17 01:00 84 01/17/17 01:00 95 Bi-Pap 70 01/17/17 00:02 95 BiPAP 70 01/17/17 00:00 95 Bi-Pap 90 01/17/17 00:00 94 01/17/17 00:00 99.8 96 30 109/55 96 01/16/17 23:00 95 01/16/17 22:45 93 90 01/16/17 22:00 86 01/16/17 21:00 88 01/16/17 21:00 95 Non-Rebreather 15.00 01/16/17 20:00 99.0 89 28 97/52 95 01/16/17 20:00 96 01/16/17 20:00 95 Non-Rebreather 15.00 01/16/17 19:00 90 01/16/17 18:00 90 01/16/17 01/16/17 01/17/17 15:00 23:00 07:00 Intake Total 1080 ml 446 ml Output Total 450 ml 500 ml Balance 630 ml -54 ml Intake Oral 720 ml 240 ml IV Total 360 ml 206 ml Output Urine Total 450 ml 500 ml # Bowel Movements 0 0 . Laboratory Tests Test 01/16/17 01/17/17 05:08 04:57 White Blood Count 16.4 TH/MM3 18.7 TH/MM3 Red Blood Count 3.03 MIL/MM3 3.06 MIL/MM3 Hemoglobin 8.0 GM/DL 8.0 GM/DL Hematocrit 24.7 % 25.1 % Mean Corpuscular Volume 81.5 FL 81.9 FL Mean Corpuscular Hemoglobin 26.6 PG 26.2 PG Mean Corpuscular Hemoglobin 32.6 % 32.0 % Concent Red Cell Distribution Width 13.5 % 13.9 % Platelet Count 299 TH/MM3 301 TH/MM3 Mean Platelet Volume 7.5 FL 7.8 FL Laboratory Tests Test 01/16/17 01/16/17 01/17/17 05:08 20:25 04:57 Sodium Level 143 MEQ/L 144 MEQ/L Potassium Level 3.2 MEQ/L 3.0 MEQ/L Chloride Level 100 MEQ/L 103 MEQ/L Carbon Dioxide Level 35.6 MEQ/L 32.7 MEQ/L Anion Gap 7 MEQ/L 8 MEQ/L Blood Urea Nitrogen 24 MG/DL 24 MG/DL Creatinine 1.23 MG/DL 1.12 MG/DL Estimat Glomerular Filtration 56 ML/MIN 62 ML/MIN Rate Random Glucose 120 MG/DL 123 MG/DL Calcium Level 8.0 MG/DL 8.4 MG/DL Phosphorus Level 3.2 MG/DL 2.4 MG/DL Magnesium Level 2.2 MG/DL 2.4 MG/DL Procalcitonin 0.85 ng/mL Microbiology Date/Time Procedure Status Source Growth 01/15/17 11:30 Stool Occult Blood ([facility]) Ordered Stool Stool Pending Imaging Last Impressions Chest X-Ray 01/18/17 0600 Signed Impressions: Service Date/Time: January 04:25 - CONCLUSION: Unchanged diffuse bilateral infiltrates. Ethan Spence Jr., MD CT Angiography 01/13/17 1313 Signed Impressions: Service Date/Time: Friday, January 13, 2017 13:52 - CONCLUSION: 1. No evidence of pulmonary embolism. 2. Diffuse alveolar infiltrates most consistent with pulmonary edema. 3. Small bilateral pleural effusions and cardiomegaly. Pan Soria MD Physical Exam GENERAL: This is a well-nourished, well-developed patient, in no apparent distress. On 50% Non rebreather. SKIN: No rashes, ecchymoses or lesions. Cool and dry. HEAD: Atraumatic. Normocephalic. No temporal or scalp tenderness. EYES: Pupils equal round and reactive. Extraocular motions intact. No scleral icterus. No injection or drainage. ENT: Nose without bleeding, purulent drainage or septal hematoma. Throat without erythema, tonsillar hypertrophy or exudate. Uvula midline. Airway patent. NECK: Trachea midline. Supple, nontender, no meningeal signs. CARDIOVASCULAR: No murmur RESPIRATORY: Breath sounds equal bilaterally but decreased in bases. Basilar crackles. GASTROINTESTINAL: Abdomen soft, non-tender, nondistended. MUSCULOSKELETAL: Right hip surgical site intact with no e.o infection. NEUROLOGICAL: Awake and alert. Grossly non focal Psych: cooperative IV line sites with no e.o infection. Assessment & Plan Remarks Pneumonia plus component of Pulm edema. CHF, Atrial fibrillation Recent Total hip replacement 1 week [employer]. Recs: Continue Cefepime IV Continue Vanco IV (target 15-20) Continue Azithro (ok to change to oral in am) Follow cultures Follow clinically. Sharon Day MD January 17, 2017 17:18
[2017-01-17] MEDS ORDERED: PHARMACY ORDERED LAB ONE (17:45)
[2017-01-17] MEDS ORDERED: PILL SPLITTER OTHER PRN (21:00)
[2017-01-17] MEDS: FLECAINIDE ACETATE 100 MG TAB PO SCH (21:08)
[2017-01-17] MEDS: POTASSIUM CHLOR 20 MEQ PREMIX 100 ML IV SCH ×2 (21:09→23:37)
[2017-01-17] MEDS: LINEZOLID 600 MG TAB PO SCH (22:06)
[2017-01-18] VITALS (27 sets, daily range): BP systolic 100–116; BP diastolic 55–59; PULSE 73–96; RESP 20–28; TEMP 98.3–99.4; O2SAT 50–100
[2017-01-18] MEDS: CHLORHEXIDINE GLUCONATE 2 % 1 PACK (2 CLOTHS) TOP SCH (04:00)
[2017-01-18] MEDS: LEVOTHYROXINE SODIUM 100 MCG TAB PO SCH (05:10)
[2017-01-18] MEDS: LEVOTHYROXINE SODIUM 112 MCG TAB PO SCH (05:10)
[2017-01-18] MEDS: CEFEPIME INJ 2,000 MG in SODIUM CHLORIDE 0.9% INJ 100 ML IV SCH ×2 (05:10→17:51)
--- NOTE | 2017-01-18 05:13 | RADRPT ---
EXAM DATE/TIME: 01/18/2017 04:25 [facility] COMPARISON: CHEST SINGLE AP, January 17, 2017, 5:09. INDICATIONS : Shortness of breath, possible pulmonary disease. MEDICAL HISTORY : Carcinoma, colon. Hiatal hernia. A-Fib SURGICAL HISTORY : None. ENCOUNTER: Subsequent ACUITY: 1 week PAIN SCORE: 0/10 LOCATION: Bilateral chest FINDINGS: Single portable frontal view the chest shows diffuse bilateral pulmonary infiltrates that are unchang ed. No discernible effusions. Heart is normal in size. CONCLUSION: Unchanged diffuse bilateral infiltrates. Ethan Spence Jr., MD on January 18, 2017 at 5:11 Board Certified Radiologist. This report was verified electronically.
[2017-01-18 05:40] LABS: AUTOMATED NEUTROPHIL # 13.9 TH/MM3 (1.8-7.7); BASOPHIL % 0.2 % (0.0-2.0); EOSINOPHIL # 0.1 TH/MM3 (0-0.4); EOSINOPHIL % 0.9 % (0.0-4.0); HEMATOCRIT 25.6 % (39.0-51.0); HEMO FLAGS DIFF FINAL; LYMPH % 8.4 % (9.0-44.0); LYMPHOCYTE # 1.4 TH/MM3 (1.0-4.8); MEAN CELL VOLUME 82.2 FL (80.0-100.0); MEAN CORPUSCULAR HEMOGLOBIN 25.7 PG (27.0-34.0); MEAN CORPUSCULAR HGB CONC 31.3 % (32.0-36.0); MONO % 6.2 % (0.0-8.0); NEUT % 84.3 % (16.0-70.0); PLATELET COUNT 321 TH/MM3 (150-450); RED BLOOD COUNT 3.12 MIL/MM3 (4.50-5.90); RED CELL DISTRIBUTION WIDTH 13.7 % (11.6-17.2); WHITE BLOOD COUNT 16.5 TH/MM3 (4.0-11.0)
[2017-01-18 05:54] LABS: APTT (PATIENT) 42.8 SEC (24.3-30.1)
[2017-01-18 06:01] LABS: BICARBONATE 35.4 MEQ/L (21.0-32.0); MAGNESIUM 2.4 MG/DL (1.5-2.5); POTASSIUM 3.2 MEQ/L (3.5-5.1)
[2017-01-18] MEDS: ATORVASTATIN 20 MG TAB PO SCH (08:26)
[2017-01-18] MEDS: DOCUSATE SODIUM 50 MG/SENNA 8.6 MG TAB PO SCH ×2 (08:26→20:33)
[2017-01-18] MEDS: ACETAMINOPHEN 325 MG TAB PO PRN (08:27)
[2017-01-18] MEDS: ASPIRIN 81 MG CHEW TAB CHEW SCH (08:28)
[2017-01-18] MEDS: AZITHROMYCIN 250 MG TAB PO SCH (08:28)
[2017-01-18] MEDS: FLECAINIDE ACETATE 100 MG TAB PO SCH ×2 (08:28→20:34)
[2017-01-18] MEDS: DIGOXIN 0.125 MG TAB PO SCH (08:29)
[2017-01-18] MEDS: SODIUM CHLORIDE 0.9% FLUSH 10 ML FLUSH IV FLUSH SCH ×2 (08:31→20:33)
[2017-01-18] MEDS: PANTOPRAZOLE SODIUM 40 MG VIAL IV SCH (08:31)
[2017-01-18] MEDS: FUROSEMIDE 20 MG/2 ML VIAL IV PUSH SCH (08:36)
[2017-01-18] MEDS ORDERED: POTASSIUM CHLORIDE 10 MEQ CONTROLLED RELEASE TAB PO SCH (09:00)
[2017-01-18] MEDS: DIGOXIN 0.5 MG/2 ML VIAL IV PUSH SCH (09:00)
[2017-01-18] MEDS: LINEZOLID 600 MG TAB PO SCH ×2 (09:00→20:34)
--- NOTE | 2017-01-18 09:24 | HHI.PR ---
Subjective Remarks Follow up for acute respiratory failure, pulmonary edema, NSTEMI. Patient is currently requiring BiPAP continuously. Per respiratory therapist, even on BiPAP patient's oxygen saturation dropped to 80s. FiO2 was increased to 70% in order to increase oxygenation above 90%. His tolerating BiPAP well. No fever or chills. Objective Vitals Vital Signs Date Time Temp Pulse Resp B/P Pulse Ox O2 Delivery O2 Flow Rate FiO2 01/18/17 09:10 50 50 01/18/17 06:15 75 01/18/17 05:03 73 01/18/17 04:14 81 01/18/17 03:58 98 60 01/18/17 03:24 98.6 83 28 107/59 99 01/18/17 03:17 97 Bi-Pap 12.00 60 01/18/17 03:17 80 01/18/17 02:11 80 01/18/17 01:10 94 01/18/17 01:06 98 60 01/18/17 00:19 96 01/17/17 23:54 98.9 91 30 122/58 93 01/17/17 23:54 93 Bi-Pap 12.00 60 01/17/17 23:54 90 01/17/17 22:38 75 01/17/17 21:05 82 01/17/17 20:12 100 60 01/17/17 20:04 83 01/17/17 19:15 98.0 89 32 104/54 98 01/17/17 19:15 98 Bi-Pap 12.00 60 01/17/17 19:15 90 01/17/17 18:01 79 01/17/17 17:47 97 BiPAP 60 01/17/17 17:00 85 01/17/17 16:07 74 01/17/17 15:56 98 Bi-Pap 12.00 60 01/17/17 15:00 89 01/17/17 15:00 98.6 95 25 103/64 91 01/17/17 14:54 85 01/17/17 14:45 93 60 01/17/17 13:00 87 01/17/17 12:00 81 01/17/17 11:26 97 Bi-Pap 12.00 70 01/17/17 11:24 91 01/17/17 11:00 98.1 107 25 100/65 97 01/17/17 10:30 94 BiPAP 70 01/17/17 10:13 94 70 01/17/17 10:00 101 I/O 01/17/17 01/17/17 01/17/17 01/18/17 01/18/17 01/18/17 07:00 15:00 23:00 07:00 15:00 23:00 Intake Total 446 ml 680 ml 1057 ml Output Total 500 ml 1125 ml 600 ml Balance -54 ml -445 ml 457 ml Intake Oral 240 ml 480 ml 717 ml IV Total 206 ml 200 ml 340 ml Output Urine Total 500 ml 1125 ml 600 ml # Voids 2 # Bowel Movements 0 0 Result Diagram: 01/18/17 0447 01/18/17 044 Imaging Last Impressions Chest X-Ray 01/18/17 0600 Signed Impressions: Service Date/Time: January 04:25 - CONCLUSION: Unchanged diffuse bilateral infiltrates. Ethan Spence Jr., MD CT Angiography 01/13/17 1313 Signed Impressions: Service Date/Time: Friday, January 13, 2017 13:52 - CONCLUSION: 1. No evidence of pulmonary embolism. 2. Diffuse alveolar infiltrates most consistent with pulmonary edema. 3. Small bilateral pleural effusions and cardiomegaly. Pan Soria MD Objective Remarks GENERAL: Resting in bed. On BiPAP. SKIN: Warm and dry. HEAD: Normocephalic. EYES: No scleral icterus. No injection or drainage. NECK: Supple, trachea midline. No JVD or lymphadenopathy. CARDIOVASCULAR: Regular rate and rhythm without murmurs, gallops, or rubs. RESPIRATORY: Moderate air entry, diffuse crackles. GASTROINTESTINAL: Abdomen soft, non-tender, nondistended. MUSCULOSKELETAL: No cyanosis, or edema. BACK: Nontender without obvious deformity. No CVA tenderness. Procedures None. Date of Insertion: January 13, 2017 A/P Problem List: (1) Acute respiratory failure with hypoxia ICD Code: J96.01 Status: Acute (2) Pulmonary edema ICD Code: J81.1 Status: Acute (3) Status post total hip replacement, right ICD Code: Z96.641 Status: Acute (4) NSTEMI (non-ST elevated myocardial infarction) ICD Code: I21.4 Status: Acute Assessment and Plan Mr. Cortez is a pleasant 86-year-old male with a recent history of right hip replacement who presented to the emergency department on 01/13/2017 due to shortness of breath. Patient was managed in the ICU until 01/16/2017. Imaging studies indicate pulmonary edema. Also was found to have NSTEMI. Acute respiratory failure with hypoxia - On BiPAP O2 saturation went down to 80s today 01/18/2017. Acute pulmonary edema - Currently on BiPAP at setting 12 over 5. Wean off O2 requirement as much as is possible. - Discontinued oral Lasix. Continue Lasix 20mg IV BID. This morning, we gave him extra 20mg IV lasix. We may give another 40mg IV lasix at 11:00PM if BP tolerates it. - Discussed with Dr. Ronda Franco ([facility]). We will transfer patient to ICU. If needed, we will consult [facility]. - Consult Pulmonology. Discussed with Dr. Inman. - Tried to contact Portal Administrator Dr. Velazquez (left a voicemail). - Change BiPAP setting to 16/8. - Probable pneumonia, healthcare associated - Procalcitonin 0.85 (elevated). - ID is following. Patient is currently on cefepime, vancomycin, azithromycin. - Atrial fibrillation - NSTEMI - Cardiology is following. Cardiology will consider Cardiac cath in future. - Continue amiodarone 200 mg daily, atorvastatin 20 mg daily, Aspirin 81mg Qday. - Currently on heparin drip. Will try to discuss with Cardiology regarding further need for Heparin drip. - Hypothyroidism - continue levothyroxine 212 g by mouth daily. - Hypokalemia - Potassium 3.2 today. We'll continue to give IV potassium today. - Continue by mouth potassium as well 10 mEq every 8 hours. - Magnesium was 2.4. Full code. Heparin drip. Problem Qualifiers (1) Pulmonary edema: Qualified Code: J81.0 - Acute pulmonary edema Yola Rocha DO January 18, 2017 09:24
[2017-01-18] MEDS ORDERED: FUROSEMIDE 20 MG/2 ML VIAL IV PUSH ONE (09:30)
[2017-01-18 10:20] LABS: BLOOD GAS BASE EXCESS 7.8 mmol/L (-2-2); BLOOD GAS CARBOXYHEMOGLOBIN 1.9 % (0-4); BLOOD GAS HCO3 32 mmol/L (22-26); BLOOD GAS METHEMOGLOBIN 1.1 % (0-2); BLOOD GAS O2 HGB SATURATION 94 % (90-100); BLOOD GAS OXYGEN CONTENT 10.9 Vol % (12.0-20.0); BLOOD GAS PCO2 47 mmHg (38-42); BLOOD GAS PO2 89 mmHg (61-120); BLOOD GAS TOTAL HGB 8.1 G/DL (12.0-16.0); CRITICAL VALUE NO; OXYGEN DEVICE BiPAP; TEMP CORR TO 98.6; VENT SETTINGS IPAP12/EPAP5
[2017-01-18 10:21] LABS: DRAW SITE RT RADIAL; FIO2 70 %; NUMBER OF ARTERIAL PUNCTURES 1; STAT NO; ULNAR PULSE PRESENT
[2017-01-18] MEDS ORDERED: FUROSEMIDE 40 MG/4 ML VIAL IV PUSH ONE (11:00)
[2017-01-18] MEDS: POTASSIUM CHLOR 20 MEQ PREMIX 100 ML IV SCH ×2 (11:01→11:45)
--- NOTE | 2017-01-18 15:49 | EKG ---
Date Performed: 01/18/2017 Time Performed: 05:46:26 PTAGE: 86 years EKG: Atrial fibrillation Extensive ST-T changes may be due to myocardial ischemia Abnormal ECG PREVIOUS TRACING : 01/15/2017 08.42 Compared to previous tracing, the patient is now in atrial fibrillation. DOCTOR: Shahid Perdomo Interpretating Date/Time 01/18/2017 15:46:22
--- NOTE | 2017-01-18 17:37 | HHI.IDPN ---
Subjective Subjective Remarks is an 86 y/o CM with PMHx of paroxysmal atrial fibrillation on retirement amiodarone, no prior ischemic heart disease, recent Right total hip arthroplasty. Per his who provided most of the history patient was doing ok post operatively and participating in PT/OT at home. With this background patient was admitted to the hospital with shortness of breath, nausea and anorexia. Over the last 48 hrs prior to admission patient started getting progressively short of breath and when home health checked his O2 sats at home they were in late 30s. EMS was called, patient was started on oxygen and transported to the ED. In the ED his sats were 58%. CXR in ED showed pulmonary edema. CT angiogram was negative for PE but demonstrated pulmonary edema. Cardiology has been following patient and determined. His cardiac enzymes were 0.68 on admission and later elevated to 1.07. Pertinent positives and negatives: No history of lung disease, COPD, asthma, bronchitis, no history of GI bleeding or acid peptic disease. No history of liver disease. There is no history of significant renal failure, no history of DVT or previous pulmonary thromboembolic disease. He does have a history of colon cancer. ID consulted for evaluation and Mment of persistent leucocytosis, ? Pneumonia in a patient with concomitant CHF, recent Total hip replacement. Overnight events reviewed No fever No rash No diarrhea Antibiotics Cefepime IV Azithro oral Lines Line sites with no e/o infection Past Medical History reviewed. Allergies: Uncoded Allergies: RUBBER (Allergy, Severe, ITCHING, 12/29/16) Objective . Vital Signs Date Time Temp Pulse Resp B/P Pulse Ox O2 Delivery O2 Flow Rate FiO2 01/18/17 17:00 79 01/18/17 16:00 77 01/18/17 15:00 76 01/18/17 15:00 98.7 83 24 115/59 94 01/18/17 15:00 100 Bi-Pap 12.00 70 01/18/17 14:00 77 01/18/17 13:00 79 01/18/17 12:00 78 01/18/17 11:01 100 Bi-Pap 12.00 70 01/18/17 11:01 98.6 78 26 100/55 100 01/18/17 11:01 76 01/18/17 10:40 100 60 01/18/17 10:00 76 01/18/17 09:10 94 50 01/18/17 09:00 80 01/18/17 08:15 98.3 84 26 110/59 95 01/18/17 08:15 94 Bi-Pap 12.00 60 01/18/17 08:00 76 01/18/17 07:00 76 01/18/17 06:15 75 01/18/17 05:03 73 01/18/17 04:14 81 01/18/17 03:58 98 60 01/18/17 03:24 98.6 83 28 107/59 99 01/18/17 03:17 97 Bi-Pap 12.00 60 01/18/17 03:17 80 01/18/17 02:11 80 01/18/17 01:10 94 01/18/17 01:06 98 60 01/18/17 00:19 96 01/17/17 23:54 98.9 91 30 122/58 93 01/17/17 23:54 93 Bi-Pap 12.00 60 01/17/17 23:54 90 01/17/17 22:38 75 01/17/17 21:05 82 01/17/17 20:12 100 60 01/17/17 20:04 83 01/17/17 19:15 98.0 89 32 104/54 98 01/17/17 19:15 98 Bi-Pap 12.00 60 01/17/17 19:15 90 01/17/17 18:01 79 01/17/17 17:47 97 BiPAP 60 01/17/17 01/17/17 01/18/17 15:00 23:00 07:00 Intake Total 680 ml 1057 ml Output Total 1125 ml 600 ml Balance -445 ml 457 ml Intake Oral 480 ml 717 ml IV Total 200 ml 340 ml Output Urine Total 1125 ml 600 ml # Voids 2 # Bowel Movements 0 . Laboratory Tests Test 01/17/17 01/18/17 04:57 04:47 White Blood Count 18.7 TH/MM3 16.5 TH/MM3 Red Blood Count 3.06 MIL/MM3 3.12 MIL/MM3 Hemoglobin 8.0 GM/DL 8.0 GM/DL Hematocrit 25.1 % 25.6 % Mean Corpuscular Volume 81.9 FL 82.2 FL Mean Corpuscular Hemoglobin 26.2 PG 25.7 PG Mean Corpuscular Hemoglobin 32.0 % 31.3 % Concent Red Cell Distribution Width 13.9 % 13.7 % Platelet Count 301 TH/MM3 321 TH/MM3 Mean Platelet Volume 7.8 FL 7.8 FL Neutrophils (%) (Auto) 84.3 % Lymphocytes (%) (Auto) 8.4 % Monocytes (%) (Auto) 6.2 % Eosinophils (%) (Auto) 0.9 % Basophils (%) (Auto) 0.2 % Neutrophils # (Auto) 13.9 TH/MM3 Lymphocytes # (Auto) 1.4 TH/MM3 Monocytes # (Auto) 1.0 TH/MM3 Eosinophils # (Auto) 0.1 TH/MM3 Basophils # (Auto) 0.0 TH/MM3 CBC Comment DIFF FINAL Differential Comment Laboratory Tests Test 01/16/17 01/17/17 01/18/17 20:25 04:57 04:47 Procalcitonin 0.85 ng/mL Sodium Level 144 MEQ/L 143 MEQ/L Potassium Level 3.0 MEQ/L 3.2 MEQ/L Chloride Level 103 MEQ/L 101 MEQ/L Carbon Dioxide Level 32.7 MEQ/L 35.4 MEQ/L Anion Gap 8 MEQ/L 7 MEQ/L Blood Urea Nitrogen 24 MG/DL 24 MG/DL Creatinine 1.12 MG/DL 1.14 MG/DL Estimat Glomerular Filtration 62 ML/MIN 61 ML/MIN Rate Random Glucose 123 MG/DL 119 MG/DL Calcium Level 8.4 MG/DL 8.3 MG/DL Phosphorus Level 2.4 MG/DL Magnesium Level 2.4 MG/DL 2.4 MG/DL Imaging Last Impressions Chest X-Ray 01/18/17 0600 Signed Impressions: Service Date/Time: January 04:25 - CONCLUSION: Unchanged diffuse bilateral infiltrates. Ethan Spence Jr., MD CT Angiography 01/13/17 1313 Signed Impressions: Service Date/Time: Friday, January 13, 2017 13:52 - CONCLUSION: 1. No evidence of pulmonary embolism. 2. Diffuse alveolar infiltrates most consistent with pulmonary edema. 3. Small bilateral pleural effusions and cardiomegaly. Pan Soria MD Physical Exam GENERAL: This is a well-nourished, well-developed patient, in no apparent distress. On 50% Non rebreather. SKIN: No rashes, ecchymoses or lesions. Cool and dry. HEAD: Atraumatic. Normocephalic. No temporal or scalp tenderness. EYES: Pupils equal round and reactive. Extraocular motions intact. No scleral icterus. No injection or drainage. ENT: Nose without bleeding, purulent drainage or septal hematoma. Throat without erythema, tonsillar hypertrophy or exudate. Uvula midline. Airway patent. NECK: Trachea midline. Supple, nontender, no meningeal signs. CARDIOVASCULAR: No murmur RESPIRATORY: Breath sounds equal bilaterally but decreased in bases. Basilar crackles. GASTROINTESTINAL: Abdomen soft, non-tender, nondistended. MUSCULOSKELETAL: Right hip surgical site intact with no e.o infection. NEUROLOGICAL: Awake and alert. Grossly non focal Psych: cooperative IV line sites with no e.o infection. Assessment & Plan Remarks Pneumonia plus component of Pulm edema. CHF, Atrial fibrillation Recent Total hip replacement 1 week [employer]. Recs: Continue Cefepime IV DC Vanco IV. Start Oral Zyvox (will help reduce fluid overload) Continue Azithro (ok to change to oral in am) Follow cultures Follow clinically. Clinically appears to be in fluid overload. since Procalcitonin elevated risk of bacteremia continue antibiotics. Sharon Day MD January 18, 2017 17:37
[2017-01-18] MEDS: FUROSEMIDE 40 MG/4 ML VIAL IV PUSH SCH (17:50)
[2017-01-18] MEDS: POTASSIUM CHLORIDE 10 MEQ CONTROLLED RELEASE TAB PO SCH (20:33)
[2017-01-18] MEDS: HEPARIN-D5W INJ 250 ML IV SCH (22:13)
[2017-01-19] VITALS (14 sets, daily range): BP systolic 104–128; BP diastolic 54–66; PULSE 87–113; RESP 20–35; TEMP 98.3–99.2; O2SAT 86–99
[2017-01-19] MEDS: CHLORHEXIDINE GLUCONATE 2 % 1 PACK (2 CLOTHS) TOP SCH (04:00)
--- NOTE | 2017-01-19 06:01 | RADRPT ---
EXAM DATE/TIME: 01/19/2017 02:38 [facility] COMPARISON: CHEST SINGLE AP, January 18, 2017, 4:25. INDICATIONS : Shortness of breath. MEDICAL HISTORY : Carcinoma, colon. Hiatal hernia. A-Fib SURGICAL HISTORY : None. ENCOUNTER: Subsequent ACUITY: 2 weeks PAIN SCORE: Non-responsive. LOCATION: chest FINDINGS: There continues be bilateral interstitial pulmonary infiltrates without significant change. No signif icant pleural effusions. Heart size is stable. Bony structures are stable. No evidence of pneumothora x. CONCLUSION: No significant interval change. Daryl Martins MD on January 19, 2017 at 5:59 Board Certified Radiologist. This report was verified electronically.
[2017-01-19] MEDS: LEVOTHYROXINE SODIUM 100 MCG TAB PO SCH (06:28)
[2017-01-19] MEDS: CEFEPIME INJ 2,000 MG in SODIUM CHLORIDE 0.9% INJ 100 ML IV SCH ×2 (06:28→17:27)
[2017-01-19] MEDS: LEVOTHYROXINE SODIUM 112 MCG TAB PO SCH (06:28)
--- NOTE | 2017-01-19 06:38 | MB ---
cc: JustinIsraREDMOND,SALBADOR DATE OF CONSULTATION 01/18/2017 REASON FOR CONSULTATION Respiratory failure and pulmonary edema. HISTORY OF PRESENT ILLNESS This is an 86-year-old white male who has had a prior history of cardiomyopathy, has had a right hip replacement done recently by Dr. Linares. The patient went home last week and apparently developed some indigestion and weakness as well as had some cough for two days. He then started to have increasing shortness of breath and was noted to be quite hypoxic and thus [facility] was called and he was brought to the emergency room. Upon admission to the ED he was noted to be quite hypoxic with O2 sat in the low 60s and 50s and a pO2 of 29. The patient was placed on 100% oxygen and a CTA was done which showed no evidence of pulmonary embolism but had some pulmonary infiltrates. He was given IV Lasix and now transferred to the intensive care unit since he remains hypoxic and had to be placed on a BiPAP mask. The patient presently is awake. He denies any chest pain. His O2 sats of 100% on BiPap with FIO2 of 60%. He is receiving subcu Lovenox and further cardiac evaluation is pending. Chest x-ray, however, shows evidence of pulmonary edema diffusely and he is also in atrial fibrillation. PAST HISTORY 1. History of degenerative arthritis. 2. History for atrial fibrillation. 3. He has had a colon resection for cancer of the colon and received chemotherapy. 4. Hypothyroidism. 5. Degenerative arthritis. 6. Surgery also includes hip surgery, ORIF of the right hip. HABITS The patient does not smoke. Alcohol use moderate. ALLERGIES No drug allergy but has ALLERGY TO RUBBER. MED LIST 1. Hydrocodone 7.5 mg q.i.d. p.r.n. 2. Aspirin one daily. 3. Amiodarone 200 mg daily. 4. Synthroid 100 mcg a day. FAMILY HISTORY Noncontributory. SYSTEMS REVIEW The patient has had no headaches or blackout spells. He has some postnasal drip and wheezing, epigastric distress and reflux. No urinary symptoms. He has some joint pains and hip pains and no depression, no anxiety. The remainder of system review is essentially unremarkable except for shortness of breath. PHYSICAL EXAMINATION GENERAL: This is a moderately overweight, elderly white male who is in bed. He is on a BiPap mask, anxious and mildly dyspneic. VITAL SIGNS: Blood pressure 138/70, pulse is 85, respirations 22, temperature 97.2. HEENT: Head normocephalic. Pupils are reactive. Tongue moist. Throat mildly injected. Ears - no inflammation. NECK: Supple with mild venous distension. Trachea midline. CHEST: Distant breath sounds. There are bibasilar crackles, more so on the right side with wheezes throughout both lung moreno. HEART SOUNDS: Irregularly irregular. S1 and S2. No murmur. ABDOMEN: Soft, benign. No mass, no organomegaly. EXTREMITIES: Mild varicosities with edema 1+. Decreased pulses. Reflexes are brisk with no gross motor deficits. SKIN: No lesions are noted. IMPRESSION 1. Acute respiratory failure. 2. Pulmonary edema with cardiomyopathy. 3. History of ORIF of the right hip. 4. Atrial fibrillation with CHF. 5. Non-STEMI. PLAN The patient will be made maintained on BiPap at 16/8, FIO2 of 50%, Lasix 40 mg IV q. 12, potassium supplementation 20 mEq b.i.d. Continue with Lovenox subcu, nebulized DuoNeb solution added q.i.d. We will also continue with antibiotic coverage including Zithromax 500 mg IV daily. The patient will have a cardiac evaluation and 2-D echo ordered and if his clinical condition improves he will be switched to a Venti-mask at 50%. Thank you Dr. Dandre Rocha for this consultation. MD ARCHANA Wells/ALEXANDER /10:54 PM /6:26 AM
[2017-01-19 07:10] LABS: APTT (PATIENT) 41.9 SEC (24.3-30.1)
--- NOTE | 2017-01-19 07:54 | PD.ORT.PN ---
Subjective Post Op Day #: 11 Subjective Remarks He still has not been OOB because of hypoxia. He has no hip pain at this time. His main complaint is respiratory. Distance Walked Has not walked. Objective Vitals Vital Signs Date Time Temp Pulse Resp B/P Pulse Ox O2 Delivery O2 Flow Rate FiO2 01/19/17 05:19 99 60 01/19/17 04:00 89 01/19/17 04:00 93 Bi-Pap 12.00 100 01/19/17 04:00 98.8 89 20 116/57 93 01/19/17 02:20 86 Non-Rebreather 15.00 100 01/19/17 00:27 97 60 01/19/17 00:00 99.1 92 22 128/60 98 01/19/17 00:00 92 01/19/17 00:00 94 Partial Non-Rebreather 01/18/17 22:43 90 60 01/18/17 20:00 94 Partial Non-Rebreather 01/18/17 20:00 99.4 87 20 116/57 94 01/18/17 20:00 87 01/18/17 18:17 80 01/18/17 17:00 79 01/18/17 16:00 77 01/18/17 15:00 76 01/18/17 15:00 98.7 83 24 115/59 94 01/18/17 15:00 100 Bi-Pap 12.00 70 01/18/17 14:00 77 01/18/17 13:00 79 01/18/17 12:00 78 01/18/17 11:01 100 Bi-Pap 12.00 70 01/18/17 11:01 98.6 78 26 100/55 100 01/18/17 11:01 76 01/18/17 10:40 100 60 01/18/17 10:00 76 01/18/17 09:10 94 50 01/18/17 09:00 80 01/18/17 08:15 98.3 84 26 110/59 95 01/18/17 08:15 94 Bi-Pap 12.00 60 01/18/17 08:00 76 I/O 01/18/17 01/18/17 01/18/17 01/19/17 01/19/17 01/19/17 07:00 15:00 23:00 07:00 15:00 23:00 Intake Total 1057 ml 1469 ml 456 ml Output Total 600 ml 825 ml 400 ml Balance 457 ml 644 ml 56 ml Intake Oral 717 ml 660 ml 380 ml IV Total 340 ml 809 ml 76 ml Output Urine Total 600 ml 825 ml 400 ml # Voids 2 # Bowel Movements 0 0 0 Result Diagram: 01/18/1744601/18/17446 Imaging Last 24 hours Impressions Chest X-Ray 01/17/17 0600 Signed Impressions: Service Date/Time: Tuesday, January 17, 2017 05:09 - CONCLUSION: Unchanged diffuse pulmonary infiltrates. Ethan Spence Jr., MD Objective Remarks He is resting comfortably, supine in bed, with a rebreather in place. The neurovascular status is intact. He moves the hip minimally. Assessment & Plan Ortho Post Op Day #: 11 Problem List: (1) Status post total hip replacement, right Plan: Continue postop care . Resume PT/OT when allowed by attending physician. Assessment and Plan Orthopaedically stable. PT/OT when he is allowed to resume therapy. Chart reviewed. Considering his current status, it would probably be appropriate to transfer him to [facility] when he is stable enough for discharge. I will be gone for the next week. If discharged, he has a follow-up appointment already scheduled. A face-to face form was completed at the initial hospitalization. If information is needed, my office should be able to help. there will be another orthopaedic surgeon covering for me in my absence. Please be sure that my office is updated regarding changes in status/location. Tea Linares MD (Charles) January 19, 2017 07:54
[2017-01-19] MEDS: DIGOXIN 0.125 MG TAB PO SCH (08:40)
[2017-01-19] MEDS: ATORVASTATIN 20 MG TAB PO SCH (08:40)
[2017-01-19] MEDS: FLECAINIDE ACETATE 100 MG TAB PO SCH ×2 (08:40→20:43)
[2017-01-19] MEDS: POTASSIUM CHLORIDE 10 MEQ CONTROLLED RELEASE TAB PO SCH ×2 (08:41→20:40)
[2017-01-19] MEDS: DOCUSATE SODIUM 50 MG/SENNA 8.6 MG TAB PO SCH ×2 (08:41→20:41)
[2017-01-19] MEDS: ASPIRIN 81 MG CHEW TAB CHEW SCH (08:41)
[2017-01-19] MEDS: PANTOPRAZOLE SODIUM 40 MG VIAL IV SCH (08:42)
[2017-01-19] MEDS: AZITHROMYCIN 250 MG TAB PO SCH (08:42)
[2017-01-19] MEDS: FUROSEMIDE 40 MG/4 ML VIAL IV PUSH SCH ×2 (08:42→17:27)
[2017-01-19] MEDS: SODIUM CHLORIDE 0.9% FLUSH 10 ML FLUSH IV FLUSH SCH ×2 (08:43→20:40)
[2017-01-19] MEDS: DIGOXIN 0.5 MG/2 ML VIAL IV PUSH SCH (09:00)
[2017-01-19] MEDS: ACETAMINOPHEN 325 MG TAB PO PRN (09:12)
[2017-01-19] MEDS: LINEZOLID 600 MG TAB PO SCH ×2 (09:35→20:40)
--- NOTE | 2017-01-19 10:28 | HHI.IDPN ---
Subjective Subjective Remarks is an 86 y/o CM with PMHx of paroxysmal atrial fibrillation on skilled nursing amiodarone, no prior ischemic heart disease, recent Right total hip arthroplasty. Per his who provided most of the history patient was doing ok post operatively and participating in PT/OT at home. With this background patient was admitted to the hospital with shortness of breath, nausea and anorexia. Over the last 48 hrs prior to admission patient started getting progressively short of breath and when home health checked his O2 sats at home they were in late 30s. EMS was called, patient was started on oxygen and transported to the ED. In the ED his sats were 58%. CXR in ED showed pulmonary edema. CT angiogram was negative for PE but demonstrated pulmonary edema. Cardiology has been following patient and determined. His cardiac enzymes were 0.68 on admission and later elevated to 1.07. Pertinent positives and negatives: No history of lung disease, COPD, asthma, bronchitis, no history of GI bleeding or acid peptic disease. No history of liver disease. There is no history of significant renal failure, no history of DVT or previous pulmonary thromboembolic disease. He does have a history of colon cancer. ID consulted for evaluation and Mment of persistent leucocytosis, ? Pneumonia in a patient with concomitant CHF, recent Total hip replacement. Overnight events reviewed No fever No rash No diarrhea No won High carlos oxygen. Antibiotics Cefepime IV Azithro oral Lines Line sites with no e/o infection Past Medical History reviewed. Allergies: Uncoded Allergies: RUBBER (Allergy, Severe, ITCHING, 12/29/16) Objective . Vital Signs Date Time Temp Pulse Resp B/P Pulse Ox O2 Delivery O2 Flow Rate FiO2 01/19/17 09:23 92 High Flow Nasal Cannula 30.00 80 01/19/17 08:00 98.3 102 22 121/66 99 01/19/17 08:00 87 01/19/17 08:00 93 Bi-Pap 12.00 100 01/19/17 05:19 99 60 01/19/17 04:00 89 01/19/17 04:00 93 Bi-Pap 12.00 100 01/19/17 04:00 98.8 89 20 116/57 93 01/19/17 02:20 86 Non-Rebreather 15.00 100 01/19/17 00:27 97 60 01/19/17 00:00 99.1 92 22 128/60 98 01/19/17 00:00 92 01/19/17 00:00 94 Partial Non-Rebreather 01/18/17 22:43 90 60 01/18/17 20:00 94 Partial Non-Rebreather 01/18/17 20:00 99.4 87 20 116/57 94 01/18/17 20:00 87 01/18/17 18:17 80 01/18/17 17:00 79 01/18/17 16:00 77 01/18/17 15:00 76 01/18/17 15:00 98.7 83 24 115/59 94 01/18/17 15:00 100 Bi-Pap 12.00 70 01/18/17 14:00 77 01/18/17 13:00 79 01/18/17 12:00 78 01/18/17 11:01 100 Bi-Pap 12.00 70 01/18/17 11:01 98.6 78 26 100/55 100 01/18/17 11:01 76 01/18/17 10:40 100 60 01/18/17 01/18/17 01/19/17 15:00 23:00 07:00 Intake Total 1469 ml 456 ml Output Total 825 ml 400 ml Balance 644 ml 56 ml Intake Oral 660 ml 380 ml IV Total 809 ml 76 ml Output Urine Total 825 ml 400 ml # Bowel Movements 0 0 . Laboratory Tests Test 01/18/17 04:47 White Blood Count 16.5 TH/MM3 Red Blood Count 3.12 MIL/MM3 Hemoglobin 8.0 GM/DL Hematocrit 25.6 % Mean Corpuscular Volume 82.2 FL Mean Corpuscular Hemoglobin 25.7 PG Mean Corpuscular Hemoglobin 31.3 % Concent Red Cell Distribution Width 13.7 % Platelet Count 321 TH/MM3 Mean Platelet Volume 7.8 FL Neutrophils (%) (Auto) 84.3 % Lymphocytes (%) (Auto) 8.4 % Monocytes (%) (Auto) 6.2 % Eosinophils (%) (Auto) 0.9 % Basophils (%) (Auto) 0.2 % Neutrophils # (Auto) 13.9 TH/MM3 Lymphocytes # (Auto) 1.4 TH/MM3 Monocytes # (Auto) 1.0 TH/MM3 Eosinophils # (Auto) 0.1 TH/MM3 Basophils # (Auto) 0.0 TH/MM3 CBC Comment DIFF FINAL Differential Comment Laboratory Tests Test 01/18/17 04:47 Sodium Level 143 MEQ/L Potassium Level 3.2 MEQ/L Chloride Level 101 MEQ/L Carbon Dioxide Level 35.4 MEQ/L Anion Gap 7 MEQ/L Blood Urea Nitrogen 24 MG/DL Creatinine 1.14 MG/DL Estimat Glomerular Filtration 61 ML/MIN Rate Random Glucose 119 MG/DL Calcium Level 8.3 MG/DL Magnesium Level 2.4 MG/DL Imaging Last Impressions Chest X-Ray 01/18/17 0600 Signed Impressions: Service Date/Time: January 04:25 - CONCLUSION: Unchanged diffuse bilateral infiltrates. Ethan Spence Jr., MD CT Angiography 01/13/17 1313 Signed Impressions: Service Date/Time: Friday, January 13, 2017 13:52 - CONCLUSION: 1. No evidence of pulmonary embolism. 2. Diffuse alveolar infiltrates most consistent with pulmonary edema. 3. Small bilateral pleural effusions and cardiomegaly. Pan Soria MD Physical Exam GENERAL: This is a well-nourished, well-developed patient, in no apparent distress. On 50% Non rebreather. SKIN: No rashes, ecchymoses or lesions. Cool and dry. HEAD: Atraumatic. Normocephalic. No temporal or scalp tenderness. EYES: Pupils equal round and reactive. Extraocular motions intact. No scleral icterus. No injection or drainage. ENT: Nose without bleeding, purulent drainage or septal hematoma. Throat without erythema, tonsillar hypertrophy or exudate. Uvula midline. Airway patent. NECK: Trachea midline. Supple, nontender, no meningeal signs. CARDIOVASCULAR: No murmur RESPIRATORY: Breath sounds equal bilaterally but decreased in bases. Basilar crackles. GASTROINTESTINAL: Abdomen soft, non-tender, nondistended. MUSCULOSKELETAL: Right hip surgical site intact with no e.o infection. NEUROLOGICAL: Awake and alert. Grossly non focal Psych: cooperative IV line sites with no e.o infection. Assessment & Plan Remarks Pneumonia plus component of Pulm edema. Acute resp failure CHF, Atrial fibrillation Recent Total hip replacement 1 week [employer]. Recs: Continue Cefepime IV Continue Oral Zyvox (will help reduce fluid overload) Continue Azithro (ok to change to oral in am) Follow cultures Follow clinically. Clinically appears to be in fluid overload. since Procalcitonin elevated risk of bacteremia continue antibiotics. covering for me this weekend and available prn. Sharon Day MD January 19, 2017 10:28
--- NOTE | 2017-01-19 11:44 | HHI.PR ---
Subjective Remarks Follow-up Acute respiratory failure with hypoxia/HCAP 01/19/17-patient seen and examined;, positive for shortness of breath but denies any chest pain. Afebrile Objective Vitals Vital Signs Date Time Temp Pulse Resp B/P Pulse Ox O2 Delivery O2 Flow Rate FiO2 01/19/17 09:23 92 High Flow Nasal Cannula 30.00 80 01/19/17 08:00 98.3 102 22 121/66 99 01/19/17 08:00 87 01/19/17 08:00 93 Bi-Pap 12.00 100 01/19/17 05:19 99 60 01/19/17 04:00 89 01/19/17 04:00 93 Bi-Pap 12.00 100 01/19/17 04:00 98.8 89 20 116/57 93 01/19/17 02:20 86 Non-Rebreather 15.00 100 01/19/17 00:27 97 60 01/19/17 00:00 99.1 92 22 128/60 98 01/19/17 00:00 92 01/19/17 00:00 94 Partial Non-Rebreather 01/18/17 22:43 90 60 01/18/17 20:00 94 Partial Non-Rebreather 01/18/17 20:00 99.4 87 20 116/57 94 01/18/17 20:00 87 01/18/17 18:17 80 01/18/17 17:00 79 01/18/17 16:00 77 01/18/17 15:00 76 01/18/17 15:00 98.7 83 24 115/59 94 01/18/17 15:00 100 Bi-Pap 12.00 70 01/18/17 14:00 77 01/18/17 13:00 79 01/18/17 12:00 78 I/O 01/18/17 01/18/17 01/18/17 01/19/17 01/19/17 01/19/17 06:59 14:59 22:59 06:59 14:59 22:59 Intake Total 1057 ml 949 ml 520 ml 456 ml Output Total 600 ml 525 ml 300 ml 400 ml Balance 457 ml 424 ml 220 ml 56 ml Intake Oral 717 ml 240 ml 420 ml 380 ml IV Total 340 ml 709 ml 100 ml 76 ml Output Urine Total 600 ml 525 ml 300 ml 400 ml # Voids 2 # Bowel Movements 0 0 0 0 Result Diagram: 01/18/1744601/18/17 044 Imaging Last Impressions Chest X-Ray 01/19/17 0600 Signed Impressions: Service Date/Time: Thursday, January 19, 2017 02:38 - CONCLUSION: No significant interval change. Daryl Martins MD CT Angiography 01/13/17 1313 Signed Impressions: Service Date/Time: Friday, January 13, 2017 13:52 - CONCLUSION: 1. No evidence of pulmonary embolism. 2. Diffuse alveolar infiltrates most consistent with pulmonary edema. 3. Small bilateral pleural effusions and cardiomegaly. Pan Soria MD Objective Remarks GENERAL: NAD SKIN: Warm and dry. HEAD: Normocephalic. EYES: No scleral icterus. No injection or drainage. NECK: Supple, trachea midline. No JVD or lymphadenopathy. CARDIOVASCULAR: Regular rate and rhythm without murmurs, gallops, or rubs. RESPIRATORY: Breath sounds diminished bilaterally. No accessory muscle use. GASTROINTESTINAL: Abdomen soft, non-tender, nondistended. MUSCULOSKELETAL: No cyanosis, or edema. BACK: Nontender without obvious deformity. No CVA tenderness. Procedures None. Date of Insertion: January 13, 2017 A/P Problem List: (1) Acute respiratory failure with hypoxia ICD Code: J96.01 Status: Acute (2) Pulmonary edema ICD Code: J81.1 Status: Acute (3) Status post total hip replacement, right ICD Code: Z96.641 Status: Acute (4) NSTEMI (non-ST elevated myocardial infarction) ICD Code: I21.4 Status: Acute Assessment and Plan 86-year-old man with Acute respiratory failure with hypoxia - On BiPAP O2 Acute pulmonary edema - Currently on BiPAP - On Lasix 40mg IV BID however consider Lasix drip if no improvement. - Consult Pulmonology input appreciated. - Probable pneumonia, healthcare associated - Procalcitonin 0.85 (elevated). - ID is following. currently on cefepime, vancomycin, azithromycin. - Atrial fibrillation - NSTEMI - Continue amiodarone 200 mg daily, atorvastatin 20 mg daily, Aspirin 81mg Qday. - Currently on heparin drip. - Hypothyroidism - continue levothyroxine 212 g by mouth daily. - Hypokalemia - Give potassium 60 mEq 1 now and monitor Status post recent right hip replacement -PT to treat and eval. Appreciate input from orthopedic surgery Full code. Heparin drip. Total critical care time spent 35 minutes Problem Qualifiers (1) Pulmonary edema: Qualified Code: J81.0 - Acute pulmonary edema Deng Muro MD January 19, 2017 11:44
[2017-01-19] MEDS ORDERED: POTASSIUM CHLORIDE 10 MEQ CONTROLLED RELEASE TAB PO ONE (13:00)
--- NOTE | 2017-01-19 18:23 | HHI.PR ---
Subjective Remarks He feels better . Now on a High flow O2 N/C. output was adequate. Objective Vital Signs Date Time Temp Pulse Resp B/P Pulse Ox O2 Delivery O2 Flow Rate FiO2 01/19/17 17:48 95 High Flow Nasal Cannula 30.00 90 01/19/17 16:00 98 Bi-Pap 12.00 100 01/19/17 16:00 98.7 102 28 120/66 95 01/19/17 16:00 102 01/19/17 15:10 93 75 01/19/17 12:00 95 Nasal Cannula 85 01/19/17 12:00 110 01/19/17 12:00 98.5 110 24 104/54 95 01/19/17 09:23 92 High Flow Nasal Cannula 30.00 80 01/19/17 08:00 98.3 102 22 121/66 99 01/19/17 08:00 87 01/19/17 08:00 93 Bi-Pap 12.00 100 01/19/17 05:19 99 60 01/19/17 04:00 89 01/19/17 04:00 93 Bi-Pap 12.00 100 01/19/17 04:00 98.8 89 20 116/57 93 01/19/17 02:20 86 Non-Rebreather 15.00 100 01/19/17 00:27 97 60 01/19/17 00:00 99.1 92 22 128/60 98 01/19/17 00:00 92 01/19/17 00:00 94 Partial Non-Rebreather 01/18/17 22:43 90 60 01/18/17 20:00 94 Partial Non-Rebreather 01/18/17 20:00 99.4 87 20 116/57 94 01/18/17 20:00 87 01/18/17 20:00 94 Partial Rebreather I/O 01/18/17 01/18/17 01/18/17 01/19/17 01/19/17 01/19/17 07:00 15:00 23:00 07:00 15:00 23:00 Intake Total 1057 ml 1469 ml 456 ml 696 ml 100 ml Output Total 600 ml 825 ml 400 ml 850 ml Balance 457 ml 644 ml 56 ml -154 ml 100 ml Intake Oral 717 ml 660 ml 380 ml 620 ml 100 ml IV Total 340 ml 809 ml 76 ml 76 ml Output Urine Total 600 ml 825 ml 400 ml 850 ml # Voids 2 # Bowel Movements 0 0 0 0 Result Diagram: 01/18/1744601/18/17446 Objective Remarks GENERAL: This is a moderately overweight, elderly white male who is in bed. He is anxious and mildly dyspneic. HEENT: Head normocephalic. Pupils are reactive. Tongue moist. Throat mildly injected. Ears - no inflammation. NECK: Supple with mild venous distension. Trachea midline. CHEST: Distant breath sounds. There are bibasilar crackles, more so on the right side with wheezes throughout both lung moreno. HEART SOUNDS: Irregularly irregular. S1 and S2. No murmur. ABDOMEN: Soft, benign. No mass, no organomegaly. EXTREMITIES: Mild edema 1+. Decreased pulses. Reflexes are 1 + with no gross motor deficits. SKIN: No lesions are noted. Assessment and Plan Assessment and Plan IMPRESSION 1. Acute respiratory failure. 2. Pulmonary edema with cardiomyopathy. 3. History of ORIF of the right hip. 4. Atrial fibrillation with CHF. 5. Non-STEMI. Plan : 1. Wean FIO2 to 50 %. 2. Continue Lasix 40 mg IV BID. 3. Chest X [place] in am. 4. Continue antibiotics. 5. Nebs qid , duoneb. 6. Cardiac Evaluation Steven Inman MD January 19, 2017 18:23
[2017-01-19 23:50] LABS: BLOOD GAS CARBOXYHEMOGLOBIN 2.1 % (0-4); BLOOD GAS HCO3 32 mmol/L (22-26); BLOOD GAS METHEMOGLOBIN 1.1 % (0-2); BLOOD GAS O2 HGB SATURATION 82 % (90-100); BLOOD GAS OXYGEN CONTENT 10.9 Vol % (12.0-20.0); BLOOD GAS PCO2 42 mmHg (38-42); BLOOD GAS PO2 48 mmHg (61-120); BLOOD GAS TOTAL HGB 9.4 G/DL (12.0-16.0); TEMP CORR TO 98.6
[2017-01-19 23:52] LABS: CRITICAL VALUE YES
[2017-01-20] VITALS (13 sets, daily range): BP systolic 85–105; BP diastolic 51–59; PULSE 83–117; RESP 20–34; TEMP 97.8–99.3; O2SAT 77–98
[2017-01-20 00:03] LABS: OXYGEN DEVICE NRB&HFNC
[2017-01-20 00:04] LABS: DRAW SITE RT RADIAL; FIO2 100 %; LITER FLOW 30 L/M; NUMBER OF ARTERIAL PUNCTURES 1; STAT NO; ULNAR PULSE PRESENT
[2017-01-20] MEDS ORDERED: FUROSEMIDE 40 MG/4 ML VIAL IV PUSH ONE (00:15)
[2017-01-20] MEDS ORDERED: LORazepam 2 MG/ML VIAL IV PUSH ONE (00:45)
[2017-01-20 01:32] LABS: BLOOD GAS BASE EXCESS 7.6 mmol/L (-2-2); BLOOD GAS CARBOXYHEMOGLOBIN 2.1 % (0-4); BLOOD GAS HCO3 31 mmol/L (22-26); BLOOD GAS METHEMOGLOBIN 1.3 % (0-2); BLOOD GAS O2 HGB SATURATION 84 % (90-100); BLOOD GAS OXYGEN CONTENT 11.7 Vol % (12.0-20.0); BLOOD GAS PCO2 40 mmHg (38-42); BLOOD GAS PO2 51 mmHg (61-120); BLOOD GAS TOTAL HGB 9.9 G/DL (12.0-16.0); TEMP CORR TO 98.6
[2017-01-20 01:33] LABS: CRITICAL VALUE YES; DRAW SITE RT RADIAL; FIO2 100 %; NUMBER OF ARTERIAL PUNCTURES 1; OXYGEN DEVICE BIPAP; STAT NO; ULNAR PULSE PRESENT; VENT SETTINGS IPAP 16/ EPAP 10
[2017-01-20] MEDS ORDERED: ETOMIDATE 20 MG/10 ML VIAL IV PUSH ONE (02:00)
[2017-01-20] MEDS ORDERED: SUCCINYLCHOLINE CHLORIDE 200 MG/10 ML VIAL IV PUSH ONE (02:00)
--- NOTE | 2017-01-20 02:02 | HHI.PR ---
Blank section for building S: Received call from nurse [id number] reporting patient was tachycardic tachypneic O: 2320 ABGs resulted pH 7.49, PO2 48 PCO2 42 bicarbonate 32 base excess 8.0 Patient evaluated noted to be anxious in appearance Tachypneic, Poor air entry Tachycardic 0115 Repeat ABGs resulted pH 7.50, PO2 51 PCO2 40 bicarbonate 31 base excess 7.6 A/P: Respiratory distress BiPaP 40mg of IV Lasix Stat consult to Dr. Cisneros filter assembler for respiratory distress Discussed with Dr. Fox, nursing, Dr. Cisneros and patient ElifMartina [place] BAMBI January 20, 2017 02:02
[2017-01-20] MEDS: HEPARIN-D5W INJ 250 ML IV SCH (02:19)
[2017-01-20] MEDS ORDERED: PROPOFOL 1000 MG/100 ML INJ 100 ML ONE (02:40)
--- NOTE | 2017-01-20 02:43 | HHI.CCPN ---
Subjective Remarks/Hospital Course Patient is an 86-year-old male that presented to the ED with complaints of shortness of breath. As per EMS, patient had a right hip replacement performed on Sunday by Dr. Linares. Patient reports that he was discharged to home on . Patient reports that he felt fine after his discharge, and reported that last evening he had episodes of nausea, and indigestion so he decided not to take his second dose of ASA. Patients reports that patient had the chills, reports that he was feeling weak and has had a productive cough since last night.. Reports that this morning, he was complaining of shortness of breath. When patient's home nurse arrived, she noted that patients pulse ox was 35% on room air. Patient does not use home O2. EMS were called, fire rescue reports that patient's pulse ox was 50% on room air. Patient was put on a nonrebreather which brought his pulse ox to 80%. When EMS arrived on scene, patient's pulse ox went to the low 90s on a nonrebreather. In the ED ABG was obtained and the patient was noted to have an O2 sat duration of 56% on room air with a PA O2 of 29. The patient was placed on 100% O2 imaging studies were performed showing pulmonary edema, CTA performed negative for pulmonary embolus. The patient was given 80 mg of furosemide IV with good diuresis. Initial troponin was noted to be elevated the patient received Lovenox subcutaneous 1 dose, and an aspirin 81 mg. Patient does have history of hypothyroidism, CHF, A. fib, hypertension, colon cancer, he currently takes a baby aspirin and is not on any anticoagulants. Critical care medicine was consult for management. Subjective: 01/14: Tmax 98.0. WBC count trending down. Troponins was noted to be elevated. Atorvastatin added to medication regimen. The patient's chest x-ray revealed slight improvement in his pulmonary edema additional Lasix 40 mg IV given this a.m.. Cardiology consulted 01/13, appreciate recommendations The patient continued on BiPAP at 40% overnight we'll continue to attempt to wean to facemask this a.m.. Patient is tolerating a clear liquid diet. 01/15: Tmax 99.2. Morning labs pending. Patient was noted to have an episode of nausea last evening, given Zofran with resolution of symptoms. Concern for cardiac ischemia, EKG ordered this a.m.. Troponin level 1.[address] Linares and obtained clearance to begin heparin infusion.Echo showed elevated Transvalvular gradient w/ mean of 32, and Peak of 57. Patient given Lasix, this a.m.. 01/16: Tmax 99.8. The patient was seen by his legal project manager, Dr. Barrow last evening. Per report from the RN, Dr. Barrow plans to do a cardiac catheterization in the near future, when respiratory status improves. The patient received a total of 240 mg of Lasix in the last 24 hours, with 3 L diuresed. The patient had a short episode of atrial fib last night, and converted without any intervention .Persistent leukocytosis noted, ID consulted. 01/20 critical care medicine was reconsulted due to respiratory distress and failure, despite the aggressive diuresis and a BiPAP treatment patient's sats remained at low 80s with a respiratory rate 30s. Patient was intubated due to respiratory failure Objective Vital Signs Date Time Temp Pulse Resp B/P Pulse Ox O2 Delivery O2 Flow Rate FiO2 01/20/17 00:04 77 100 01/19/17 22:10 Non-Rebreather 15.00 01/19/17 20:00 99.2 113 35 106/57 Intake and Output 01/19/17 01/19/17 01/20/17 08:00 16:00 00:00 Intake Total 456 ml 696 ml 100 ml Output Total 400 ml 850 ml Balance 56 ml -154 ml 100 ml Result Diagram: 01/18/17 0447 01/18/17 0447 Other Results Laboratory Tests Test 01/19/17 01/20/17 23:20 01:15 Blood Gas Puncture Site RT RADIAL RT RADIAL Blood Gas Patient Temperature 98.6 98.6 Blood Gas HCO3 32 mmol/L 31 mmol/L (22-26) (22-26) Blood Gas Base Excess 8.0 mmol/L 7.6 mmol/L (-2-2) (-2-2) Blood Gas Oxygen Saturation 82 % (90-100) 84 % (90-100) Arterial Blood pH 7.49 7.50 (7.380-7.420) (7.380-7.420) Arterial Blood Partial 42 mmHg (38-42) 40 mmHg (38-42) Pressure CO2 Arterial Blood Partial 48 mmHg 51 mmHg Pressure O2 (61-120) (61-120) Arterial Blood Oxygen Content 10.9 Vol % 11.7 Vol % (12.0-20.0) (12.0-20.0) Arterial Blood 2.1 % (0-4) 2.1 % (0-4) Carboxyhemoglobin Arterial Blood Methemoglobin 1.1 % (0-2) 1.3 % (0-2) Blood Gas Hemoglobin 9.4 G/DL 9.9 G/DL (12.0-16.0) (12.0-16.0) Oxygen Delivery Device [id number]&HFNC BIPAP Blood Gas Liter Flow 30 L/M Blood Gas Inspired Oxygen 100 % 100 % Blood Gas Ventilator Setting IPAP 16/ EPAP 10 Imaging Last Impressions Chest X-Ray 01/16/17 0600 Signed Impressions: Service Date/Time: Monday, January 16, 2017 06:29 - CONCLUSION: Unchanged diffuse bilateral pulmonary infiltrates. Ethan Spence Jr., MD CT Angiography 01/13/17 1313 Signed Impressions: Service Date/Time: Friday, January 13, 2017 13:52 - CONCLUSION: 1. No evidence of pulmonary embolism. 2. Diffuse alveolar infiltrates most consistent with pulmonary edema. 3. Small bilateral pleural effusions and cardiomegaly. Pan Soria MD Last Impressions Chest X-Ray 01/15/17 0000 Signed Impressions: Service Date/Time: Sunday, January 15, 2017 07:54 - CONCLUSION: Cardiomegaly with diffuse bilateral pulmonary opacities likely pulmonary edema CHF. Deng Nicholas MD CT Angiography 01/13/17 1313 Signed Impressions: Service Date/Time: Friday, January 13, 2017 13:52 - CONCLUSION: 1. No evidence of pulmonary embolism. 2. Diffuse alveolar infiltrates most consistent with pulmonary edema. 3. Small bilateral pleural effusions and cardiomegaly. Pan Soria MD Last Impressions CT Angiography 01/13/17 1313 Signed Impressions: Service Date/Time: Friday, January 13, 2017 13:52 - CONCLUSION: 1. No evidence of pulmonary embolism. 2. Diffuse alveolar infiltrates most consistent with pulmonary edema. 3. Small bilateral pleural effusions and cardiomegaly. Pan Soria MD Chest X-Ray 01/13/17 1241 Signed Impressions: Service Date/Time: Friday, January 13, 2017 12:42 - CONCLUSION: 1. Development of diffuse interstitial prominence and small effusion suggesting congestive failure. Mega Monzon MD Objective Remarks GENERAL: Elderly gentleman on nonrebreather, no respiratory distress noted SKIN: Warm and dry. HEAD: Atraumatic. Normocephalic. EYES: Pupils equal and round. No scleral icterus. No injection or drainage. ENT: No nasal bleeding or discharge. Mucous membranes pink and moist. NECK: Trachea midline. No JVD. CARDIOVASCULAR: Normal rate, regular rhythm. Murmur 2/6 noted left sternal border RESPIRATORY: No accessory muscle use. Fine crackles noted in bases. Breath sounds equal bilaterally. GASTROINTESTINAL: Abdomen soft, non-tender, nondistended. No guarding. MUSCULOSKELETAL: Extremities without clubbing, cyanosis, or edema. No obvious deformities. NEUROLOGICAL: Awake and alert. RASS 0. No gross focal/sensory deficits. Follows commands in all 4 extremities. Procedures None. Date of Insertion: January 13, 2017 A/P Assessment and Plan This is a 86-year-old gentleman status post right total hip arthroplasty Sun,01/08 recently discharged from the hospital, with noted hypoxemic respiratory failure secondary to john, most likely flash pulmonary edema. The patient has a remote cardiac history of noted A. fib, and CHF currently in sinus rhythm. The patient's lactate level was also noted to be slightly elevated, possibly secondary to ischemia or sepsis. Neurologic: Sedated and intubated Propofol/fentanyl/Versed for vent synchrony Neurochecks per ICU protocol Respiratory: Acute hypoxemic respiratory failure Pulmonary edema Unresponsive to diuresis and BiPAP Intubated Continue mechanical ventilation CXR a.m. and ABG /6CTA no evidence of pulmonary embolus. Diffuse alveolar infiltrates consistent with pulmonary edema. Small bilateral pleural effusions. Cardiomegaly Maintain O2 sat greater than 92% Bronchodilators every 4 hours when necessary Maintain head of bed 30 01/19 CXR-pulmonary edema 01/20 intubated Cardiovascular: NSTEMI History of A. fib CHF Cardiomegaly Grade 1 diastolic dysfunction Aortic Stenosis Given aspirin, Lovenox in ED 01/13 Cardiology consulted 01/13, appreciate recommendations Echocardiogram 01/14-ejection fraction 50-55%,no RWMA, diastolic dysfunction, tricuspid valve mild regurg, mitral valve mild regurg.PASP 54 mmHg elevated transvalvular gradients Continue Atorvastatin 20 mg daily home med, and amiodarone continued Initial troponin 0.68->1.44 Continue ASA 81 mg BNP 782 Patient's private legal project manager is [facility] 01/14 atrial fibrillation controlled, intermittently with resolution normal sinus rhythm. Patient continues on home dose amiodarone 200 mg twice a day 01/15 Heparin infusion initiated after receiving clearance from Orthopedic surgeon , Dr. Linares 01/15 Management per Cardiology -Dr. Barrow, tentative plans for cardiac catheterization per report Renal: Renal insufficiency Insert Kinney, monitor urine output -- Strict I/Os FEN/GI: Hyperkalemia-resolved Hiatal hernia Lasix 40 mg IV BID x 3 days per Cards Monitor BMP Hep-Lock IV Protonix 40 mg IV Heart healthy diet Ensure supplement shakes Bowel regimen Heme/ID: Lactic acidosis Persistent Leukocytosis F/U blood urine and sputum cultures -NGTD Initial Lactate level 2.7, follow up serial lactate level possibly 2/2 ischemia or infectious process Antibiotics received in the ED included Zosyn, and vancomycin Patient placed on empiric antibiotics cefepime, vancomycin and azithromycin on - will de-escalate with resolution of leukocytosis Monitor CBC ID consulted Endocrine: Hyperglycemia of critical illness Hypothyroidism Obtain TSH normal Synthroid home medication 212 mcgs/d Glucose monitoring per ICU protocol. Low-dose regimen -- SSI Physical therapy ampulla mentation per Dr. Tran, patient is status post right total hip arthroplasty POD #8 Prophylaxis: GI Prophylaxis Protonix DVT Prophylaxis -- SCDs Heparin infusion Lines: Peripheral IVs 2. Central line if indicated Critical Care: The total critical care time was 35 minutes. Time to perform other separately billable procedures was not included in the critical care time. Shiva Cisneros MD January 20, 2017 02:43
[2017-01-20] MEDS ORDERED: MIDAZOLAM 100 MG/ML INJ 100 ML IV SCH (03:30)
[2017-01-20] MEDS: CHLORHEXIDINE GLUCONATE 2 % 1 PACK (2 CLOTHS) TOP SCH (04:00)
--- NOTE | 2017-01-20 04:11 | PD.PROCEDR ---
Procedure Note Procedure Endotracheal Intubation A time-out was completed verifying correct patient, procedure, site, positioning , and special equipment if applicable. The patient was placed in a flat position. Sedation was obtained using Etomidate 20mg. The patient was easily ventilated using an ambu bag. The [employer]/ MAC 4 BLADE was used and inserted into the oropharynx at which time there was a Grade 1 view of the vocal cords. A 8-kiswahili endotracheal tube was inserted and visualized going through the vocal cords. The stylette was removed. Colorimetric change was visualized on the CO2 meter. Breath sounds were heard in both lung moreno equally. The endotracheal tube was placed at 23 cm, measured at the teeth. A chest x-ray was ordered to assess for pneumothorax and verify endotrachealtube placement. Estimated Blood Loss: 0 The patient tolerated the procedure well and there were no complications. Shiva Cisneros MD January 20, 2017 04:10
[2017-01-20 04:36] LABS: BLOOD GAS BASE EXCESS 7.6 mmol/L (-2-2); BLOOD GAS HCO3 32 mmol/L (22-26); BLOOD GAS METHEMOGLOBIN 1.3 % (0-2); BLOOD GAS O2 HGB SATURATION 96 % (90-100); BLOOD GAS OXYGEN CONTENT 12.6 Vol % (12.0-20.0); BLOOD GAS PCO2 46 mmHg (38-42); BLOOD GAS PO2 137 mmHg (61-120); BLOOD GAS TOTAL HGB 9.2 G/DL (12.0-16.0); CRITICAL VALUE NO; OXYGEN DEVICE VENTILATOR; TEMP CORR TO 98.6; VENT SETTINGS PC/AC
[2017-01-20 04:37] LABS: DRAW SITE RT BRACHIAL; FIO2 100 %; NUMBER OF ARTERIAL PUNCTURES 1; STAT NO; ULNAR PULSE PRESENT
--- NOTE | 2017-01-20 04:54 | RADRPT ---
EXAM DATE/TIME: 01/20/2017 03:01 [place] COMPARISON: CHEST SINGLE AP, January 19, 2017, 2:38. INDICATIONS : E-T tube placement. MEDICAL HISTORY : Carcinoma, lung. Hiatal hernia. A-Fib SURGICAL HISTORY : None. ENCOUNTER: Subsequent ACUITY: 2 weeks PAIN SCORE: Non-responsive. LOCATION: Bilateral chest FINDINGS: Status post placement of an endotracheal tube. The ET tube appears to be in good position. There is n o pneumothorax. There continues to be bilateral interstitial pulmonary infiltrates without significan t change compared to the prior exam. No significant pleural effusions. Heart size is stable. Bony str uctures are stable. CONCLUSION: 1. ET tube in good position. 2. No pneumothorax. 3. Stable bilateral pulmonary interstitial infiltrates. Daryl Martins MD on January 20, 2017 at 4:51 Board Certified Radiologist. This report was verified electronically.
[2017-01-20 05:34] LABS: AUTOMATED NEUTROPHIL # 26.1 TH/MM3 (1.8-7.7); BASOPHIL # 0.1 TH/MM3 (0-0.2); BASOPHIL % 0.3 % (0.0-2.0); EOSINOPHIL # 0.1 TH/MM3 (0-0.4); EOSINOPHIL % 0.3 % (0.0-4.0); HEMATOCRIT 29.2 % (39.0-51.0); HEMO FLAGS DIFF FINAL; LYMPH % 2.9 % (9.0-44.0); LYMPHOCYTE # 0.8 TH/MM3 (1.0-4.8); MEAN CELL VOLUME 81.3 FL (80.0-100.0); MEAN CORPUSCULAR HGB CONC 30.7 % (32.0-36.0); MONO % 6.2 % (0.0-8.0); NEUT % 90.3 % (16.0-70.0); PLATELET COUNT 429 TH/MM3 (150-450); RED BLOOD COUNT 3.59 MIL/MM3 (4.50-5.90); WHITE BLOOD COUNT 28.9 TH/MM3 (4.0-11.0)
[2017-01-20 05:42] LABS: APTT (PATIENT) 37.9 SEC (24.3-30.1)
[2017-01-20 05:57] LABS: BICARBONATE 35.1 MEQ/L (21.0-32.0); POTASSIUM 4.2 MEQ/L (3.5-5.1)
[2017-01-20] MEDS: LEVOTHYROXINE SODIUM 112 MCG TAB PO SCH ×2 (06:00→09:23)
[2017-01-20] MEDS: LEVOTHYROXINE SODIUM 100 MCG TAB PO SCH ×2 (06:00→09:23)
[2017-01-20] MEDS: CEFEPIME INJ 2,000 MG in SODIUM CHLORIDE 0.9% INJ 100 ML IV SCH ×2 (06:22→18:22)
[2017-01-20] MEDS: PROPOFOL 1000 MG/100 ML INJ 100 ML IV SCH ×2 (06:40→09:24)
[2017-01-20] MEDS: POTASSIUM CHLORIDE 10 MEQ CONTROLLED RELEASE TAB PO SCH ×2 (09:00→21:41)
[2017-01-20] MEDS: LINEZOLID 600 MG TAB PO SCH ×2 (09:00→21:41)
[2017-01-20] MEDS: DOCUSATE SODIUM 50 MG/SENNA 8.6 MG TAB PO SCH ×2 (09:00→21:41)
[2017-01-20] MEDS: DIGOXIN 0.125 MG TAB PO SCH (09:00)
[2017-01-20] MEDS: ASPIRIN 81 MG CHEW TAB CHEW SCH (09:06)
[2017-01-20] MEDS: AZITHROMYCIN 250 MG TAB PO SCH (09:06)
[2017-01-20] MEDS: ATORVASTATIN 20 MG TAB PO SCH (09:06)
[2017-01-20] MEDS: FLECAINIDE ACETATE 100 MG TAB PO SCH ×2 (09:06→17:05)
[2017-01-20] MEDS: PANTOPRAZOLE SODIUM 40 MG VIAL IV SCH (09:07)
[2017-01-20] MEDS: DIGOXIN 0.5 MG/2 ML VIAL IV PUSH SCH (09:07)
[2017-01-20] MEDS: FUROSEMIDE 40 MG/4 ML VIAL IV PUSH SCH ×2 (10:15→18:22)
[2017-01-20] MEDS: SODIUM CHLORIDE 0.9% FLUSH 10 ML FLUSH IV FLUSH SCH (10:16)
[2017-01-20] MEDS ORDERED: POTASSIUM PHOSPHATE MONOBASIC 500 MG TAB PO PRN (11:45)
[2017-01-20] MEDS ORDERED: SODIUM PHOSPHATE INJ 30 MMOL in SODIUM CHLOR 0.9% 250 ML INJ 240 ML IV PRN (11:45)
[2017-01-20] MEDS ORDERED: MAGNESIUM SULFATE INJ 4 GM in SODIUM CHLORIDE 0.9% INJ 92 ML IV PRN (11:45)
[2017-01-20] MEDS ORDERED: POTASSIUM PHOSPHATE MONOBASIC 500 MG TAB PO/TUBE PRN (11:45)
[2017-01-20] MEDS ORDERED: MAGNESIUM OXIDE 400 MG TAB PO PRN (11:45)
[2017-01-20] MEDS ORDERED: MAGNESIUM SULFATE INJ 2 GM in SODIUM CHLORIDE 0.9% INJ 96 ML IV PRN (11:45)
[2017-01-20] MEDS ORDERED: POTASSIUM CHLOR 20 MEQ PREMIX 100 ML IV PRN ×2 (11:45)
[2017-01-20] MEDS ORDERED: POTASSIUM CHLOR 40 MEQ PREMIX 100 ML IV PRN ×2 (11:45)
[2017-01-20] MEDS: fentaNYL DRIP 250 ML IV SCH (12:08)
[2017-01-20 13:09] LABS: APTT (PATIENT) 49.1 SEC (24.3-30.1)
--- NOTE | 2017-01-20 15:02 | HHI.PR ---
Subjective Remarks Intubated for progressive resp failure . Now on 40 % FIO2 output was adequate. On antibiotics Objective Vital Signs Date Time Temp Pulse Resp B/P Pulse Ox O2 Delivery O2 Flow Rate FiO2 01/20/17 12:00 99.3 105 26 102/58 94 01/20/17 12:00 75 01/20/17 12:00 86 01/20/17 08:00 90 01/20/17 08:00 86 01/20/17 08:00 98 Mechanical Ventilator 90 01/20/17 08:00 97.8 83 28 85/51 93 01/20/17 07:48 98 75 01/20/17 04:38 97 90 01/20/17 04:00 117 01/20/17 04:00 90 01/20/17 04:00 99.0 117 34 103/57 97 01/20/17 04:00 97 Mechanical Ventilator 90 01/20/17 03:10 97 100 01/20/17 00:04 77 100 01/20/17 00:00 85 Nasal Cannula 80 01/20/17 00:00 113 01/19/17 22:10 92 Non-Rebreather 15.00 100 01/19/17 21:13 93 High Flow Nasal Cannula 30.00 90 01/19/17 20:00 99.2 113 35 106/57 93 01/19/17 20:00 113 01/19/17 20:00 93 Nasal Cannula 80 01/19/17 18:00 96 Nasal Cannula 100 01/19/17 17:48 95 High Flow Nasal Cannula 30.00 90 01/19/17 16:00 98 Bi-Pap 12.00 100 01/19/17 16:00 98.7 102 28 120/66 95 01/19/17 16:00 102 01/19/17 15:10 93 75 I/O 01/19/17 01/19/17 01/19/17 01/20/17 01/20/17 01/20/17 07:00 15:00 23:00 07:00 15:00 23:00 Intake Total 456 ml 696 ml 100 ml 120 ml 293 ml Output Total 400 ml 850 ml 750 ml 285 ml Balance 56 ml -154 ml 100 ml -630 ml 8 ml Intake Oral 380 ml 620 ml 100 ml 0 ml 0 ml IV Total 76 ml 76 ml 120 ml 243 ml Tube Irrigant 50 ml Output Urine Total 400 ml 850 ml 750 ml 250 ml Gastric Drainage Total 35 ml # Bowel Movements 0 0 0 0 Result Diagram: 01/20/1744101/20/17441 Objective Remarks GENERAL: This is a moderately overweight, elderly white male who is on the vent. HEENT: Head normocephalic. Pupils are reactive. Tongue moist. NECK: Supple with mild venous distension. Trachea midline. CHEST: Distant breath sounds. There are bibasilar crackles, more so on the right side with wheezes throughout both lung moreno. HEART SOUNDS: Irregularly irregular. S1 and S2. No murmur. ABDOMEN: Soft, benign. No mass, no organomegaly. EXTREMITIES: Mild edema 1+. Decreased pulses. Sedated. SKIN: No lesions are noted. Assessment and Plan Assessment and Plan IMPRESSION 1. Acute respiratory failure. 2. Pulmonary edema with cardiomyopathy. 3. History of ORIF of the right hip. 4. Atrial fibrillation with CHF. 5. Non-STEMI. Plan : 1. Wean FIO2 to 40 %. 2. Continue Lasix 40 mg IV BID. 3. Chest X [place], BMP in am. 4. Continue antibiotics. 5. Nebs qid , duoneb. 6. Keep sedated. Fentanyl /Steven Monet MD January 20, 2017 15:02
--- NOTE | 2017-01-20 15:02 | PD.CARD.PN ---
Subjective Subjective Remarks PT INTUBATED FOR RESP FAILURE FIO2 V TO 40% BACK IN A FIB WAS SINUS P FEW DAYS SEDATED CXR SAME LARGE GASTRIC AIR BUBBLE LCTA JVP NL IRREG NO S3 +2/6 CHRISTY HCT 25 CREAT 1.2 DIURETIC HELD WILL /\ FLECAINIDE 50 TID AND TRY TO CONVERT TO NSR WATCH QT CLOSELY Objective Vital Signs / I&O Vital Signs Date Time Temp Pulse Resp B/P Pulse Ox O2 Delivery O2 Flow Rate FiO2 01/20/17 12:00 99.3 105 26 102/58 94 01/20/17 12:00 75 01/20/17 12:00 86 01/20/17 08:00 90 01/20/17 08:00 86 01/20/17 08:00 98 Mechanical Ventilator 90 01/20/17 08:00 97.8 83 28 85/51 93 01/20/17 07:48 98 75 01/20/17 04:38 97 90 01/20/17 04:00 117 01/20/17 04:00 90 01/20/17 04:00 99.0 117 34 103/57 97 01/20/17 04:00 97 Mechanical Ventilator 90 01/20/17 03:10 97 100 01/20/17 00:04 77 100 01/20/17 00:00 85 Nasal Cannula 80 01/20/17 00:00 113 01/19/17 22:10 92 Non-Rebreather 15.00 100 01/19/17 21:13 93 High Flow Nasal Cannula 30.00 90 01/19/17 20:00 99.2 113 35 106/57 93 01/19/17 20:00 113 01/19/17 20:00 93 Nasal Cannula 80 01/19/17 18:00 96 Nasal Cannula 100 01/19/17 17:48 95 High Flow Nasal Cannula 30.00 90 01/19/17 16:00 98 Bi-Pap 12.00 100 01/19/17 16:00 98.7 102 28 120/66 95 01/19/17 16:00 102 01/19/17 15:10 93 75 I/O 01/19/17 01/19/17 01/19/17 01/20/17 01/20/17 01/20/17 07:00 15:00 23:00 07:00 15:00 23:00 Intake Total 456 ml 696 ml 100 ml 120 ml 293 ml Output Total 400 ml 850 ml 750 ml 285 ml Balance 56 ml -154 ml 100 ml -630 ml 8 ml Intake Oral 380 ml 620 ml 100 ml 0 ml 0 ml IV Total 76 ml 76 ml 120 ml 243 ml Tube Irrigant 50 ml Output Urine Total 400 ml 850 ml 750 ml 250 ml Gastric Drainage Total 35 ml # Bowel Movements 0 0 0 0 Laboratory Laboratory Tests Test 01/19/17 01/20/17 01/20/17 01/20/17 23:20 01:15 04:15 04:42 Blood Gas Puncture Site RT RADIAL RT RADIAL RT BRACHIAL Blood Gas Patient Temperature 98.6 98.6 98.6 Blood Gas HCO3 32 mmol/L 31 mmol/L 32 mmol/L Blood Gas Base Excess 8.0 mmol/L 7.6 mmol/L 7.6 mmol/L Blood Gas Oxygen Saturation 82 % 84 % 96 % Arterial Blood pH 7.49 7.50 7.46 Arterial Blood Partial 42 mmHg 40 mmHg 46 mmHg Pressure CO2 Arterial Blood Partial 48 mmHg 51 mmHg 137 mmHg Pressure O2 Arterial Blood Oxygen Content 10.9 Vol % 11.7 Vol % 12.6 Vol % Arterial Blood 2.1 % 2.1 % 2.0 % Carboxyhemoglobin Arterial Blood Methemoglobin 1.1 % 1.3 % 1.3 % Blood Gas Hemoglobin 9.4 G/DL 9.9 G/DL 9.2 G/DL Oxygen Delivery Device NRB&HFNC BIPAP VENTILATOR Blood Gas Liter Flow 30 L/M Blood Gas Inspired Oxygen 100 % 100 % 100 % Blood Gas Ventilator Setting IPAP 16/ EPAP PC/AC 10 White Blood Count 28.9 TH/MM3 Red Blood Count 3.59 MIL/MM3 Hemoglobin 9.0 GM/DL Hematocrit 29.2 % Mean Corpuscular Volume 81.3 FL Mean Corpuscular Hemoglobin 25.0 PG Mean Corpuscular Hemoglobin 30.7 % Concent Red Cell Distribution Width 14.0 % Platelet Count 429 TH/MM3 Mean Platelet Volume 7.9 FL Neutrophils (%) (Auto) 90.3 % Lymphocytes (%) (Auto) 2.9 % Monocytes (%) (Auto) 6.2 % Eosinophils (%) (Auto) 0.3 % Basophils (%) (Auto) 0.3 % Neutrophils # (Auto) 26.1 TH/MM3 Lymphocytes # (Auto) 0.8 TH/MM3 Monocytes # (Auto) 1.8 TH/MM3 Eosinophils # (Auto) 0.1 TH/MM3 Basophils # (Auto) 0.1 TH/MM3 CBC Comment DIFF FINAL Differential Comment Activated Partial 37.9 SEC Thromboplast Time Sodium Level 143 MEQ/L Potassium Level 4.2 MEQ/L Chloride Level 101 MEQ/L Carbon Dioxide Level 35.1 MEQ/L Anion Gap 7 MEQ/L Blood Urea Nitrogen 31 MG/DL Creatinine 1.42 MG/DL Estimat Glomerular Filtration 47 ML/MIN Rate Random Glucose 123 MG/DL Calcium Level 8.4 MG/DL Test 01/20/17 12:55 Activated Partial 49.1 SEC Thromboplast Time Assessment and Plan Assessment and Plan PT IS ABOUT THE SAME NO CP OR DEEPAK NOW A FIB CXR SAME CREAT V 1.03 HYPOXEMIC RESP FAILURE SEVERE SATS V 60'S OFF BIPAP FIO2 .7 V BS FEW BASILAR RALES IRREG NO S3 HAS 2/6 AND MR MURMURS NO EDEMA JVP NL WILL DC AMIODARONE THIS CAN RARELY CAUSE NON-CARDIOGENIC PULM EDEMA AND RESP FAILURE NO INDICATION FOR STEROIDS @ THIS TIME Michele Velazquez DO January 20, 2017 15:02
[2017-01-20 20:47] LABS: BLOOD, URINE TRACE (NEG); GLUCOSE,URINE NEG (NEG); KETONE, URINE NEG (NEG); MUCUS URINE FEW /lpf (OCC); NITRITE,URINE NEG (NEG); SQUAMOUS EPITHELIAL CELL URINE <1 /hpf (0-5); URINE COLOR YELLOW (YELLW/STRAW)
[2017-01-20 20:48] LABS: COMMENT (UR) CATH-CULTURE IND; CULTURE IF INDICATED CATH CULTURE IND
[2017-01-21] VITALS (16 sets, daily range): BP systolic 91–105; BP diastolic 51–55; PULSE 85–109; RESP 10–22; TEMP 97.7–99.4; O2SAT 93–96
[2017-01-21] MEDS: FLECAINIDE ACETATE 100 MG TAB PO SCH ×4 (00:57→23:47)
[2017-01-21] MEDS: SODIUM CHLORIDE 0.9% FLUSH 10 ML FLUSH IV FLUSH SCH ×3 (00:57→21:00)
[2017-01-21 04:55] LABS: HEMATOCRIT 26.6 % (39.0-51.0); MEAN CELL VOLUME 82.1 FL (80.0-100.0); MEAN CORPUSCULAR HEMOGLOBIN 25.1 PG (27.0-34.0); MEAN CORPUSCULAR HGB CONC 30.5 % (32.0-36.0); PLATELET COUNT 375 TH/MM3 (150-450); RED BLOOD COUNT 3.24 MIL/MM3 (4.50-5.90); RED CELL DISTRIBUTION WIDTH 14.2 % (11.6-17.2); REVIEW FLAG FINAL
[2017-01-21] MEDS: HEPARIN-D5W INJ 250 ML IV SCH (04:57)
[2017-01-21 05:10] LABS: BICARBONATE 33.7 MEQ/L (21.0-32.0); POTASSIUM 4.4 MEQ/L (3.5-5.1)
[2017-01-21] MEDS: CEFEPIME INJ 2,000 MG in SODIUM CHLORIDE 0.9% INJ 100 ML IV SCH ×2 (06:27→17:28)
[2017-01-21] MEDS: LEVOTHYROXINE SODIUM 112 MCG TAB PO SCH (06:28)
[2017-01-21] MEDS: LEVOTHYROXINE SODIUM 100 MCG TAB PO SCH (06:28)
[2017-01-21] MEDS: LINEZOLID 600 MG TAB PO SCH ×2 (09:21→20:48)
[2017-01-21] MEDS: DOCUSATE SODIUM 50 MG/SENNA 8.6 MG TAB PO SCH ×2 (09:21→20:48)
[2017-01-21] MEDS: POTASSIUM CHLORIDE 20 MEQ PWD PACKET PO SCH ×2 (09:21→20:49)
[2017-01-21] MEDS: PANTOPRAZOLE SODIUM 40 MG VIAL IV SCH (09:21)
[2017-01-21] MEDS: AZITHROMYCIN 250 MG TAB PO SCH (09:21)
[2017-01-21] MEDS: ATORVASTATIN 20 MG TAB PO SCH (09:21)
[2017-01-21] MEDS: ASPIRIN 81 MG CHEW TAB CHEW SCH (09:21)
[2017-01-21] MEDS: DIGOXIN 0.125 MG TAB PO SCH (09:21)
[2017-01-21] MEDS: DIGOXIN 0.5 MG/2 ML VIAL IV PUSH SCH (09:21)
[2017-01-21] MEDS: SODIUM CHLORIDE 0.9% FLUSH 10 ML FLUSH IV FLUSH PRN ×2 (09:21→15:39)
[2017-01-21 10:59] LABS: APTT (PATIENT) 41.3 SEC (24.3-30.1)
[2017-01-21] MEDS ORDERED: ALBUMIN HUMAN 25% 25 GM/100 ML BAGP IV ONE (12:45)
[2017-01-21] MEDS ORDERED: SODIUM CHLOR 0.9% 1000 ML INJ 1,000 ML IV SCH (13:00)
--- NOTE | 2017-01-21 14:09 | PD.CARD.PN ---
Subjective Subjective Remarks PT STABLE STILL INTUBATED MORE RESPONSIVE SATS 95 CREATININE /\ 2.3 LCTA STILL AF 80S NO S3 NO EDEMA DIURETICS HELD GETTING FLUIDS SAME CV ZARATE Objective Vital Signs / I&O Vital Signs Date Time Temp Pulse Resp B/P Pulse Ox O2 Delivery O2 Flow Rate FiO2 01/21/17 12:00 95 01/21/17 12:00 99.4 95 22 92/52 94 01/21/17 12:00 40 01/21/17 11:37 93 40 01/21/17 10:00 96 01/21/17 08:00 109 01/21/17 08:00 98.6 109 22 96/55 95 01/21/17 08:00 40 01/21/17 07:50 95 40 01/21/17 04:30 94 40 01/21/17 04:00 40 01/21/17 04:00 99.0 102 16 105/53 94 01/21/17 04:00 104 01/21/17 01:14 94 40 01/21/17 00:00 40 01/21/17 00:00 102 01/21/17 00:00 98.5 93 16 102/52 94 01/20/17 22:35 94 40 01/20/17 20:00 40 01/20/17 20:00 98.8 109 20 98/59 93 01/20/17 20:00 91 01/20/17 19:38 93 40 01/20/17 17:45 92 40 01/20/17 16:00 98.8 100 28 105/59 93 01/20/17 16:00 40 01/20/17 16:00 100 I/O 01/20/17 01/20/17 01/20/17 01/21/17 01/21/17 01/21/17 07:00 15:00 23:00 07:00 15:00 23:00 Intake Total 120 ml 293 ml 318 ml 119 ml Output Total 750 ml 285 ml 350 ml 250 ml Balance -630 ml 8 ml -32 ml -131 ml Intake Oral 0 ml 0 ml IV Total 120 ml 243 ml 318 ml 119 ml Tube Irrigant 50 ml Output Urine Total 750 ml 250 ml 350 ml 250 ml Stool Total 0 ml Gastric Drainage Total 35 ml # Bowel Movements 0 0 Laboratory Laboratory Tests Test 5/13/17 5/14/17 5/14/17 16:55 04:23 09:12 Urine Color YELLOW Urine Turbidity HAZY Urine pH 5.0 Urine Specific [place] 1.017 Urine Protein 30 mg/dL Urine Glucose (UA) NEG mg/dL Urine Ketones NEG mg/dL Urine Occult Blood TRACE Urine Nitrite NEG Urine Bilirubin NEG Urine Urobilinogen LESS THAN 2.0 MG/DL Urine Leukocyte Esterase NEG Urine RBC 2 /hpf Urine WBC 5 /hpf Urine WBC Clumps FEW Urine Squamous Epithelial <1 /hpf Cells Urine Mucus FEW /lpf Microscopic Urinalysis Comment CATH-CULTURE IND White Blood Count 25.0 TH/MM3 Red Blood Count 3.24 MIL/MM3 Hemoglobin 8.1 GM/DL Hematocrit 26.6 % Mean Corpuscular Volume 82.1 FL Mean Corpuscular Hemoglobin 25.1 PG Mean Corpuscular Hemoglobin 30.5 % Concent Red Cell Distribution Width 14.2 % Platelet Count 375 TH/MM3 Mean Platelet Volume 7.9 FL Sodium Level 143 MEQ/L Potassium Level 4.4 MEQ/L Chloride Level 101 MEQ/L Carbon Dioxide Level 33.7 MEQ/L Anion Gap 8 MEQ/L Blood Urea Nitrogen 55 MG/DL Creatinine 2.33 MG/DL Estimat Glomerular Filtration 27 ML/MIN Rate Random Glucose 105 MG/DL Calcium Level 8.6 MG/DL B-Type Natriuretic Peptide 173 PG/ML Activated Partial 41.3 SEC Thromboplast Time Assessment and Plan Assessment and Plan PT IS ABOUT THE SAME NO CP OR DEEPAK NOW A FIB CXR SAME CREAT V 1.03 HYPOXEMIC RESP FAILURE SEVERE SATS V 60'S OFF BIPAP FIO2 .7 V BS FEW BASILAR RALES IRREG NO S3 HAS 2/6 AND MR MURMURS NO EDEMA JVP NL WILL DC AMIODARONE THIS CAN RARELY CAUSE NON-CARDIOGENIC PULM EDEMA AND RESP FAILURE NO INDICATION FOR STEROIDS @ THIS TIME Michele Velazquez DO January 21, 2017 14:09
--- NOTE | 2017-01-21 14:19 | HHI.PR ---
Subjective Remarks Intubated for progressive resp failure . Now on 40 % FIO2 Renal functions are worse.. On antibiotics. Off Lasix Objective Vital Signs Date Time Temp Pulse Resp B/P Pulse Ox O2 Delivery O2 Flow Rate FiO2 01/21/17 12:00 95 01/21/17 12:00 99.4 95 22 92/52 94 01/21/17 12:00 40 01/21/17 11:37 93 40 01/21/17 10:00 96 01/21/17 08:00 109 01/21/17 08:00 98.6 109 22 96/55 95 01/21/17 08:00 40 01/21/17 07:50 95 40 01/21/17 04:30 94 40 01/21/17 04:00 40 01/21/17 04:00 99.0 102 16 105/53 94 01/21/17 04:00 104 01/21/17 01:14 94 40 01/21/17 00:00 40 01/21/17 00:00 102 01/21/17 00:00 98.5 93 16 102/52 94 01/20/17 22:35 94 40 01/20/17 20:00 40 01/20/17 20:00 98.8 109 20 98/59 93 01/20/17 20:00 91 01/20/17 19:38 93 40 01/20/17 17:45 92 40 01/20/17 16:00 98.8 100 28 105/59 93 01/20/17 16:00 40 01/20/17 16:00 100 I/O 01/20/17 01/20/17 01/20/17 01/21/17 01/21/17 01/21/17 07:00 15:00 23:00 07:00 15:00 23:00 Intake Total 120 ml 293 ml 318 ml 119 ml Output Total 750 ml 285 ml 350 ml 250 ml Balance -630 ml 8 ml -32 ml -131 ml Intake Oral 0 ml 0 ml IV Total 120 ml 243 ml 318 ml 119 ml Tube Irrigant 50 ml Output Urine Total 750 ml 250 ml 350 ml 250 ml Stool Total 0 ml Gastric Drainage Total 35 ml # Bowel Movements 0 0 Result Diagram: 01/21/17 0423 01/21/17 042 Objective Remarks GENERAL: This is a moderately overweight, elderly white male who is on the vent. HEENT: Head normocephalic. Pupils are reactive. Tongue moist. NECK: Supple with no venous distension. Trachea midline. CHEST: Distant breath sounds. There are bibasilar crackles, with wheezes throughout both lung moreno. HEART SOUNDS: Irregularly irregular. S1 and S2. No murmur. ABDOMEN: Soft, benign. No mass, no organomegaly. EXTREMITIES: Mild edema 1+. Decreased pulses. Sedated. SKIN: No lesions are noted. Assessment and Plan Assessment and Plan IMPRESSION 1. Acute respiratory failure. 2. Pulmonary edema with cardiomyopathy. 3. History of ORIF of the right hip. 4. Atrial fibrillation with CHF. 5. Non-STEMI. Plan : 1. Wean FIO2 to 35 %. 2. D/C Diuretic 3. Reduce PEEP to 8 cm 4. Continue antibiotics. 5. Nebs qid , duoneb. 6. Keep sedated. Fentanyl /Diprivan 7. Cautious hydration Steven Inman MD January 21, 2017 14:19
--- NOTE | 2017-01-21 15:02 | HHI.CCPN ---
Subjective Remarks/Hospital Course Patient is an 86-year-old male that presented to the ED with complaints of shortness of breath. As per EMS, patient had a right hip replacement performed on Sunday by Dr. Linares. Patient reports that he was discharged to home on . Patient reports that he felt fine after his discharge, and reported that last evening he had episodes of nausea, and indigestion so he decided not to take his second dose of ASA. Patients reports that patient had the chills, reports that he was feeling weak and has had a productive cough since last night.. Reports that this morning, he was complaining of shortness of breath. When patient's home nurse arrived, she noted that patients pulse ox was 35% on room air. Patient does not use home O2. EMS were called, fire rescue reports that patient's pulse ox was 50% on room air. Patient was put on a nonrebreather which brought his pulse ox to 80%. When EMS arrived on scene, patient's pulse ox went to the low 90s on a nonrebreather. In the ED ABG was obtained and the patient was noted to have an O2 sat duration of 56% on room air with a PA O2 of 29. The patient was placed on 100% O2 imaging studies were performed showing pulmonary edema, CTA performed negative for pulmonary embolus. The patient was given 80 mg of furosemide IV with good diuresis. Initial troponin was noted to be elevated the patient received Lovenox subcutaneous 1 dose, and an aspirin 81 mg. Patient does have history of hypothyroidism, CHF, A. fib, hypertension, colon cancer, he currently takes a baby aspirin and is not on any anticoagulants. Critical care medicine was consult for management. Subjective: 01/14: Tmax 98.0. WBC count trending down. Troponins was noted to be elevated. Atorvastatin added to medication regimen. The patient's chest x-ray revealed slight improvement in his pulmonary edema additional Lasix 40 mg IV given this a.m.. Cardiology consulted 01/13, appreciate recommendations The patient continued on BiPAP at 40% overnight we'll continue to attempt to wean to facemask this a.m.. Patient is tolerating a clear liquid diet. 01/15: Tmax 99.2. Morning labs pending. Patient was noted to have an episode of nausea last evening, given Zofran with resolution of symptoms. Concern for cardiac ischemia, EKG ordered this a.m.. Troponin level 1.[address] Linares and obtained clearance to begin heparin infusion.Echo showed elevated Transvalvular gradient w/ mean of 32, and Peak of 57. Patient given Lasix, this a.m.. 01/16: Tmax 99.8. The patient was seen by his welcome wagon host/hostess, Dr. Barrow last evening. Per report from the RN, Dr. Barrow plans to do a cardiac catheterization in the near future, when respiratory status improves. The patient received a total of 240 mg of Lasix in the last 24 hours, with 3 L diuresed. The patient had a short episode of atrial fib last night, and converted without any intervention .Persistent leukocytosis noted, ID consulted. 01/20 critical care medicine was reconsulted due to respiratory distress and failure, despite the aggressive diuresis and a BiPAP treatment patient's sats remained at low 80s with a respiratory rate 30s. Patient was intubated due to respiratory failure 01/21: Intubated yesterday for respiratory distress. wbc elevated at that time, but immediately after intubation. today, wbc downtrending. patient awake and following commands, fio2 downtrending. Cr rising, however, and clinically appears dehydrated. Bedside critical care ultrasound demonstrates grossly preserved biventricular function with an almost completely collapsable IVC with positive pressure ventilation. BNP also significantly lower than admission, and now in NSR this morning. Objective Vital Signs Date Time Temp Pulse Resp B/P Pulse Ox O2 Delivery O2 Flow Rate FiO2 01/21/17 14:00 91 01/21/17 12:00 99.4 22 92/52 94 01/21/17 12:00 40 01/20/17 08:00 Mechanical Ventilator 01/19/17 22:10 15.00 Intake and Output 01/20/17 01/20/17 01/21/17 08:00 16:00 00:00 Intake Total 120 ml 293 ml 318 ml Output Total 750 ml 285 ml 350 ml Balance -630 ml 8 ml -32 ml Result Diagram: 01/21/17 0423 01/21/17 0423 Imaging Last Impressions Chest X-Ray 01/16/17 0600 Signed Impressions: Service Date/Time: Monday, January 16, 2017 06:29 - CONCLUSION: Unchanged diffuse bilateral pulmonary infiltrates. Ethan Spence Jr., MD CT Angiography 01/13/17 1313 Signed Impressions: Service Date/Time: Friday, January 13, 2017 13:52 - CONCLUSION: 1. No evidence of pulmonary embolism. 2. Diffuse alveolar infiltrates most consistent with pulmonary edema. 3. Small bilateral pleural effusions and cardiomegaly. Pan Soria MD Last Impressions Chest X-Ray 01/15/17 0000 Signed Impressions: Service Date/Time: Sunday, January 15, 2017 07:54 - CONCLUSION: Cardiomegaly with diffuse bilateral pulmonary opacities likely pulmonary edema CHF. Deng Nicholas MD CT Angiography 01/13/17 1313 Signed Impressions: Service Date/Time: Friday, January 13, 2017 13:52 - CONCLUSION: 1. No evidence of pulmonary embolism. 2. Diffuse alveolar infiltrates most consistent with pulmonary edema. 3. Small bilateral pleural effusions and cardiomegaly. Pan Soria MD Last Impressions CT Angiography 01/13/17 1313 Signed Impressions: Service Date/Time: Friday, January 13, 2017 13:52 - CONCLUSION: 1. No evidence of pulmonary embolism. 2. Diffuse alveolar infiltrates most consistent with pulmonary edema. 3. Small bilateral pleural effusions and cardiomegaly. Pan Soria MD Chest X-Ray 01/13/17 1241 Signed Impressions: Service Date/Time: Friday, January 13, 2017 12:42 - CONCLUSION: 1. Development of diffuse interstitial prominence and small effusion suggesting congestive failure. Mega Monzon MD Objective Remarks GENERAL: Elderly gentleman intubated, sedated, critically ill. SKIN: Warm and dry. HEAD: Atraumatic. Normocephalic. EYES: Pupils equal and round. No scleral icterus. No injection or drainage. ENT: No nasal bleeding or discharge. Mucous membranes pink and moist. NECK: Trachea midline. No JVD. CARDIOVASCULAR: Normal rate, regular rhythm. Murmur 2/6 noted left sternal border RESPIRATORY: PRVC, peep 10, fio2 40%. Fine crackles noted in bases. Breath sounds equal bilaterally. GASTROINTESTINAL: Abdomen soft, non-tender, nondistended. No guarding. MUSCULOSKELETAL: Extremities without clubbing, cyanosis, or edema. No obvious deformities. NEUROLOGICAL: RASS -2. nods appropriately to questions. follows commands x 4. CAM -. Procedures None. Date of Insertion: January 13, 2017 A/P Assessment and Plan This is a 86-year-old gentleman status post right total hip arthroplasty Mon,01/08 recently discharged from the hospital, with noted hypoxemic respiratory failure likely secondary to pulmonary edema. pneumonia and sepsis are less likely, although sputum culture has been sent and patient remains on broad spectrum antibiotics. Also, his worsening acute kidney injury is likely secondary to intravascular volume depletion, despite his pulmonary edema. We will hold on further forced diuresis and start judicious ivf hydration. Will also give a dose of concentrated albumin to attempt to recruit extravascular volume. Patient remains very critically ill at this time with multiple organ systems at risk and worsening, and given his age and medical comorbidities, he is at high risk of from this critical illness. Off pathway. Neurologic: Sedated and intubated Propofol/fentanyl/Versed for vent synchrony Neurochecks per ICU protocol goal RASS -2. Respiratory: Acute hypoxemic respiratory failure Pulmonary edema Unresponsive to diuresis and BiPAP Intubated Continue mechanical ventilation does not meet SBT criteria today given ongoing hypoxia. TA no evidence of pulmonary embolus. Diffuse alveolar infiltrates consistent with pulmonary edema. Small bilateral pleural effusions. Cardiomegaly Maintain O2 sat greater than 92% Bronchodilators every 4 hours when necessary Maintain head of bed 30 01/19 CXR-pulmonary edema 01/20 intubated Cardiovascular: NSTEMI History of A. fib CHF Cardiomegaly Grade 1 diastolic dysfunction Aortic Stenosis Given aspirin, Lovenox in ED 01/13 Cardiology consulted 01/13, appreciate recommendations Echocardiogram 01/14-ejection fraction 50-55%,no RWMA, diastolic dysfunction, tricuspid valve mild regurg, mitral valve mild regurg.PASP 54 mmHg elevated transvalvular gradients Continue Atorvastatin 20 mg daily home med, and amiodarone continued Initial troponin 0.68->1.44 Continue ASA 81 mg BNP 782 Patient's private welcome wagon host/hostess is [facility] 01/14 atrial fibrillation controlled, intermittently with resolution normal sinus rhythm. Patient continues on home dose amiodarone 200 mg twice a day 01/15 Heparin infusion initiated after receiving clearance from Orthopedic surgeon , Dr. Linares 01/15 Management per Cardiology -Dr. Barrow, tentative plans for cardiac catheterization per report - amiodarone held. concern by Dr. Sickenger for non-cardiogenic pulmonary edema secondary to amiodarone. - flecainide per Dr. Barrow. - now in NSR on my eval. Renal: Acute kidney injury today appears to have a strong component of pre-renal secondary to intravascular hypovolemia. will order renal ultrasound, urine electrolytes, consult nephrology for their opinion and ongoing recommendations. Gregoria, monitor urine output -- Strict I/Os FEN/GI: Hyperkalemia-resolved Hiatal hernia hold forced diuresis. NS @ 50cc/hr. Monitor BMP Hep-Lock IV Protonix 40 mg IV Heart healthy diet Ensure supplement shakes Bowel regimen Heme/ID: Lactic acidosis- improving. Persistent Leukocytosis F/U blood urine and sputum cultures -NGTD Antibiotics received in the ED included Zosyn, and vancomycin Patient placed on empiric antibiotics cefepime, vancomycin and azithromycin on - will de-escalate with resolution of leukocytosis Monitor CBC ID consulted Endocrine: Hyperglycemia of critical illness Hypothyroidism TSH normal Synthroid home medication 212 mcgs/d Glucose monitoring per ICU protocol. Low-dose regimen -- SSI Physical therapy ampulla mentation per Dr. Tran, patient is status post right total hip arthroplasty Prophylaxis: GI Prophylaxis Protonix DVT Prophylaxis -- SCDs Heparin infusion Lines: Peripheral IVs 2. Central line if indicated Critical Care: The total critical care time was 41 minutes. Time to perform other separately billable procedures was not included in the critical care time. Ry Lamas MD January 21, 2017 15:02
[2017-01-21] MEDS: RESP: IPRATROPIUM 0.5 MG/2.5 ML NEB NEB SCH ×2 (15:09→21:14)
[2017-01-21] MEDS: PROPOFOL 1000 MG/100 ML INJ 100 ML IV SCH (15:38)
--- NOTE | 2017-01-21 16:21 | EKG ---
Date Performed: 01/21/2017 Time Performed: 07:53:32 PTAGE: 86 years EKG: ATRIAL FLUTTER/TACHYCARDIA ST DEVIATION AND MODERATE T-WAVE ABNORMALITY, CONSIDER ANTEROLAT ERAL ISCHEMIA Probable left ventricular hypertrophy. When compared to previous tracing, the rhythm is more organized And now atrial flutter rather than atrial fibrillation. There has been significant in crease in the inferolateral ST Segment changes and myocardial ischemia should be be excluded Clinical ly. ABNORMAL ECG PREVIOUS TRACING : 01/18/2017 05.46 DOCTOR: Hillary Bush Interpretating Date/Time 01/21/2017 16:18:55
--- NOTE | 2017-01-21 16:53 | RADRPT ---
EXAM DATE/TIME: 01/21/2017 16:06 [facility] COMPARISON: No previous studies available for comparison. INDICATIONS : Increased BUN/Creatinine. MEDICAL HISTORY : Hernia, hiatal. Carcinoma, colon. Hypothyroidism. Afib. Heart murmur. Anticoagulant therapy, Aspirin. Esophageal stricture. Enlarged prostate. Osteoarthritis. Chemotherapy. Congestive heart failure. Manas cardial infarction. SURGICAL HISTORY : Colon resection. Hernia repair. Right hip ORIF. ENCOUNTER: Initial ACUITY: 1 day PAIN SCORE: Nonresponsive. LOCATION: Bilateral flank MEASUREMENTS: RIGHT KIDNEY: 10.2 x 5.8 x 4.8 cm LEFT KIDNEY: 11.4 x 5.3 x 6.0 cm FINDINGS: RIGHT KIDNEY: Mildly echogenic cortex without hydronephrosis or mass. LEFT KIDNEY: Mildly echogenic cortex without hydronephrosis. BLADDER: Decompressed by Kinney. CONCLUSION: And mild echogenic cortex of normal-sized kidneys. There is no hydronephrosis. Bryant Monzon MD FACR on January 21, 2017 at 16:50 Board Certified Radiologist. This report was verified electronically.
--- NOTE | 2017-01-21 18:18 | PD.CONS ---
HPI Consult Requested By Reason for Consult Acute renal insufficiency. Primary Care Physician Unknown History of Present Illness 's patient is an 86-year-old male with a history of congestive heart failure, atrial fibrillation and apparently aortic stenosis. Patient status post recent right hip replacement prior to this admission. Subsequently presented with respiratory insufficiency said to be secondary to congestive heart failure and pneumonia. CTA negative for pulmonary embolism on presentation. Serum creatinine level noted to have been 1.14 January 18, 2017 subsequent 8 deteriorating today to a level of 2.33. Patient developed increasing respiratory distress and had to be intubated also hypotensive with worsening leukocytosis. Renal ultrasound performed indicated mild increased echogenicity. Chest x-ray shows increasing interstitial infiltrates. Patient can provide no history at time of consultation. Review of Systems ROS Limitations: Intubated Past Family Social History Allergies: Uncoded Allergies: RUBBER (Allergy, Severe, ITCHING, 12/29/16) Past Medical History Chronic kidney disease stage II. Congestive heart failure. Atrial fibrillation Aortic stenosis by history. Hypothyroidism. Past Surgical History Recent right hip replacement. Reported Medications Reported Meds & Active Scripts Active Hydrocodone-Acetaminophen 7.5-325 mg Tab 1 Tab PO Q4H PRN Aspirin EC (Aspirin) 81 Mg Tabdr 81 Mg PO BID Reported Calcium (Calcium Carbonate) 1,250 Mg Tab 1,250 Mg PO DAILY 1,250 mg calcium carbonate (500 mg elemental calcium) Multivitamin Adults (Multiple Vitamins W/ Minerals) 1 Tab 1 Tab PO DAILY Amiodarone (Amiodarone HCl) 200 Mg Tab 200 Mg PO DAILY Synthroid (Levothyroxine Sodium) 100 Mcg Tab 100 Mcg PO DAILY take with 112 mcg for toatal sose of 212mcg Synthroid (Levothyroxine Sodium) 112 Mcg Tab 112 Mcg PO DAILY take with 100 mcg for toatal sose of 212mcg Active Ordered Medications Current Medications Furosemide 80 mg 80 mg ONCE ONCE IV PUSH Last administered on 01/13/17 13:15; Start 01/13/17 at 13:15; Stop 01/13/17 at 13:16; Status DC Piperacillin Sod/ Tazobactam Sod 50 ml @ 100 mls/hr ONCE ONCE IV Last administered on 01/13/17 14:37; Start 01/13/17 at 13:45; Stop 01/13/17 at 14:14; Status DC Vancomycin HCl/ Sodium Chloride (Vancomycin Inj/ NS 250 ml Inj) 261.5 ml @ 250 mls/hr ONCE ONCE IV Last administered on 01/13/17 15:16; Start 01/13/17 at 13: 45; Stop 01/13/17 at 14:47; Status DC Aspirin (Aspirin Chew) 162 mg ONCE ONCE CHEW Last administered on 01/13/17 14: 37; Start 01/13/17 at 14:00; Stop 01/13/17 at 14:01; Status DC Iohexol (Omnipaque 350 Inj) 75 ml STK-MED ONCE IV Last administered on 13:57; Start 01/13/17 at 13:57; Stop 01/13/17 at 13:58; Status DC Enoxaparin Sodium (Lovenox Inj) 78 mg ONCE ONCE SQ Last administered on 15:17; Start 01/13/17 at 14:45; Stop 01/13/17 at 14:46; Status DC Sodium Chloride (NS Flush) 2 ml UNSCH PRN IV FLUSH FLUSH AFTER USING IV ACCESS Last administered on 01/21/17 15:39; Start 01/13/17 at 15:45 Sodium Chloride (NS Flush) 2 ml BID IV FLUSH Last administered on 01/21/17 07: 58; Start 01/13/17 at 21:00 Acetaminophen (Tylenol) 650 mg Q6H PRN PO PAIN 6-10 AND/OR FEVER >101F Last administered on 01/19/17 09:12; Start 01/13/17 at 15:45 Acetaminophen/ Hydrocodone Bitart ([place] 5-325 Mg) 1 tab Q4H PRN PO PAIN SCALE 1 TO 5; Start 01/13/17 at 15:45 Pantoprazole Sodium (Protonix Inj) 40 mg DAILY IV Last administered on 09:21; Start 01/14/17 at 09:00 Ondansetron HCl (Zofran Inj) 4 mg Q6H PRN IV NAUSEA OR VOMITING Last administered on 01/15/17 06:06; Start 01/13/17 at 15:45 Senna/Docusate Sodium (Gertrude-Colace) 2 tab BID PO Last administered on 09:21; Start 01/13/17 at 21:00 Bisacodyl (Dulcolax Supp) 10 mg DAILY PRN RECTAL CONSTIPATION; Start 01/13/17 at 15:45 Magnesium Hydroxide (Milk Of Magnesia Liq) 30 ml Q12H PRN PO CONSTIPATION; Start 01/13/17 at 15:45 Albuterol/ Ipratropium (Duoneb Neb) 1 ampule Q4HR NEB PRN INH WHEEZING Last administered on 01/20/17 21:11; Start 01/13/17 at 15:45 Miscellaneous Information 1 [id number] XX ; Start 01/13/17 at 15:45 Chlorhexidine Gluconate (Chlorhexidine 2% Cloth) Taper DAILY@04 TOP Last administered on 01/20/17 04:00; Start 01/14/17 at 04:00; Stop 01/10/18 at 03:59 Chlorhexidine Gluconate 3 pack 3 pack UNSCH PRN TOP HYGIENIC CARE; Start at 15:45 Potassium Chloride 100 ml @ 50 mls/hr Q2H PRN IV For Potassium 2.8 - 3.2 mEq/L ; Start 01/13/17 at 15:45; Stop 01/17/17 at 11:52; Status DC Potassium Chloride (KCl 20 Meq Premix Inj) 100 ml @ 50 mls/hr Q2H PRN IV For Potassium 2.8 - 3.2 mEq/L Last administered on 01/17/17 08:51; Start 01/13/17 at 15:45; Stop 01/17/17 at 11:52; Status DC Potassium Bicarb/ Potassium Chloride 50 meq 50 meq UNSCH PRN PO For Potassium 3.3 - 3.5 mEq/L; Start 01/13/17 at 15:45; Stop 01/17/17 at 11:52; Status DC Potassium Chloride 100 ml @ 25 mls/hr UNSCH PRN IV For Potassium 3.3 - 3.5 mEq /L; Start 01/13/17 at 15:45; Stop 01/17/17 at 11:52; Status DC Potassium Chloride 100 ml @ 50 mls/hr Q2H PRN IV For Potassium 3.3 - 3.5 mEq/L ; Start 01/13/17 at 15:45; Stop 01/17/17 at 11:52; Status DC Magnesium Sulfate/ Sodium Chloride (Magnesium Sulfate Inj/NS Inj) 100 ml @ 50 mls/hr UNSCH PRN IV For Magnesium 0.9 - 1.1 mg/dL; Start 01/13/17 at 15:45; Stop 01/17/17 at 11:52; Status DC Magnesium Oxide 800 mg 800 mg UNSCH PRN PO For Magnesium 1.2 - 1.6 mg/dL; Start 01/13/17 at 15:45; Stop 01/17/17 at 11:52; Status DC Magnesium Sulfate/ Sodium Chloride (Magnesium Sulfate Inj/NS Inj) 100 ml @ 50 mls/hr UNSCH PRN IV For Magnesium 1.2 - 1.6 mg/dL; Start 01/13/17 at 15:45; Stop 01/17/17 at 11:52; Status DC Potassium Phosphate 2000 mg 2,000 mg Q4H PRN PO For Phosphorus < 2.5 mg/dL; Start 01/13/17 at 15:45; Stop 01/17/17 at 11:51; Status DC Sodium Phosphate/ Sodium Chloride (Sodium Phosphate Inj/NS 250 ml Inj) 250 ml @ 42 mls/hr UNSCH PRN IV For Phosphorus < 2.5 mg/dL; Start 01/13/17 at 15:45 Potassium Phosphate 2000 mg 2,000 mg UNSCH PRN PO/TUBE SEE LABEL COMMENTS; Start 01/13/17 at 15:45; Stop 01/17/17 at 11:51; Status DC Cefepime HCl 2000 mg/Sodium Chloride 100 ml @ 200 mls/hr Q12H IV Last administered on 01/21/17 17:28; Start 01/13/17 at 18:00 Azithromycin 500 mg/Sodium Chloride 250 ml @ 250 mls/hr Q24H IV Last administered on 01/16/17 16:27; Start 01/13/17 at 17:00; Stop 01/17/17 at 14:29; Status DC Pharmacy Profile Note 0 ml @ 0 mls/hr UNSCH OTHER ; Start 01/13/17 at 15:45; Stop 01/17/17 at 14:29; Status DC Vancomycin HCl 1000 mg/Sodium Chloride 250 ml @ 250 mls/hr ONCE ONCE IV ; Start 01/13/17 at 17:00; Stop 01/13/17 at 17:00; Status DC Sodium Chloride 1,000 ml @ 42 mls/hr [id number] IV Last administered on 01/13/17 17:02; Start 01/13/17 at 17:00; Stop 01/15/17 at 08:07; Status DC Vancomycin HCl/ Sodium Chloride (Vancomycin Inj/ NS Inj) 100 ml @ 200 mls/hr ONCE ONCE IV Last administered on 01/13/17 18:27; Start 01/13/17 at 18:00; Stop 01/13/17 at 18:29; Status DC Atorvastatin Calcium (Lipitor) 20 mg DAILY PO Last administered on 01/21/17 09 :21; Start 01/14/17 at 09:00 Aspirin (Aspirin Chew) 81 mg DAILY CHEW Last administered on 01/21/17 09:21; Start 01/14/17 at 09:00 Furosemide (Lasix Inj) 40 mg STK-MED ONCE .ROUTE Last administered on 01/14/17 08:25; Start 01/14/17 at 08:15; Stop 01/14/17 at 08:16; Status DC Furosemide 40 mg 40 mg NOW ONCE IV PUSH Last administered on 01/14/17 08:36; Start 01/14/17 at 09:00; Stop 01/14/17 at 09:01; Status DC Vancomycin HCl/ Sodium Chloride (Vancomycin Inj/ NS 250 ml Inj) 250 ml @ 250 mls/hr Q24H IV Last administered on 01/16/17 18:50; Start 01/14/17 at 18:00; Stop 01/17/17 at 14:29; Status DC Miscellaneous Information SPECIFIC LAB TO BE PEDRO... ONCE ONCE .XX ; Start 01/17 at 17:45; Stop 01/17/17 at 17:46; Status Cancel Heparin Sodium/ Dextrose (Heparin-D5W Inj) 250 ml @ 0 mls/hr TITRATE IV Last administered on 01/21/17 04:57; Start 01/15/17 at 08:45 Furosemide (Lasix Inj) 40 mg ONCE ONCE IV PUSH Last administered on 01/15/17 09:29; Start 01/15/17 at 08:45; Stop 01/15/17 at 09:19; Status DC Amiodarone HCl (Cordarone) 200 mg DAILY PO Last administered on 01/17/17 08:40 ; Start 01/15/17 at 11:15; Stop 01/17/17 at 15:05; Status DC Levothyroxine Sodium (Synthroid) 100 mcg DAILY@06 PO Last administered on 06:28; Start 01/15/17 at 11:15 Levothyroxine Sodium (Synthroid) 112 mcg DAILY@0600 PO Last administered on 06:28; Start 01/16/17 at 06:00 Furosemide (Lasix Inj) 40 mg ONCE ONCE IV PUSH Last administered on 01/15/17 17:46; Start 01/15/17 at 16:30; Stop 01/15/17 at 16:33; Status DC Furosemide (Lasix Inj) 40 mg ONCE ONCE IV PUSH Last administered on 01/15/17 21:02; Start 01/15/17 at 20:45; Stop 01/15/17 at 20:46; Status DC Furosemide (Lasix) 40 mg BID PO Last administered on 01/17/17 08:40; Start 01/16/17 at 09:00; Stop 01/17/17 at 09:53; Status DC Potassium Bicarb/ Potassium Chloride (K-[place] Cl Eff) 50 meq ONCE ONCE PO Last administered on 01/16/17 08:42; Start 01/16/17 at 08:45; Stop 01/16/17 at 08: 52; Status DC Furosemide (Lasix Inj) 20 mg ONCE ONCE IV PUSH Last administered on 01/17/17 10:32; Start 01/17/17 at 10:00; Stop 01/17/17 at 10:04; Status DC Furosemide 20 mg 20 mg BID@09,18 IV PUSH Last administered on 01/17/17 17:18; Start 01/17/17 at 18:00; Stop 01/18/17 at 13:14; Status DC Potassium Chloride (KCl 20 Meq Premix Inj) 100 ml @ 50 mls/hr Q2H IV Last administered on 01/17/17 23:37; Start 01/17/17 at 20:00; Stop 01/17/17 at 23:59 ; Status DC Potassium Chloride (KCl) 10 meq Q8HR PO Last administered on 01/18/17 08:33; Start 01/18/17 at 09:00; Stop 01/18/17 at 13:16; Status DC Azithromycin (Zithromax) 500 mg DAILY PO Last administered on 01/21/17 09:21; Start 01/18/17 at 09:00 Linezolid (Zyvox) 600 mg Q12HR PO Last administered on 01/21/17 09:21; Start 01/17/17 at 21:00 Digoxin (Lanoxin Inj) 0.5 mg ONCE ONCE IV PUSH Last administered on 01/17/17 15:49; Start 01/17/17 at 15:15; Stop 01/17/17 at 15:16; Status DC Flecainide Acetate (Tambocor) 50 mg BID PO Last administered on 01/20/17 09:06 ; Start 01/17/17 at 21:00; Stop 01/20/17 at 15:47; Status DC Digoxin (Lanoxin) 0.125 mg DAILY PO Last administered on 01/21/17 09:21; Start 01/18/17 at 09:00 Digoxin (Lanoxin Inj) 0.125 mg DAILY IV PUSH Last administered on 01/20/17 09: 07; Start 01/18/17 at 09:00; Status Hold Miscellaneous (Pill Splitter) 1 ea UNSCH PRN OTHER SEE LABEL COMMENTS; Start at 21:00 Furosemide 20 mg 20 mg ONCE ONCE IV PUSH Last administered on 01/18/17 09:30 ; Start 01/18/17 at 09:30; Stop 01/18/17 at 09:31; Status DC Potassium Chloride (KCl 20 Meq Premix Inj) 100 ml @ 50 mls/hr Q2H IV Last administered on 01/18/17 11:45; Start 01/18/17 at 09:45; Stop 01/18/17 at 13:44 ; Status DC Furosemide (Lasix Inj) 40 mg ONCE ONCE IV PUSH ; Start 01/18/17 at 11:00; Stop 01/18/17 at 11:01; Status DC Furosemide (Lasix Inj) 40 mg BID@09,18 IV PUSH Last administered on 01/20/17 18:22; Start 01/18/17 at 18:00; Status Hold Potassium Chloride (KCl) 30 meq Q12HR PO Last administered on 01/20/17 21:41; Start 01/18/17 at 21:00; Stop 01/21/17 at 07:54; Status DC Potassium Chloride (KCl) 60 meq ONCE ONCE PO Last administered on 01/19/17 13 :18; Start 01/19/17 at 13:00; Stop 01/19/17 at 13:01; Status DC Furosemide (Lasix Inj) 40 mg ONCE ONCE IV PUSH Last administered on 01/20/17 00:33; Start 01/20/17 at 00:15; Stop 01/20/17 at 00:16; Status DC Lorazepam (Ativan Inj) 0.5 mg ONCE ONCE IV PUSH Last administered on 00:41; Start 01/20/17 at 00:45; Stop 01/20/17 at 00:46; Status DC Etomidate (Amidate Inj) 20 mg ONCE ONCE IV PUSH Last administered on 02:24; Start 01/20/17 at 02:00; Stop 01/20/17 at 02:01; Status DC Succinylcholine Chloride 70 mg 70 mg ONCE ONCE IV PUSH Last administered on 02:24; Start 01/20/17 at 02:00; Stop 01/20/17 at 02:01; Status DC Propofol 100 ml @ 0 mls/hr TITRATE IV Last administered on 01/21/17 15:38; Start 01/20/17 at 02:45 Propofol 100 ml @ As Directed STK-MED ONCE .ROUTE Last administered on 04:31; Start 01/20/17 at 02:40; Stop 01/20/17 at 02:41; Status DC Midazolam HCl 100 ml @ 0 mls/hr TITRATE IV ; Start 01/20/17 at 03:30; Stop 01/21 at 15:01; Status DC Fentanyl Citrate (fentaNYL DRIP) 250 ml @ 0 mls/hr TITRATE IV Last administered on 01/20/17 12:08; Start 01/20/17 at 03:30 Magnesium Oxide 800 mg 800 mg UNSCH PRN PO For Magnesium 1.2 - 1.6 mg/dL; Start 01/20/17 at 11:45 Magnesium Sulfate 4 gm/Sodium Chloride 100 ml @ 50 mls/hr UNSCH PRN IV For Magnesium 0.9 - 1.1 mg/dL; Start 01/20/17 at 11:45 Magnesium Sulfate 2 gm/Sodium Chloride 100 ml @ 50 mls/hr UNSCH PRN IV For Magnesium 1.2 - 1.6 mg/dL; Start 01/20/17 at 11:45 Potassium Chloride 100 ml @ 50 mls/hr Q2H PRN IV For Potassium 2.8 - 3.2 mEq/L ; Start 01/20/17 at 11:45 Potassium Chloride 100 ml @ 50 mls/hr Q2H PRN IV For Potassium 3.3 - 3.5 mEq/L ; Start 01/20/17 at 11:45 Potassium Chloride 100 ml @ 50 mls/hr Q2H PRN IV For Potassium 2.8 - 3.2 mEq/L ; Start 01/20/17 at 11:45 Potassium Chloride (KCl 40 Meq Premix Inj) 100 ml @ 25 mls/hr UNSCH PRN IV For Potassium 3.3 - 3.5 mEq/L; Start 01/20/17 at 11:45 Potassium Phosphate (K-Phos) 2,000 mg Q4H PRN PO For Phosphorus < 2.5 mg/dL; Start 01/20/17 at 11:45 Potassium Phosphate 2000 mg 2,000 mg UNSCH PRN PO/TUBE SEE LABEL COMMENTS; Start 01/20/17 at 11:45 Sodium Phosphate/ Sodium Chloride (Sodium Phosphate Inj/NS 250 ml Inj) 250 ml @ 42 mls/hr UNSCH PRN IV For Phosphorus < 2.5 mg/dL; Start 01/20/17 at 11:45 Flecainide Acetate (Tambocor) 50 mg Q8H PO Last administered on 01/21/17 15:39 ; Start 01/20/17 at 15:47 Potassium Chloride 30 meq 30 meq Q12HR PO Last administered on 01/21/17 09:21 ; Start 01/21/17 at 09:00 Sodium Chloride (NS 1000 ml Inj) 1,000 ml @ 80 mls/hr [id number] IV Last administered on 01/21/17 12:50; Start 01/21/17 at 13:00 Albumin Human (Albumin 25% Inj) 25 gm NOW ONCE IV Last administered on 12:50; Start 01/21/17 at 12:45; Stop 01/21/17 at 12:46; Status DC Ipratropium [place] (Atrovent Neb) 0.5 mg Q6HR NEB NEB Last administered on 15:09; Start 01/21/17 at 16:00 Family History Unobtainable from patient presently. Social History Unobtainable from patient presently. Physical Exam Vital Signs Vital Signs Date Time Temp Pulse Resp B/P Pulse Ox O2 Delivery O2 Flow Rate FiO2 01/21/17 18:00 93 01/21/17 16:00 97.7 90 20 91/55 95 01/21/17 16:00 40 01/21/17 16:00 90 01/21/17 14:00 91 01/21/17 12:00 95 01/21/17 12:00 99.4 95 22 92/52 94 01/21/17 12:00 40 01/21/17 11:37 93 40 01/21/17 10:00 96 01/21/17 08:00 109 01/21/17 08:00 98.6 109 22 96/55 95 01/21/17 08:00 40 01/21/17 07:50 95 40 01/21/17 04:30 94 40 01/21/17 04:00 40 01/21/17 04:00 99.0 102 16 105/53 94 01/21/17 04:00 104 01/21/17 01:14 94 40 01/21/17 00:00 40 01/21/17 00:00 102 01/21/17 00:00 98.5 93 16 102/52 94 01/20/17 22:35 94 40 01/20/17 20:00 40 01/20/17 20:00 98.8 109 20 98/59 93 01/20/17 20:00 91 01/20/17 19:38 93 40 Physical Exam GENERAL: Elderly male thin. ET tube in place. SKIN: Warm and dry. Skin turgor significantly diminished with tenting. HEAD: Normocephalic. Mucous membranes appear dry. EYES: No scleral icterus. No injection or drainage. NECK: Supple, trachea midline. No JVD or lymphadenopathy. CARDIOVASCULAR: Regular rate and rhythm without murmurs, gallops, or rubs. RESPIRATORY: Breath sounds equal bilaterally. No accessory muscle use. GASTROINTESTINAL: Abdomen soft, non-tender, nondistended. MUSCULOSKELETAL: No cyanosis, or edema. BACK: No CVA tenderness. Laboratory Laboratory Tests Test 01/21/17 01/21/17 04:23 09:12 White Blood Count 25.0 Red Blood Count 3.24 Hemoglobin 8.1 Hematocrit 26.6 Mean Corpuscular Volume 82.1 Mean Corpuscular Hemoglobin 25.1 Mean Corpuscular Hemoglobin 30.5 Concent Red Cell Distribution Width 14.2 Platelet Count 375 Mean Platelet Volume 7.9 Sodium Level 143 Potassium Level 4.4 Chloride Level 101 Carbon Dioxide Level 33.7 Anion Gap 8 Blood Urea Nitrogen 55 Creatinine 2.33 Estimat Glomerular Filtration 27 Rate Random Glucose 105 Calcium Level 8.6 B-Type Natriuretic Peptide 173 Activated Partial 41.3 Thromboplast Time Date/Time Procedure Status Source Growth 01/21/17 14:20 Gram Stain Received Sputum Endotracheal Pending 01/21/17 14:20 Sputum Culture Received Sputum Endotracheal Pending 01/20/17 16:55 Urine Culture - Preliminary Resulted Urine Catheterized Urine NO GROWTH IN 24 HOURS. Result Diagram: 01/21/17 0423 01/21/17 0423 Imaging Last 48 hours Impressions Renal Ultrasound 01/21/17 0000 Signed Impressions: Service Date/Time: Saturday, January 21, 2017 16:06 - CONCLUSION: And mild echogenic cortex of normal-sized kidneys. There is no hydronephrosis. Bryant Monzon MD FACR Chest X-Ray 01/20/17 0000 Signed Impressions: Service Date/Time: Friday, January 20, 2017 03:01 - CONCLUSION: 1. ET tube in good position. 2. No pneumothorax. 3. Stable bilateral pulmonary interstitial infiltrates. Daryl Martins MD Assessment and Plan Problem List: (1) Acute kidney insufficiency Plan: Patient's acute renal insufficiency most likely related to hemodynamic issues with hypotension and I suspect that the patient is intravascular volume depleted based on clinical examination. Noted that ejection fraction relatively well-preserved and BNP not significantly elevated. Agree with holding diuretics for the present with hydration with IV saline and monitoring of volume status, blood pressure and renal indices. Medications should be adjusted for the patient's estimated GFR if clinically indicated. Avoid agents with significant potential for nephrotoxicity possible including NSAIDs for analgesia, iodine contrast agents. Gadolinium is contraindicated if the GFR is below 30. (2) CKD (chronic kidney disease), stage II Plan: Most likely secondary to nephrosclerosis of hypertension and aging. (3) Acute respiratory failure with hypoxia Plan: Suspect infectious process primary issue here at the current time. Defer management to infectious disease/critical care. Angela Malave MD January 21, 2017 18:18
[2017-01-21 18:39] LABS: BACTERIA, URINE OCC /hpf; BLOOD, URINE SMALL (NEG); GLUCOSE,URINE NEG (NEG); GRANULAR CAST, URINE 31 /lpf; HYALINE CAST, URINE 9 /lpf (RARE); KETONE, URINE TRACE mg/dL (NEG); MUCUS URINE FEW /lpf (OCC); NITRITE,URINE NEG (NEG); URINE COLOR YELLOW (YELLW/STRAW)
[2017-01-21 18:46] LABS: COMMENT (UR) CATH
[2017-01-21] MEDS: fentaNYL DRIP 250 ML IV SCH (20:57)
[2017-01-22] VITALS (27 sets, daily range): BP systolic 87–102; BP diastolic 48–60; PULSE 63–122; RESP 9–104; TEMP 98.1–99.3; O2SAT 76–99
[2017-01-22] MEDS: RESP: IPRATROPIUM 0.5 MG/2.5 ML NEB NEB SCH ×2 (03:58→09:45)
[2017-01-22 05:13] LABS: APTT (PATIENT) 48.5 SEC (24.3-30.1)
[2017-01-22 05:26] LABS: HEMATOCRIT 22.1 % (39.0-51.0); MEAN CELL VOLUME 82.5 FL (80.0-100.0); MEAN CORPUSCULAR HEMOGLOBIN 25.4 PG (27.0-34.0); MEAN CORPUSCULAR HGB CONC 30.8 % (32.0-36.0); PLATELET COUNT 304 TH/MM3 (150-450); RED BLOOD COUNT 2.68 MIL/MM3 (4.50-5.90); RED CELL DISTRIBUTION WIDTH 14.4 % (11.6-17.2); WHITE BLOOD COUNT 22.3 TH/MM3 (4.0-11.0)
[2017-01-22 05:37] LABS: BICARBONATE 29.3 MEQ/L (21.0-32.0); DIGOXIN 2.2 NG/ML (0.8-2.0); POTASSIUM 5.5 MEQ/L (3.5-5.1); REVIEW FLAG FINAL
[2017-01-22] MEDS: LEVOTHYROXINE SODIUM 112 MCG TAB PO SCH (06:40)
[2017-01-22] MEDS: LEVOTHYROXINE SODIUM 100 MCG TAB PO SCH (06:40)
[2017-01-22] MEDS: CEFEPIME INJ 2,000 MG in SODIUM CHLORIDE 0.9% INJ 100 ML IV SCH (06:41)
[2017-01-22] MEDS: HEPARIN-D5W INJ 250 ML IV SCH (06:43)
[2017-01-22] MEDS: POTASSIUM CHLORIDE 20 MEQ PWD PACKET PO SCH (07:30)
[2017-01-22] MEDS: DIGOXIN 0.125 MG TAB PO SCH (07:31)
--- NOTE | 2017-01-22 08:30 | HHI.CCPN ---
Subjective Remarks/Hospital Course Patient is an 86-year-old male that presented to the ED with complaints of shortness of breath. As per EMS, patient had a right hip replacement performed on Sunday by Dr. Linares. Patient reports that he was discharged to home on . Patient reports that he felt fine after his discharge, and reported that last evening he had episodes of nausea, and indigestion so he decided not to take his second dose of ASA. Patients reports that patient had the chills, reports that he was feeling weak and has had a productive cough since last night.. Reports that this morning, he was complaining of shortness of breath. When patient's home nurse arrived, she noted that patients pulse ox was 35% on room air. Patient does not use home O2. EMS were called, fire rescue reports that patient's pulse ox was 50% on room air. Patient was put on a nonrebreather which brought his pulse ox to 80%. When EMS arrived on scene, patient's pulse ox went to the low 90s on a nonrebreather. In the ED ABG was obtained and the patient was noted to have an O2 sat duration of 56% on room air with a PA O2 of 29. The patient was placed on 100% O2 imaging studies were performed showing pulmonary edema, CTA performed negative for pulmonary embolus. The patient was given 80 mg of furosemide IV with good diuresis. Initial troponin was noted to be elevated the patient received Lovenox subcutaneous 1 dose, and an aspirin 81 mg. Patient does have history of hypothyroidism, CHF, A. fib, hypertension, colon cancer, he currently takes a baby aspirin and is not on any anticoagulants. Critical care medicine was consult for management. Subjective: 01/14: Tmax 98.0. WBC count trending down. Troponins was noted to be elevated. Atorvastatin added to medication regimen. The patient's chest x-ray revealed slight improvement in his pulmonary edema additional Lasix 40 mg IV given this a.m.. Cardiology consulted 01/13, appreciate recommendations The patient continued on BiPAP at 40% overnight we'll continue to attempt to wean to facemask this a.m.. Patient is tolerating a clear liquid diet. 01/15: Tmax 99.2. Morning labs pending. Patient was noted to have an episode of nausea last evening, given Zofran with resolution of symptoms. Concern for cardiac ischemia, EKG ordered this a.m.. Troponin level 1.[address] Linares and obtained clearance to begin heparin infusion.Echo showed elevated Transvalvular gradient w/ mean of 32, and Peak of 57. Patient given Lasix, this a.m.. 01/16: Tmax 99.8. The patient was seen by his associate programmer, Dr. Barrow last evening. Per report from the RN, Dr. Barrow plans to do a cardiac catheterization in the near future, when respiratory status improves. The patient received a total of 240 mg of Lasix in the last 24 hours, with 3 L diuresed. The patient had a short episode of atrial fib last night, and converted without any intervention .Persistent leukocytosis noted, ID consulted. 01/20 critical care medicine was reconsulted due to respiratory distress and failure, despite the aggressive diuresis and a BiPAP treatment patient's sats remained at low 80s with a respiratory rate 30s. Patient was intubated due to respiratory failure 01/21: Intubated yesterday for respiratory distress. wbc elevated at that time, but immediately after intubation. today, wbc downtrending. patient awake and following commands, fio2 downtrending. Cr rising, however, and clinically appears dehydrated. Bedside critical care ultrasound demonstrates grossly preserved biventricular function with an almost completely collapsable IVC with positive pressure ventilation. BNP also significantly lower than admission, and now in NSR this morning. 01/22 Patient is sedated with Diprivan and Fentanyl. Afebrile. Hgb 6.8 this morning. On Heparin drip Objective Vital Signs Date Time Temp Pulse Resp B/P Pulse Ox O2 Delivery O2 Flow Rate FiO2 01/22/17 06:00 83 01/22/17 04:00 40 01/22/17 04:00 98.8 18 87/48 96 01/20/17 08:00 Mechanical Ventilator 01/19/17 22:10 15.00 Intake and Output 01/21/17 01/21/17 01/21/17 07:59 15:59 23:59 Intake Total 119 ml 771 ml 864 ml Output Total 250 ml 150 ml 150 ml Balance -131 ml 621 ml 714 ml Result Diagram: 01/22/17 0427 01/22/17 0427 Other Results Laboratory Tests Test 01/21/17 01/21/17 01/22/17 09:12 17:50 04:27 Activated Partial 41.3 SEC 48.5 SEC Thromboplast Time Urine Color YELLOW Urine Turbidity CLOUDY Urine pH 5.0 Urine Specific [place] 1.021 Urine Protein 100 mg/dL Urine Glucose (UA) NEG mg/dL Urine Ketones TRACE mg/dL Urine Occult Blood SMALL Urine Nitrite NEG Urine Bilirubin NEG Urine Urobilinogen LESS THAN 2.0 MG/DL Urine Leukocyte Esterase TRACE Urine RBC 11 /hpf Urine WBC 23 /hpf Urine WBC Clumps OCC Urine Bacteria OCC /hpf Urine Hyaline Casts 9 /lpf Urine Granular Casts 31 /lpf Urine Mucus FEW /lpf Microscopic Urinalysis Comment CATH Urine Eosinophils NONE SEEN /HPF Urine Random Creatinine 163.3 MG/DL Urine Random Sodium 34 MEQ/L White Blood Count 22.3 TH/MM3 Red Blood Count 2.68 MIL/MM3 Hemoglobin 6.8 GM/DL Hematocrit 22.1 % Mean Corpuscular Volume 82.5 FL Mean Corpuscular Hemoglobin 25.4 PG Mean Corpuscular Hemoglobin 30.8 % Concent Red Cell Distribution Width 14.4 % Platelet Count 304 TH/MM3 Mean Platelet Volume 8.9 FL Sodium Level 144 MEQ/L Potassium Level 5.5 MEQ/L Chloride Level 107 MEQ/L Carbon Dioxide Level 29.3 MEQ/L Anion Gap 8 MEQ/L Blood Urea Nitrogen 77 MG/DL Creatinine 3.07 MG/DL Estimat Glomerular Filtration 20 ML/MIN Rate Random Glucose 105 MG/DL Calcium Level 8.2 MG/DL Phosphorus Level 5.4 MG/DL Albumin 1.9 GM/DL Digoxin Level 2.2 NG/ML Imaging Last Impressions Renal Ultrasound 01/21/17 0000 Signed Impressions: Service Date/Time: Saturday, January 21, 2017 16:06 - CONCLUSION: And mild echogenic cortex of normal-sized kidneys. There is no hydronephrosis. Bryant Monzon MD FACR Chest X-Ray 01/20/17 0000 Signed Impressions: Service Date/Time: Friday, January 20, 2017 03:01 - CONCLUSION: 1. ET tube in good position. 2. No pneumothorax. 3. Stable bilateral pulmonary interstitial infiltrates. Daryl Martins MD CT Angiography 01/13/17 1313 Signed Impressions: Service Date/Time: Friday, January 13, 2017 13:52 - CONCLUSION: 1. No evidence of pulmonary embolism. 2. Diffuse alveolar infiltrates most consistent with pulmonary edema. 3. Small bilateral pleural effusions and cardiomegaly. Pan Soria MD Objective Remarks GENERAL: Elderly gentleman intubated, sedated, critically ill. SKIN: Warm and dry. HEAD: Atraumatic. Normocephalic. EYES: Pupils equal and round. No scleral icterus. No injection or drainage. ENT: No nasal bleeding or discharge. Mucous membranes pink and moist. NECK: Trachea midline. No JVD. CARDIOVASCULAR: Normal rate, regular rhythm. Murmur 2/6 noted left sternal border RESPIRATORY: PRVC, peep 10, fio2 40%. Fine crackles noted in bases. Breath sounds equal bilaterally. GASTROINTESTINAL: Abdomen soft, non-tender, nondistended. No guarding. MUSCULOSKELETAL: Extremities without clubbing, cyanosis, or edema. No obvious deformities. NEUROLOGICAL: RASS -2. nods appropriately to questions. follows commands x 4. CAM -. Procedures None. Date of Insertion: January 13, 2017 A/P Assessment and Plan Neurologic: Sedated and intubated Propofol/fentanyl for vent synchrony. Daily sedation vacation Neurochecks per ICU protocol goal RASS -2. Respiratory: Acute hypoxemic respiratory failure- intubated 01/20 Pulmonary edema PRVC/AC RR 18, TV 400, IT 1.0, PEEP:10, FIO2 40%, decrease PEEP:5 Continue with vent support keep sat >92% Bronchodilators, ICU vent bundle. SBT trials as keanu. CXR showed b/l pulm infiltrates 5/6CTA no evidence of pulmonary embolus. Diffuse alveolar infiltrates consistent with pulmonary edema. Small bilateral pleural effusions. Cardiomegaly Maintain head of bed 30 Cardiovascular: NSTEMI History of A. fib CHF Cardiomegaly Grade 1 diastolic dysfunction Aortic Stenosis Given aspirin, Lovenox in ED 01/13 Cardiology consulted 01/13, appreciate recommendations Echocardiogram 01/14-ejection fraction 50-55%,no RWMA, diastolic dysfunction, tricuspid valve mild regurg, mitral valve mild regurg.PASP 54 mmHg elevated transvalvular gradients Continue Atorvastatin 20 mg daily home med, and amiodarone continued Initial troponin 0.68->1.44 Continue ASA 81 mg On 01/15 Heparin infusion initiated after receiving clearance from Orthopedic surgeon, Dr. Linares - Amiodarone held. concern by Dr. Barrow for non-cardiogenic pulmonary edema secondary to amiodarone. -On Flecainide 50mg Q8 Renal: Acute kidney injury Monitor renal function, I/O's, avoid nephrotoxins Cr: 3.07 from 2.33 with UO: 500ml in 24 hrs. Will diurese with Bumex 1mgx 1, give Kayexalate 30gms x1 for K 5.5 , d/c KCL 30mwq Q12 Renal is following- Dr. Malave Renal US: No hydronephrosis FEN/GI: Hiatal hernia Start TF-Nepro with goal rate 40ml/hr Heme/ID: Lactic acidosis- resolved Leukocytosis F/U blood urine and sputum cultures -NGTD Antibiotics received in the ED included Zosyn, and vancomycin Patient placed on empiric antibiotics cefepime, vancomycin and azithromycin on - Monitor CBC, check BC x 2 sets, check strep pneumonia and Legionella urinary Ag Follow up on sputum cx 01/21 Nasal washing negative for influenza on 01/13 Endocrine: Hyperglycemia of critical illness Hypothyroidism TSH normal Synthroid home medication 212 mcgs/d Glucose monitoring per ICU protocol. Low-dose regimen -- SSI Physical therapy ampulla mentation per Dr. Tran, patient is status post right total hip arthroplasty Prophylaxis: GI Prophylaxis Protonix DVT Prophylaxis -- SCDs Heparin infusion Lines: Peripheral IVs 2. Central line if indicated Critical Care: The total critical care time 30 minutes. Time to perform other separately billable procedures was not included in the critical care time. Addendum: Patient went into Vtach/Vfib arrest ACLS protocol was initiated and patient received Epi, bicarb, ca, Amiodarone and shock x2 after approx 24 mins there was no return in spontaneous circulation. Patient also started bleeding from ETT. Heparin drip was on hold. Discussed with patient's and family in presence of Dr. Franco and she agreed to stop code. Dori Velasquez MD January 22, 2017 08:30
[2017-01-22] MEDS: DOCUSATE SODIUM 50 MG/SENNA 8.6 MG TAB PO SCH (08:41)
[2017-01-22] MEDS: PANTOPRAZOLE SODIUM 40 MG VIAL IV SCH (08:41)
[2017-01-22] MEDS: LINEZOLID 600 MG TAB PO SCH (08:41)
[2017-01-22] MEDS: AZITHROMYCIN 250 MG TAB PO SCH (08:41)
[2017-01-22] MEDS: ATORVASTATIN 20 MG TAB PO SCH (08:42)
[2017-01-22] MEDS: ASPIRIN 81 MG CHEW TAB CHEW SCH (08:42)
[2017-01-22] MEDS: FLECAINIDE ACETATE 100 MG TAB PO SCH (08:42)
[2017-01-22] MEDS: SODIUM CHLORIDE 0.9% FLUSH 10 ML FLUSH IV FLUSH SCH (08:42)
[2017-01-22] MEDS ORDERED: SODIUM POLYSTYRENE SULFONATE SUSP 15 GM/60 ML CUP PO ONE (08:45)
[2017-01-22] MEDS ORDERED: BUMETANIDE INJ 1 MG/4 ML VIAL IV PUSH ONE (08:45)
--- NOTE | 2017-01-22 11:13 | HHI.NPPN ---
Subjective History of Present Illness patient is an 86-year-old male with a history of congestive heart failure, atrial fibrillation and apparently aortic stenosis. Patient status post recent right hip replacement prior to this admission. Subsequently presented with respiratory insufficiency said to be secondary to congestive heart failure and pneumonia. CTA negative for pulmonary embolism on presentation. Serum creatinine level noted to have been 1.14 January 18, 2017 subsequent 8 deteriorating today to a level of 2.33. Patient developed increasing respiratory distress and had to be intubated also hypotensive with worsening leukocytosis. Renal ultrasound performed indicated mild increased echogenicity. Chest x-ray shows increasing interstitial infiltrates. Patient can provide no history at time of consultation. Interval History Patient remains on ventilator. Nonverbal. Review of Systems General General Remarks Review of systems unobtainable because of patient's clinical condition. Objective Data Data 01/21/17 01/22/17 19:00 07:00 Intake Total 771 ml 1542 ml Output Total 150 ml 350 ml Balance 621 ml 1192 ml IV Total 431 ml 1542 ml Albumin 100 ml Other 240 ml Output Urine Total 150 ml 350 ml Vital Signs Date Time Temp Pulse Resp B/P Pulse Ox O2 Delivery O2 Flow Rate FiO2 01/22/17 07:40 96 40 01/22/17 06:00 83 01/22/17 04:00 40 01/22/17 04:00 83 01/22/17 04:00 98.8 83 18 87/48 96 01/22/17 03:59 95 40 01/22/17 02:08 96 40 01/22/17 02:00 122 01/22/17 00:00 99.3 90 18 88/53 96 01/22/17 00:00 40 01/22/17 00:00 89 01/21/17 22:52 96 40 01/21/17 22:00 85 01/21/17 20:19 95 40 01/21/17 20:00 40 01/21/17 20:00 99.4 97 10 92/51 94 01/21/17 20:00 85 01/21/17 18:00 93 01/21/17 16:00 97.7 90 20 91/55 95 01/21/17 16:00 40 01/21/17 16:00 90 01/21/17 14:00 91 01/21/17 12:00 95 01/21/17 12:00 99.4 95 22 92/52 94 01/21/17 12:00 40 01/21/17 11:37 93 40 -: 01/22/17 0427 01/22/17 0427 Microbiology 01/21/17 Gram Stain - Final, Resulted 01/21/17 Sputum Culture, Resulted Pending 01/22/17 Aerobic Blood Culture, Received Pending 01/22/17 Anaerobic Blood Culture, Received Pending 01/22/17 Aerobic Blood Culture, Received Pending 01/22/17 Anaerobic Blood Culture, Received Pending Medication Review Current Medications Furosemide 80 mg 80 mg ONCE ONCE IV PUSH Last administered on 01/13/17 13:15; Start 01/13/17 at 13:15; Stop 01/13/17 at 13:16; Status DC Piperacillin Sod/ Tazobactam Sod 50 ml @ 100 mls/hr ONCE ONCE IV Last administered on 01/13/17 14:37; Start 01/13/17 at 13:45; Stop 01/13/17 at 14:14; Status DC Vancomycin HCl/ Sodium Chloride (Vancomycin Inj/ NS 250 ml Inj) 261.5 ml @ 250 mls/hr ONCE ONCE IV Last administered on 01/13/17 15:16; Start 01/13/17 at 13: 45; Stop 01/13/17 at 14:47; Status DC Aspirin (Aspirin Chew) 162 mg ONCE ONCE CHEW Last administered on 01/13/17 14: 37; Start 01/13/17 at 14:00; Stop 01/13/17 at 14:01; Status DC Iohexol (Omnipaque 350 Inj) 75 ml STK-MED ONCE IV Last administered on 13:57; Start 01/13/17 at 13:57; Stop 01/13/17 at 13:58; Status DC Enoxaparin Sodium (Lovenox Inj) 78 mg ONCE ONCE SQ Last administered on 15:17; Start 01/13/17 at 14:45; Stop 01/13/17 at 14:46; Status DC Sodium Chloride (NS Flush) 2 ml UNSCH PRN IV FLUSH FLUSH AFTER USING IV ACCESS Last administered on 01/21/17 15:39; Start 01/13/17 at 15:45 Sodium Chloride (NS Flush) 2 ml BID IV FLUSH Last administered on 01/22/17 08: 42; Start 01/13/17 at 21:00 Acetaminophen (Tylenol) 650 mg Q6H PRN PO PAIN 6-10 AND/OR FEVER >101F Last administered on 01/19/17 09:12; Start 01/13/17 at 15:45 Acetaminophen/ Hydrocodone Bitart ([place] 5-325 Mg) 1 tab Q4H PRN PO PAIN SCALE 1 TO 5; Start 01/13/17 at 15:45 Pantoprazole Sodium (Protonix Inj) 40 mg DAILY IV Last administered on 08:41; Start 01/14/17 at 09:00 Ondansetron HCl (Zofran Inj) 4 mg Q6H PRN IV NAUSEA OR VOMITING Last administered on 01/15/17 06:06; Start 01/13/17 at 15:45 Senna/Docusate Sodium (Gertrude-Colace) 2 tab BID PO Last administered on 08:41; Start 01/13/17 at 21:00 Bisacodyl (Dulcolax Supp) 10 mg DAILY PRN RECTAL CONSTIPATION; Start 01/13/17 at 15:45 Magnesium Hydroxide (Milk Of Magnesia Liq) 30 ml Q12H PRN PO CONSTIPATION; Start 01/13/17 at 15:45; Stop 01/22/17 at 08:26; Status DC Albuterol/ Ipratropium (Duoneb Neb) 1 ampule Q4HR NEB PRN INH WHEEZING Last administered on 01/20/17 21:11; Start 01/13/17 at 15:45 Miscellaneous Information 1 Q361D XX ; Start 01/13/17 at 15:45 Chlorhexidine Gluconate (Chlorhexidine 2% Cloth) Taper DAILY@04 TOP Last administered on 01/20/17 04:00; Start 01/14/17 at 04:00; Stop 01/10/18 at 03:59 Chlorhexidine Gluconate 3 pack 3 pack UNSCH PRN TOP HYGIENIC CARE; Start at 15:45 Potassium Chloride 100 ml @ 50 mls/hr Q2H PRN IV For Potassium 2.8 - 3.2 mEq/L ; Start 01/13/17 at 15:45; Stop 01/17/17 at 11:52; Status DC Potassium Chloride (KCl 20 Meq Premix Inj) 100 ml @ 50 mls/hr Q2H PRN IV For Potassium 2.8 - 3.2 mEq/L Last administered on 01/17/17t 08:51; Start 01/13/17 at 15:45; Stop 01/17/17 at 11:52; Status DC Potassium Bicarb/ Potassium Chloride 50 meq 50 meq UNSCH PRN PO For Potassium 3.3 - 3.5 mEq/L; Start 01/13/17 at 15:45; Stop 01/17/17 at 11:52; Status DC Potassium Chloride 100 ml @ 25 mls/hr UNSCH PRN IV For Potassium 3.3 - 3.5 mEq /L; Start 01/13/17 at 15:45; Stop 01/17/17 at 11:52; Status DC Potassium Chloride 100 ml @ 50 mls/hr Q2H PRN IV For Potassium 3.3 - 3.5 mEq/L ; Start 01/13/17 at 15:45; Stop 01/17/17 at 11:52; Status DC Magnesium Sulfate/ Sodium Chloride (Magnesium Sulfate Inj/NS Inj) 100 ml @ 50 mls/hr UNSCH PRN IV For Magnesium 0.9 - 1.1 mg/dL; Start 01/13/17 at 15:45; Stop 01/17/17 at 11:52; Status DC Magnesium Oxide 800 mg 800 mg UNSCH PRN PO For Magnesium 1.2 - 1.6 mg/dL; Start 01/13/17 at 15:45; Stop 01/17/17 at 11:52; Status DC Magnesium Sulfate/ Sodium Chloride (Magnesium Sulfate Inj/NS Inj) 100 ml @ 50 mls/hr UNSCH PRN IV For Magnesium 1.2 - 1.6 mg/dL; Start 01/13/17 at 15:45; Stop 01/17/17 at 11:52; Status DC Potassium Phosphate 2000 mg 2,000 mg Q4H PRN PO For Phosphorus < 2.5 mg/dL; Start 01/13/17 at 15:45; Stop 01/17/17 at 11:51; Status DC Sodium Phosphate/ Sodium Chloride (Sodium Phosphate Inj/NS 250 ml Inj) 250 ml @ 42 mls/hr UNSCH PRN IV For Phosphorus < 2.5 mg/dL; Start 01/13/17 at 15:45; Stop 01/22/17 at 08:26; Status DC Potassium Phosphate 2000 mg 2,000 mg UNSCH PRN PO/TUBE SEE LABEL COMMENTS; Start 01/13/17 at 15:45; Stop 01/17/17 at 11:51; Status DC Cefepime HCl 2000 mg/Sodium Chloride 100 ml @ 200 mls/hr Q12H IV Last administered on 01/22/17 06:41; Start 01/13/17 at 18:00; Stop 01/22/17 at 09:06 ; Status DC Azithromycin 500 mg/Sodium Chloride 250 ml @ 250 mls/hr Q24H IV Last administered on 01/16/17 16:27; Start 01/13/17 at 17:00; Stop 01/17/17 at 14:29; Status DC Pharmacy Profile Note 0 ml @ 0 mls/hr UNSCH OTHER ; Start 01/13/17 at 15:45; Stop 01/17/17 at 14:29; Status DC Vancomycin HCl 1000 mg/Sodium Chloride 250 ml @ 250 mls/hr ONCE ONCE IV ; Start 01/13/17 at 17:00; Stop 01/13/17 at 17:00; Status DC Sodium Chloride 1,000 ml @ 42 mls/hr [id number] IV Last administered on 01/13/17 17:02; Start 01/13/17 at 17:00; Stop 01/15/17 at 08:07; Status DC Vancomycin HCl/ Sodium Chloride (Vancomycin Inj/ NS Inj) 100 ml @ 200 mls/hr ONCE ONCE IV Last administered on 01/13/17 18:27; Start 01/13/17 at 18:00; Stop 01/13/17 at 18:29; Status DC Atorvastatin Calcium (Lipitor) 20 mg DAILY PO Last administered on 01/22/17 08 :42; Start 01/14/17 at 09:00 Aspirin (Aspirin Chew) 81 mg DAILY CHEW Last administered on 01/22/17 08:42; Start 01/14/17 at 09:00 Furosemide (Lasix Inj) 40 mg STK-MED ONCE .ROUTE Last administered on 01/14/17 08:25; Start 01/14/17 at 08:15; Stop 01/14/17 at 08:16; Status DC Furosemide 40 mg 40 mg NOW ONCE IV PUSH Last administered on 01/14/17 08:36; Start 01/14/17 at 09:00; Stop 01/14/17 at 09:01; Status DC Vancomycin HCl/ Sodium Chloride (Vancomycin Inj/ NS 250 ml Inj) 250 ml @ 250 mls/hr Q24H IV Last administered on 01/16/17 18:50; Start 01/14/17 at 18:00; Stop 01/17/17 at 14:29; Status DC Miscellaneous Information SPECIFIC LAB TO BE PEDRO... ONCE ONCE .XX ; Start 01/17 at 17:45; Stop 01/17/17 at 17:46; Status Cancel Heparin Sodium/ Dextrose (Heparin-D5W Inj) 250 ml @ 0 mls/hr TITRATE IV Last administered on 01/22/17 06:43; Start 01/15/17 at 08:45 Furosemide (Lasix Inj) 40 mg ONCE ONCE IV PUSH Last administered on 01/15/17 09:29; Start 01/15/17 at 08:45; Stop 01/15/17 at 09:19; Status DC Amiodarone HCl (Cordarone) 200 mg DAILY PO Last administered on 01/17/17 08:40 ; Start 01/15/17 at 11:15; Stop 01/17/17 at 15:05; Status DC Levothyroxine Sodium (Synthroid) 100 mcg DAILY@06 PO Last administered on 06:40; Start 01/15/17 at 11:15 Levothyroxine Sodium (Synthroid) 112 mcg DAILY@0600 PO Last administered on 06:40; Start 01/16/17 at 06:00 Furosemide (Lasix Inj) 40 mg ONCE ONCE IV PUSH Last administered on 01/15/17 17:46; Start 01/15/17 at 16:30; Stop 01/15/17 at 16:33; Status DC Furosemide (Lasix Inj) 40 mg ONCE ONCE IV PUSH Last administered on 01/15/17 21:02; Start 01/15/17 at 20:45; Stop 01/15/17 at 20:46; Status DC Furosemide (Lasix) 40 mg BID PO Last administered on 01/17/17 08:40; Start 01/16/17 at 09:00; Stop 01/17/17 at 09:53; Status DC Potassium Bicarb/ Potassium Chloride (K-[place] Cl Eff) 50 meq ONCE ONCE PO Last administered on 01/16/17 08:42; Start 01/16/17 at 08:45; Stop 01/16/17 at 08: 52; Status DC Furosemide (Lasix Inj) 20 mg ONCE ONCE IV PUSH Last administered on 01/17/17 10:32; Start 01/17/17 at 10:00; Stop 01/17/17 at 10:04; Status DC Furosemide 20 mg 20 mg BID@09,18 IV PUSH Last administered on 01/17/17 17:18; Start 01/17/17 at 18:00; Stop 01/18/17 at 13:14; Status DC Potassium Chloride (KCl 20 Meq Premix Inj) 100 ml @ 50 mls/hr Q2H IV Last administered on 01/17/17 23:37; Start 01/17/17 at 20:00; Stop 01/17/17 at 23:59 ; Status DC Potassium Chloride (KCl) 10 meq Q8HR PO Last administered on 01/18/17 08:33; Start 01/18/17 at 09:00; Stop 01/18/17 at 13:16; Status DC Azithromycin (Zithromax) 500 mg DAILY PO Last administered on 01/22/17 08:41; Start 01/18/17 at 09:00 Linezolid (Zyvox) 600 mg Q12HR PO Last administered on 01/22/17 08:41; Start 01/17/17 at 21:00 Digoxin (Lanoxin Inj) 0.5 mg ONCE ONCE IV PUSH Last administered on 01/17/17 15:49; Start 01/17/17 at 15:15; Stop 01/17/17 at 15:16; Status DC Flecainide Acetate (Tambocor) 50 mg BID PO Last administered on 01/20/17 09:06 ; Start 01/17/17 at 21:00; Stop 01/20/17 at 15:47; Status DC Digoxin (Lanoxin) 0.125 mg DAILY PO Last administered on 01/21/17 09:21; Start 01/18/17 at 09:00; Stop 01/22/17 at 08:26; Status DC Digoxin (Lanoxin Inj) 0.125 mg DAILY IV PUSH Last administered on 01/20/17 09: 07; Start 01/18/17 at 09:00; Status Hold Miscellaneous (Pill Splitter) 1 ea UNSCH PRN OTHER SEE LABEL COMMENTS; Start at 21:00 Furosemide 20 mg 20 mg ONCE ONCE IV PUSH Last administered on 01/18/17 09:30 ; Start 01/18/17 at 09:30; Stop 01/18/17 at 09:31; Status DC Potassium Chloride (KCl 20 Meq Premix Inj) 100 ml @ 50 mls/hr Q2H IV Last administered on 01/18/17 11:45; Start 01/18/17 at 09:45; Stop 01/18/17 at 13:44 ; Status DC Furosemide (Lasix Inj) 40 mg ONCE ONCE IV PUSH ; Start 01/18/17 at 11:00; Stop 01/18/17 at 11:01; Status DC Furosemide (Lasix Inj) 40 mg BID@09,18 IV PUSH Last administered on 01/20/17 18:22; Start 01/18/17 at 18:00; Status Hold Potassium Chloride (KCl) 30 meq Q12HR PO Last administered on 01/20/17 21:41; Start 01/18/17 at 21:00; Stop 01/21/17 at 07:54; Status DC Potassium Chloride (KCl) 60 meq ONCE ONCE PO Last administered on 01/19/17 13 :18; Start 01/19/17 at 13:00; Stop 01/19/17 at 13:01; Status DC Furosemide (Lasix Inj) 40 mg ONCE ONCE IV PUSH Last administered on 01/20/17 00:33; Start 01/20/17 at 00:15; Stop 01/20/17 at 00:16; Status DC Lorazepam (Ativan Inj) 0.5 mg ONCE ONCE IV PUSH Last administered on 00:41; Start 01/20/17 at 00:45; Stop 01/20/17 at 00:46; Status DC Etomidate (Amidate Inj) 20 mg ONCE ONCE IV PUSH Last administered on 02:24; Start 01/20/17 at 02:00; Stop 01/20/17 at 02:01; Status DC Succinylcholine Chloride 70 mg 70 mg ONCE ONCE IV PUSH Last administered on 02:24; Start 01/20/17 at 02:00; Stop 01/20/17 at 02:01; Status DC Propofol 100 ml @ 0 mls/hr TITRATE IV Last administered on 01/21/17 15:38; Start 01/20/17 at 02:45 Propofol 100 ml @ As Directed STK-MED ONCE .ROUTE Last administered on 04:31; Start 01/20/17 at 02:40; Stop 01/20/17 at 02:41; Status DC Midazolam HCl 100 ml @ 0 mls/hr TITRATE IV ; Start 01/20/17 at 03:30; Stop 01/21 at 15:01; Status DC Fentanyl Citrate (fentaNYL DRIP) 250 ml @ 0 mls/hr TITRATE IV Last administered on 01/21/17 20:57; Start 01/20/17 at 03:30 Magnesium Oxide 800 mg 800 mg UNSCH PRN PO For Magnesium 1.2 - 1.6 mg/dL; Start 01/20/17 at 11:45 Magnesium Sulfate 4 gm/Sodium Chloride 100 ml @ 50 mls/hr UNSCH PRN IV For Magnesium 0.9 - 1.1 mg/dL; Start 01/20/17 at 11:45; Stop 01/22/17 at 08:26; Status DC Magnesium Sulfate 2 gm/Sodium Chloride 100 ml @ 50 mls/hr UNSCH PRN IV For Magnesium 1.2 - 1.6 mg/dL; Start 01/20/17 at 11:45; Stop 01/22/17 at 08:26; Status DC Potassium Chloride 100 ml @ 50 mls/hr Q2H PRN IV For Potassium 2.8 - 3.2 mEq/L ; Start 01/20/17 at 11:45; Stop 01/22/17 at 08:27; Status DC Potassium Chloride 100 ml @ 50 mls/hr Q2H PRN IV For Potassium 3.3 - 3.5 mEq/L ; Start 01/20/17 at 11:45; Stop 01/22/17 at 08:27; Status DC Potassium Chloride 100 ml @ 50 mls/hr Q2H PRN IV For Potassium 2.8 - 3.2 mEq/L ; Start 01/20/17 at 11:45; Stop 01/22/17 at 08:27; Status DC Potassium Chloride (KCl 40 Meq Premix Inj) 100 ml @ 25 mls/hr UNSCH PRN IV For Potassium 3.3 - 3.5 mEq/L; Start 01/20/17 at 11:45; Stop 01/22/17 at 08:27; Status DC Potassium Phosphate (K-Phos) 2,000 mg Q4H PRN PO For Phosphorus < 2.5 mg/dL; Start 01/20/17 at 11:45 Potassium Phosphate 2000 mg 2,000 mg UNSCH PRN PO/TUBE SEE LABEL COMMENTS; Start 01/20/17 at 11:45; Stop 01/22/17 at 08:27; Status DC Sodium Phosphate/ Sodium Chloride (Sodium Phosphate Inj/NS 250 ml Inj) 250 ml @ 42 mls/hr UNSCH PRN IV For Phosphorus < 2.5 mg/dL; Start 01/20/17 at 11:45; Stop 01/22/17 at 08:27; Status DC Flecainide Acetate (Tambocor) 50 mg Q8H PO Last administered on 01/22/17 08:42 ; Start 01/20/17 at 15:47 Potassium Chloride 30 meq 30 meq Q12HR PO Last administered on 01/21/17 20:49 ; Start 01/21/17 at 09:00; Stop 01/22/17 at 08:27; Status DC Sodium Chloride (NS 1000 ml Inj) 1,000 ml @ 80 mls/hr [id number] IV Last administered on 01/21/17 12:50; Start 01/21/17 at 13:00; Stop 01/22/17 at 08:27 ; Status DC Albumin Human (Albumin 25% Inj) 25 gm NOW ONCE IV Last administered on 12:50; Start 01/21/17 at 12:45; Stop 01/21/17 at 12:46; Status DC Ipratropium [place] (Atrovent Neb) 0.5 mg Q6HR NEB NEB Last administered on 09:45; Start 01/21/17 at 16:00 Sodium Polystyrene Sulfonate (Kayexalate Liq) 30 gm ONCE ONCE PO Last administered on 01/22/17 09:00; Start 01/22/17 at 08:45; Stop 01/22/17 at 08:46 ; Status DC Bumetanide 1 mg 1 mg ONCE ONCE IV PUSH Last administered on 01/22/17t 09:00; Start 01/22/17 at 08:45; Stop 01/22/17 at 08:46; Status DC Cefepime HCl/ Sodium Chloride (Maxipime Inj/NS Inj) 100 ml @ 200 mls/hr Q12H IV ; Start 01/22/17 at 18:00 Physical Exam General Appearance: Malnourished Eyes Eye Exam: Sclera White Neck Neck Exam: Trachea Midline Pulmonary Resp Exam: Clear Bilaterally, Breath Sounds Equal, No Distress Cardiology CV Exam: Regular, Murmur (midsystolic audible over precordium. /6.) Gastrointestinal/Abdomen GI Exam: Soft, Non-Tender Integumentary Skin Exam: Clear, Warm, Dry, Tenting Extremeties Extremities Exam: No Edema Assessment/Plan Problem List: (1) Acute kidney insufficiency Plan: Patient's acute renal insufficiency most likely related to hemodynamic issues with hypotension and I suspect that the patient is intravascular volume depleted based on clinical examination. Cannot exclude the possibility however the patient may have progressed to acute kidney injury in which case azotemia will continue to worsen. Noted that ejection fraction relatively well- preserved and BNP not significantly elevated. Would be inclined to hold diuresis for the present and continue IV hydration with monitoring of response.. Hopefully the patient's renal indices will stabilize and dialysis can be avoided. Noted Kayexalate ordered for hyperkalemia. Medications should be adjusted for the patient's estimated GFR if clinically indicated. Avoid agents with significant potential for nephrotoxicity possible including NSAIDs for analgesia, iodine contrast agents. Gadolinium is contraindicated if the GFR is below 30. (2) CKD (chronic kidney disease), stage II Plan: Most likely secondary to nephrosclerosis of hypertension and aging. (3) Acute respiratory failure with hypoxia Plan: Suspect infectious process primary issue here at the current time. Defer management to infectious disease/critical care. Angela Malave MD January 22, 2017 11:13
--- NOTE | 2017-01-22 11:26 | HHI.IDPN ---
Subjective Subjective Remarks is an 86 y/o CM with PMHx of paroxysmal atrial fibrillation on [facility] amiodarone, no prior ischemic heart disease, recent Right total hip arthroplasty. Per his who provided most of the history patient was doing ok post operatively and participating in PT/OT at home. With this background patient was admitted to the hospital with shortness of breath, nausea and anorexia. Over the last 48 hrs prior to admission patient started getting progressively short of breath and when home health checked his O2 sats at home they were in late 30s. EMS was called, patient was started on oxygen and transported to the ED. In the ED his sats were 58%. CXR in ED showed pulmonary edema. CT angiogram was negative for PE but demonstrated pulmonary edema. Cardiology has been following patient and determined. His cardiac enzymes were 0.68 on admission and later elevated to 1.07. Pertinent positives and negatives: No history of lung disease, COPD, asthma, bronchitis, no history of GI bleeding or acid peptic disease. No history of liver disease. There is no history of significant renal failure, no history of DVT or previous pulmonary thromboembolic disease. He does have a history of colon cancer. ID consulted for evaluation and Mment of persistent leucocytosis, ? Pneumonia in a patient with concomitant CHF, recent Total hip replacement. Overnight events reviewed Intubated overnight. Resp fatigue as a reason for intubation. No fever No rash No diarrhea WBC still elevated. Antibiotics Cefepime IV Azithro oral Lines Line sites with no e/o infection Past Medical History reviewed. Allergies: Uncoded Allergies: RUBBER (Allergy, Severe, ITCHING, 12/29/16) Objective . Vital Signs Date Time Temp Pulse Resp B/P Pulse Ox O2 Delivery O2 Flow Rate FiO2 01/22/17 10:00 63 01/22/17 08:00 40 01/22/17 08:00 98.1 83 23 90/52 97 01/22/17 08:00 83 01/22/17 07:40 96 40 01/22/17 06:00 83 01/22/17 04:00 40 01/22/17 04:00 83 01/22/17 04:00 98.8 83 18 87/48 96 01/22/17 03:59 95 40 01/22/17 02:08 96 40 01/22/17 02:00 122 01/22/17 00:00 99.3 90 18 88/53 96 01/22/17 00:00 40 01/22/17 00:00 89 01/21/17 22:52 96 40 01/21/17 22:00 85 01/21/17 20:19 95 40 01/21/17 20:00 40 01/21/17 20:00 99.4 97 10 92/51 94 01/21/17 20:00 85 01/21/17 18:00 93 01/21/17 16:00 97.7 90 20 91/55 95 01/21/17 16:00 40 01/21/17 16:00 90 01/21/17 14:00 91 01/21/17 12:00 95 01/21/17 12:00 99.4 95 22 92/52 94 01/21/17 12:00 40 01/21/17 11:37 93 40 01/21/17 01/21/17 01/22/17 14:59 22:59 06:59 Intake Total 771 ml 864 ml 678 ml Output Total 150 ml 150 ml 200 ml Balance 621 ml 714 ml 478 ml IV Total 431 ml 864 ml 678 ml Albumin 100 ml Other 240 ml Output Urine Total 150 ml 150 ml 200 ml . Laboratory Tests Test 01/21/17 01/22/17 04:23 04:27 White Blood Count 25.0 TH/MM3 22.3 TH/MM3 Red Blood Count 3.24 MIL/MM3 2.68 MIL/MM3 Hemoglobin 8.1 GM/DL 6.8 GM/DL Hematocrit 26.6 % 22.1 % Mean Corpuscular Volume 82.1 FL 82.5 FL Mean Corpuscular Hemoglobin 25.1 PG 25.4 PG Mean Corpuscular Hemoglobin 30.5 % 30.8 % Concent Red Cell Distribution Width 14.2 % 14.4 % Platelet Count 375 TH/MM3 304 TH/MM3 Mean Platelet Volume 7.9 FL 8.9 FL Laboratory Tests Test 01/21/17 01/22/17 04:23 04:27 Sodium Level 143 MEQ/L 144 MEQ/L Potassium Level 4.4 MEQ/L 5.5 MEQ/L Chloride Level 101 MEQ/L 107 MEQ/L Carbon Dioxide Level 33.7 MEQ/L 29.3 MEQ/L Anion Gap 8 MEQ/L 8 MEQ/L Blood Urea Nitrogen 55 MG/DL 77 MG/DL Creatinine 2.33 MG/DL 3.07 MG/DL Estimat Glomerular Filtration 27 ML/MIN 20 ML/MIN Rate Random Glucose 105 MG/DL 105 MG/DL Calcium Level 8.6 MG/DL 8.2 MG/DL B-Type Natriuretic Peptide 173 PG/ML Phosphorus Level 5.4 MG/DL Albumin 1.9 GM/DL Microbiology Date/Time Procedure Status Source Growth 01/20/17 16:55 Urine Culture - Final Complete Urine Catheterized Urine NO GROWTH IN 48 HOURS. 01/21/17 14:20 Gram Stain - Final Resulted Sputum Endotracheal 01/21/17 14:20 Sputum Culture Resulted Sputum Endotracheal Pending 01/22/17 09:21 Aerobic Blood Culture Received Blood Peripheral Pending 01/22/17 09:21 Anaerobic Blood Culture Received Blood Peripheral Pending 01/22/17 09:27 Aerobic Blood Culture Received Blood Peripheral Pending 01/22/17 09:27 Anaerobic Blood Culture Received Blood Peripheral Pending Imaging Last Impressions Chest X-Ray 01/18/17 0600 Signed Impressions: Service Date/Time: January 04:25 - CONCLUSION: Unchanged diffuse bilateral infiltrates. Ethan Spence Jr., MD CT Angiography 01/13/17 1313 Signed Impressions: Service Date/Time: Friday, January 13, 2017 13:52 - CONCLUSION: 1. No evidence of pulmonary embolism. 2. Diffuse alveolar infiltrates most consistent with pulmonary edema. 3. Small bilateral pleural effusions and cardiomegaly. Pan Soria MD Physical Exam GENERAL: This is a well-nourished, well-developed patient, in no apparent distress. On 50% Non rebreather. SKIN: No rashes, ecchymoses or lesions. Cool and dry. HEAD: Atraumatic. Normocephalic. No temporal or scalp tenderness. EYES: Pupils equal round and reactive. Extraocular motions intact. No scleral icterus. No injection or drainage. ENT: Intubated. On nose bridge there is an eschar now from the BiPAP rubbing against the skin despite Mepilex. NECK: Trachea midline. Supple, nontender, no meningeal signs. CARDIOVASCULAR: No murmur RESPIRATORY: Breath sounds equal bilaterally but decreased in bases. Basilar crackles. GASTROINTESTINAL: Abdomen soft, non-tender, nondistended. MUSCULOSKELETAL: Right hip surgical site intact with no e.o infection. NEUROLOGICAL: Awake and alert. Grossly non focal Psych: cooperative IV line sites with no e.o infection. Assessment & Plan Remarks Pneumonia plus component of Pulm edema. 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 Recs: Continue Cefepime IV DC Azithro DC zyvox. Follow cultures Follow clinically. Clinically appears to be in fluid overload. Recheck Procalcitonin. d/w pts in room. Sharon Day MD January 22, 2017 11:25
--- NOTE | 2017-01-22 12:11 | HHI.PR ---
Subjective Remarks Intubated for progressive resp failure . Now on 40 % FIO2,and sedated. Diuretics on hold due to deterioration of renal functions. On antibiotics. Objective Vital Signs Date Time Temp Pulse Resp B/P Pulse Ox O2 Delivery O2 Flow Rate FiO2 01/22/17 10:00 63 01/22/17 08:00 40 01/22/17 08:00 98.1 83 23 90/52 97 01/22/17 08:00 83 01/22/17 07:40 96 40 01/22/17 06:00 83 01/22/17 04:00 40 01/22/17 04:00 83 01/22/17 04:00 98.8 83 18 87/48 96 01/22/17 03:59 95 40 01/22/17 02:08 96 40 01/22/17 02:00 122 01/22/17 00:00 99.3 90 18 88/53 96 01/22/17 00:00 40 01/22/17 00:00 89 01/21/17 22:52 96 40 01/21/17 22:00 85 01/21/17 20:19 95 40 01/21/17 20:00 40 01/21/17 20:00 99.4 97 10 92/51 94 01/21/17 20:00 85 01/21/17 18:00 93 01/21/17 16:00 97.7 90 20 91/55 95 01/21/17 16:00 40 01/21/17 16:00 90 01/21/17 14:00 91 I/O 01/21/17 01/21/17 01/21/17 01/22/17 01/22/17 01/22/17 07:00 15:00 23:00 07:00 15:00 23:00 Intake Total 119 ml 771 ml 864 ml 678 ml Output Total 250 ml 150 ml 150 ml 200 ml Balance -131 ml 621 ml 714 ml 478 ml IV Total 119 ml 431 ml 864 ml 678 ml Albumin 100 ml Other 240 ml Output Urine Total 250 ml 150 ml 150 ml 200 ml Stool Total 0 ml Result Diagram: 01/22/17 0427 01/22/17 0427 Objective Remarks GENERAL: This is a moderately overweight, elderly white male who is on the vent. HEENT: Head normocephalic. Pupils are reactive. NECK: Supple with no venous distension. Trachea midline. CHEST: Distant breath sounds. There are bibasilar crackles, with wheezes throughout both lung moreno. HEART SOUNDS: irregular. S1 and S2. No murmur. ABDOMEN: Soft, benign. No mass, no organomegaly. EXTREMITIES: Mild edema 1+. Decreased pulses. Sedated. SKIN: No lesions are noted. Assessment and Plan Assessment and Plan IMPRESSION 1. Acute respiratory failure. 2. Pulmonary edema with cardiomyopathy. 3. History of ORIF of the right hip. 4. Atrial fibrillation with CHF. 5. Non-STEMI. Plan : 1. Wean FIO2 to 35 %. 2. Hold diuretic 3. Reduce PEEP to 5 cm 4. Continue antibiotics.Per ID 5. Nebs qid , duoneb. 6. Keep sedated. Fentanyl /Diprivan 7. CPAP trial daily Steven Inman MD January 22, 2017 12:10
[2017-01-22] MEDS ORDERED: SODIUM CHLORID 0.9% 500 ML INJ 500 ML IV ONE (14:15)
--- NOTE | 2017-01-22 15:08 | HHI.PR ---
Addendum to Inpatient Note Additional Information Residents responded to code blue. 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 Lopez [address] MD R1 January 22, 2017 15:08
[2017-01-22] MEDS ORDERED: AMIODARONE INJ 450 MG in D5W (EXCEL BAG) 241 ML IV SCH (15:30)
[2017-01-22] MEDS ORDERED: CEFEPIME 1000 MG/NS 100 ML IV SCH ×2 (18:00)
[2017-01-23 13:29] LABS: UR UREA/CREAT RATIO 6.66 mg/mg (())
--- NOTE | 2017-02-26 12:33 | MD ---
cc: ARISTEO SOUZA M.D. ADMISSION DATE: 01/13/2017 DISCHARGE DATE: 01/22/2017 DATE OF 1930 BRIEF HISTORY AND HOSPITAL COURSE The patient is an 86-year-old male with a past medical history of coronary artery disease, CHF, atrial fibrillation, aortic stenosis, hypothyroidism who presented to [facility] ED on January 13 with shortness of breath. He had a right hip replacement performed by Dr. Linares and was discharged home at 2 days after. The patient reported chills, generalized weakness, productive cough. He was hypoxemic. The patient was placed on a non-rebreather mask. In the ER the patient was placed on 100% oxygen and a CTA performed which was negative for pulmonary embolism. He was given Lasix for pulmonary edema. The patient was noted to have elevated troponin and was given one dose of Lovenox subcu and aspirin. The patient was admitted to [facility] for close observation. The patient did okay and was transferred to the hospitalist's service. However, on January 20 Critical Care Medicine was reconsulted for respiratory failure despite aggressive diuretics and BiPap treatment and the patient was subsequently intubated for respiratory failure. He was placed on Diprivan and fentanyl infusion for sedation and vent synchrony. The patient was also placed on bronchodilators and his chest x-ray showed pulmonary infiltrates. During his hospital course the patient was seen by the Cardiology Service and he had an echocardiogram on January 14 which showed an EF of 50-55% with diastolic dysfunction and moderate pulmonary hypertension with PA systolic pressure of 54 mmHg. The patient was on aspirin and heparin infusion, after was cleared by orthopedic surgery. He was also on flecainide 50 mg q. 8 per cardiology's recommendations. His ICU course was complicated by worsening renal function and the patient was followed by Dr. Malave from the Nephrology Service. He had a renal ultrasound which did not show any evidence of hydronephrosis. The patient was started on nutrition support in the form of tube feeds at 40 mL/hour. He was also placed on broad-spectrum antibiotics of cefepime, vancomycin and azithromycin. His nasal washing was negative for influenza. The patient was on sliding scale insulin for glycemic control. On January 22 the patient went into cardiopulmonary arrest, V-tach/V-fib. ACLS protocol was initiated and the patient was given epi, bicarb, calcium, amiodarone and was shocked twice. After approximately 24 minutes, there was no return in spontaneous circulation. He also started bleeding from the ET tube and heparin drip was held. After discussion with the patient's and the rest of the family members in the presence of Dr. Franco, she agreed to stop the code and the patient . The family were at the bedside MD JUDIE Kumar/ALEXANDER /3:29 PM /12:28 PM
== END 2017-01-22 15:40 | disposition expired | DRG 208 ==
LOC: NEPE 12:25 → NEDA 14:47 → HCVR 18:08 → HCIN 01-14 18:39 → HIME 01-18 11:18
PROVIDERS: ADMIT Internal Medicine Critical Care Medicine; ATTEND Internal Medicine Critical Care Medicine
PROC: 5A09557 Assistance with Respiratory Ventilation, Greater than 96 Consecutive Hours, Continuous Positive Airway Pressure (ICD-10-PCS; 2017-01-13)
PROC: 5A1945Z Respiratory Ventilation, 24-96 Consecutive Hours (ICD-10-PCS; principal; 2017-01-20)
PROC: 0BH17EZ Insertion of Endotracheal Airway into Trachea, Via Natural or Artificial Opening (ICD-10-PCS; 2017-01-20)
PROC: 5A2204Z Restoration of Cardiac Rhythm, Single (ICD-10-PCS; 2017-01-22)
DX: J96.01 Acute respiratory failure with hypoxia (principal); I21.4 Non-ST elevation (NSTEMI) myocardial infarction; J18.9 Pneumonia, unspecified organism; I47.2 Ventricular tachycardia; I13.0 Hypertensive heart and chronic kidney disease with heart failure and stage 1 through stage 4 chronic kidney disease, or unspecified chronic kidney disease; N17.9 Acute kidney failure, unspecified; E87.2 Acidosis; E46 Unspecified protein-calorie malnutrition; I50.30 Unspecified diastolic (congestive) heart failure; I50.1 Left ventricular failure, unspecified; I42.9 Cardiomyopathy, unspecified; Z68.1 Body mass index [BMI] 19.9 or less, adult; E87.5 Hyperkalemia; I48.0 Paroxysmal atrial fibrillation; I48.91 Unspecified atrial fibrillation; R73.9 Hyperglycemia, unspecified; E03.9 Hypothyroidism, unspecified; I49.01 Ventricular fibrillation; K44.9 Diaphragmatic hernia without obstruction or gangrene; I35.0 Nonrheumatic aortic (valve) stenosis; R01.1 Cardiac murmur, unspecified; N18.2 Chronic kidney disease, stage 2 (mild); E87.6 Hypokalemia; E86.0 Dehydration; Y95 Nosocomial condition; T46.2X5A Adverse effect of other antidysrhythmic drugs, initial encounter; Z85.038 Personal history of other malignant neoplasm of large intestine; Z90.49 Acquired absence of other specified parts of digestive tract; Z96.641 Presence of right artificial hip joint
CPT/HCPCS: 31500; 36430; 36600; 71010; 71275; 76775; 80048; 80053; 80061; 80069; 80162; 81001; 82248; 82435; 82550; 82552; 82565; 82570; 82805; 82947; 83605; 83735; 83880; 84100; 84132; 84145; 84295; 84300; 84443; 84484; 84520; 84540; 85025; 85027; 85610; 85730; 86850; 86900; 86901; 86920; 87040; 87070; 87086; 87205; 87641; 87804; 93005; 93306; 94002; 94003; 94640; 94664; 96374; 96375; C9113; J0330; J0456; J0692; J1160; J1644; J1650; J1940; J2060; J2405; J2543; J3010; J3370; J3480; J7030; J7040; J7050; J7644; P9016; P9047; Q9967